=== PATIENT | male | born 1955 | race Caucasian/White ===

== ENCOUNTER 2018-08-25 18:59 | Emergency (ER) | payer BC, OTHER ==
[2018-08-25 19:13] VITALS: BP 157/92
--- NOTE | 2018-08-25 19:45 | EDM.PDOC ---
ED HPI GENERAL MEDICAL PROBLEM - General Chief Complaint: Trauma Stated Complaint: FELL IN BATHROOM HIT HEAD NECK INJURIED Time Seen by Provider: 08/25/18 19:08 Source of Information: Reports: Patient History Limitations: Reports: No Limitations - History of Present Illness INITIAL COMMENTS - FREE TEXT/NARRATIVE: The patient presents with a headache and neck pain after a fall this evening. He said he fell last week. He has some sinus issues and the other day he laid down and bed and got congested in the back of his throat and got up and then he feels passed out. This evening he was laying in bed and he got up to go to the bathroom and he tripped and fell and hit the cabinet door under the sink. He had no LOC. He is on eliquis for DVTs. He has a headache and neck pain. He is from the [facility] and talked with one of the commercial escrow officer down there and he gave him a c-collar. He denies numbness or weakness. He has an abrasion to the top of his head. He has no chest pain or shortness of breath. He has no arm, hip or leg pain. Onset: Sudden Duration: Minutes: Location: Reports: Head, Neck Quality: Reports: Sharp Severity: Moderate Improves with: Reports: Immobilization Worsens with: Reports: Movement Context: Reports: Trauma (He tripped and fell on his way to the bathroom) Associated Symptoms: Reports: Headaches. Denies: Chest Pain, Fever/Chills, Nausea/Vomiting, Shortness of Breath Neck Pain Score (Numeric/FACES): 5 head Pain Score (Numeric/FACES): 6 - Related Data Allergies Allergy/AdvReac Type Severity Reaction Status Date / Time bee pollen Allergy Cannot Verified 06/05/16 07:49 Remember Home Meds: Home Meds Omeprazole 20 mg PO DAILY 06/07/15 [History] atorvaSTATin [Lipitor] 10 mg PO DAILY 03/21/16 [History] Furosemide 40 mg PO DAILY 06/04/16 [History] Apixaban [Eliquis] 5 mg PO DAILY 08/25/18 [History] Cholecalciferol (Vitamin D3) [Vitamin D] 5,000 units PO DAILY 08/25/18 [History] Past Medical History HEENT History: Reports: Impaired Vision, Sinusitis Cardiovascular History: Reports: Blood Clots/VTE/DVT, Hypertension, SOB on Exertion Other Cardiovascular History: dvts, edema, swelling Respiratory History: Reports: Sleep Apnea, SOB Gastrointestinal History: Reports: GERD, Hiatal Hernia Genitourinary History: Reports: None Musculoskeletal History: Reports: Back Pain, Chronic, Neck Pain, Chronic, Osteoarthritis Neurological History: Reports: Headaches, Chronic Psychiatric History: Reports: None Endocrine/Metabolic History: Reports: Obesity/BMI 30+ - Past Surgical History HEENT Surgical History: Reports: Adenoidectomy, Naso-Sinus Surgery, Oral Surgery , Tonsillectomy, Other (See Below) GI Surgical History: Reports: Colonoscopy, Hernia, Abdominal, Hernia Repair/ Other Musculoskeletal Surgical History: Reports: Arthroscopic Knee, Other (See Below) Social & Family History - Tobacco Use Smoking Status *Q: Former Smoker Used Tobacco, but Quit: Yes Month/Year Tobacco Last Used: 1989 - Caffeine Use Caffeine Use: Reports: Coffee - Recreational Drug Use Recreational Drug Use: No Review of Systems - Review of Systems Review Of Systems: See Below Constitutional: Reports: No Symptoms Eyes: Reports: No Symptoms Ears: Reports: No Symptoms Nose: Reports: No Symptoms Mouth/Throat: Reports: No Symptoms Respiratory: Reports: No Symptoms Cardiovascular: Reports: No Symptoms GI/Abdominal: Reports: No Symptoms Genitourinary: Reports: No Symptoms Musculoskeletal: Reports: Neck Pain Skin: Reports: Other (Abrasion to the top of his head) Neurological: Reports: Headache. Denies: Numbness, Weakness ED EXAM, GENERAL - Physical Exam Exam: See Below Exam Limited By: No Limitations General Appearance: Alert, No Apparent Distress Ears: Normal External Exam Nose: Normal Inspection Head: Other (abrasion to the top of his head) Neck: Tender Midline (mild), Other (C-colar is on) Respiratory/Chest: No Respiratory Distress, Lungs Clear, Normal Breath Sounds Cardiovascular: Regular Rate, Rhythm, No Edema, No Murmur GI/Abdominal: Soft, Non-Tender, No Organomegaly, No Mass Back Exam: Normal Inspection Extremities: Normal Inspection Neurological: Alert, Oriented, No Motor/Sensory Deficits Course - Vital Signs Last Recorded V/S: Last Vital Signs Temp 98.2 F 08/25/18 19:09 Pulse 94 08/25/18 19:09 Resp 16 08/25/18 19:09 BP 157/92 H 08/25/18 19:09 Pulse Ox 97 08/25/18 19:09 - Orders/Labs/Meds Orders: Active Orders 24 hr Category Date Time Status Cardiac Monitoring [RC] . DIRECTED Care 08/25/18 19:13 Active COMPREHENSIVE METABOLIC PN,CMP [CHEM] Stat Lab 08/25/18 19:41 Received TROPONIN I [CHEM] Stat Lab 08/25/18 19:41 Received Labs: Laboratory Tests 08/25/18 08/25/18 Range/Units 19:41 19:41 WBC 7.14 (4.23-9.07) K/mm3 RBC 4.18 L (4.63-6.08) M/mm3 Hgb 15.5 (13.7-17.5) gm/L Hct 38.1 L (40.1-51.0) % MCV 91.1 (79.0-92.2) fl MCH 37.1 H (25.7-32.2) pg MCHC 40.7 H (32.2-35.5) g/dl RDW Std Deviation 43.4 (35.1-43.9) fL Plt Count 141 L (163-337) K/mm3 MPV 9.5 (9.4-12.3) fl Neut % (Auto) 57.2 (34.0-67.9) % Lymph % (Auto) 26.8 (21.8-53.1) % [place] % (Auto) 11.5 (5.3-12.2) % Eos % (Auto) 4.1 (0.8-7.0) Baso % (Auto) 0.3 (0.1-1.2) % Neut # (Auto) 4.09 (1.78-5.38) K/mm3 Lymph # (Auto) 1.91 (1.32-3.57) K/mm3 [place] # (Auto) 0.82 (0.30-0.82) K/mm3 Eos # (Auto) 0.29 (0.04-0.54) K/mm3 Baso # (Auto) 0.02 (0.01-0.08) K/mm3 PT 10.0 (9.5-12.1) SECONDS INR < 0.93 APTT 20 L (24-31) SECONDS - Re-Assessments/Exams Free Text/Narrative Re-Assessment/Exam: 08/25/18 19:[address] of his head and cervical spine and labs. 08/25/18 20:[address] of his cervical spine shows mild degenerative change. Nothing acute is identified on CT study of the cervical spine. The CT of his head shows sinus findings that are most likely chronic. Mild generalized atrophy. No acute intracranial abnormality is identified. His labs look good. I will discharge him home. Departure - Departure Time of Disposition: 20:30 Disposition: Home, Self-Care 01 Condition: Good Clinical Impression: Fall Qualifiers: Encounter type: initial encounter Qualified Code(s): W19.XXXA - Unspecified fall, initial encounter Abrasion of scalp Qualifiers: Encounter type: initial encounter Qualified Code(s): S00.01XA - Abrasion of scalp, initial encounter Cervical strain Qualifiers: Encounter type: initial encounter Qualified Code(s): S16.1XXA - Strain of muscle, fascia and tendon at neck level, initial encounter Head injury Qualifiers: Encounter type: initial encounter Qualified Code(s): S09.90XA - Unspecified injury of head, initial encounter - Discharge Information *PRESCRIPTION DRUG MONITORING PROGRAM REVIEWED*: Not Applicable *COPY OF PRESCRIPTION DRUG MONITORING REPORT IN PATIENT BENNY: Not Applicable Referrals: Edilia Chatterjee MD [Primary Care Provider] - Forms: ED Department Discharge Additional Instructions: Take tylenol or motrin for pain. Clean the abrasion with warm soapy water 2 times per day and apply antibiotic ointment after for 3 days. Please return if you are worse. - My Orders Last 24 Hours: My Active Orders 08/25/18 19:13 Cardiac Monitoring [RC] . DIRECTED 08/25/18 19:41 COMPREHENSIVE METABOLIC PN,CMP [CHEM] Stat TROPONIN I [CHEM] Stat - Assessment/Plan Last 24 Hours: My Active Orders 08/25/18 19:13 Cardiac Monitoring [RC] . DIRECTED 08/25/18 19:41 COMPREHENSIVE METABOLIC PN,CMP [CHEM] Stat TROPONIN I [CHEM] Stat
--- NOTE | 2018-08-25 19:54 | CT ---
CT cervical spine Technique: Multiple axial sections through the cervical spine were obtained from above C1 inferiorly to the bottom of T2. Reconstructed sagittal and coronal images were reviewed. Findings: Incomplete posterior arch of C1 is noted which is a normal variant. Moderate to severe disc space narrowing is noted at C3-4. Moderate left-sided neural foraminal stenosis is noted at C3-4. Posterior disc space narrowing is noted at C4-5. Posterior disc space narrowing is noted at C5-6. No bony central canal stenosis is seen. Mild scattered degenerative apophyseal change is seen throughout the cervical spine. No fracture is identified. No abnormal subluxation is seen. Impression: 1. Mild degenerative change as noted above. 2. Nothing acute is identified on CT study of the cervical spine. Diagnostic code #2
--- NOTE | 2018-08-25 19:56 | CT ---
Head CT Technique: Multiple axial sections through the brain were obtained. Intravenous contrast was not utilized. Comparison: No prior intracranial imaging. Findings: Ventricles long basal cisterns and sulci over the convexities are mildly prominent. No abnormal parenchymal densities are seen. No evidence of intracranial hemorrhage. No midline shift or mass effect is seen. Bone window settings were reviewed which shows no acute calvarial abnormality. Mucosal thickening is noted within portions of the ethmoid and frontal sinuses. Minimal mucosal thickening is seen within sphenoid sinus. Impression: 1. Sinus findings as noted above. Findings most likely are chronic. 2. Mild generalized atrophy. 3. No acute intracranial abnormality is identified. Diagnostic code #2
== END 2018-08-25 20:35 | disposition home or self-care (01) ==
LOC: JD.ED 18:59
DX: S16.1XXA Strain of muscle, fascia and tendon at neck level, initial encounter (principal); S00.01XA Abrasion of scalp, initial encounter; S09.90XA Unspecified injury of head, initial encounter; I10 Essential (primary) hypertension; W01.0XXA Fall on same level from slipping, tripping and stumbling without subsequent striking against object, initial encounter; Y92.002 Bathroom of unspecified non-institutional (private) residence as the place of occurrence of the external cause; Z91.030 Bee allergy status; Z79.899 Other long term (current) drug therapy; Z87.891 Personal history of nicotine dependence
CPT/HCPCS: 36415; 70450; 70450-26; 72125; 72125-26; 80053; 84484; 85025; 85610; 85730; 99283; 99284-25

== ENCOUNTER 2019-12-22 15:00 | Emergency (ER) | payer OTHER, MEDICARE ==
[2019-12-22 15:20] VITALS: BP 160/92; PULSE 83
--- NOTE | 2019-12-22 16:10 | EDM.PDOC ---
ED HPI GENERAL MEDICAL PROBLEM - General Chief Complaint: Lower Extremity Injury/Pain Stated Complaint: R FOOT AND LEG PAIN Time Seen by Provider: 12/22/19 15:25 Source of Information: Reports: Patient History Limitations: Reports: No Limitations - History of Present Illness INITIAL COMMENTS - FREE TEXT/NARRATIVE: Patient is a 64-year-old male who presents to the emergency department with complaints of redness, swelling, and pain to the base of his right great toe. Symptoms started about 2 days ago. Pain occasionally radiates across the top of his foot and up his leg. He also has lower extremity swelling to the level of the ankle. Patient has a history of DVTs. States [facility] and they recommended he come to the ER to be evaluated for a DVT. He is currently on Eliquis 5 mg twice daily. Denies a history of gout. 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 He denies any chest pain, lightheadedness, or shortness of breath. Right Foot Pain Score (Numeric/FACES): 7 - Related Data Allergies Allergy/AdvReac Type Severity Reaction Status Date / Time bee pollen Allergy Cannot Verified 12/22/19 15:20 Remember Home Meds: Home Meds Omeprazole 20 mg PO BID 06/07/15 [History] atorvaSTATin [Lipitor] 10 mg PO DAILY 03/21/16 [History] Furosemide 40 mg PO DAILY 06/04/16 [History] Apixaban [Eliquis] 5 mg PO DAILY 08/25/18 [History] Cholecalciferol (Vitamin D3) [Vitamin D] 4,000 units PO DAILY 08/25/18 [History] Albuterol [Proventil HFA] 2 puff INH Q6HR 12/22/19 [History] Fluticasone Propionate [24 Hour Allergy] 2 spray NASBOTH DAILY 12/22/19 [History] predniSONE [Prednisone] 20 mg PO ASDIRECTED #15 tablet 12/22/19 [Rx] Past Medical History HEENT History: Reports: Impaired Vision, Sinusitis Cardiovascular History: Reports: Blood Clots/VTE/DVT, Hypertension, SOB on Exertion Other Cardiovascular History: dvts, edema, swelling Respiratory History: Reports: Sleep Apnea, SOB Gastrointestinal History: Reports: GERD, Hiatal Hernia Genitourinary History: Reports: None Musculoskeletal History: Reports: Back Pain, Chronic, Neck Pain, Chronic, Osteoarthritis Neurological History: Reports: Headaches, Chronic Psychiatric History: Reports: None Endocrine/Metabolic History: Reports: Obesity/BMI 30+ - Past Surgical History HEENT Surgical History: Reports: Adenoidectomy, Naso-Sinus Surgery, Oral Surger y, Tonsillectomy, Other (See Below) GI Surgical History: Reports: Colonoscopy, Hernia, Abdominal, Hernia Repair/Other Musculoskeletal Surgical History: Reports: Arthroscopic Knee, Other (See Below) Social & Family History - Tobacco Use Smoking Status *Q: Former Smoker Used Tobacco, but Quit: Yes Month/Year Tobacco Last Used: 1989 - Caffeine Use Caffeine Use: Reports: Coffee - Recreational Drug Use Recreational Drug Use: No Review of Systems - Review of Systems Review Of Systems: See Below Constitutional: Reports: No Symptoms Eyes: Reports: No Symptoms Ears: Reports: No Symptoms Nose: Reports: No Symptoms Mouth/Throat: Reports: No Symptoms Respiratory: Reports: No Symptoms. Denies: Shortness of Breath, Cough Cardiovascular: Reports: No Symptoms. Denies: Chest Pain, Lightheadedness GI/Abdominal: Reports: No Symptoms Genitourinary: Reports: No Symptoms Musculoskeletal: Reports: Other (Redness, pain, swelling to the base of the right great toe) Skin: Reports: No Symptoms Neurological: Reports: No Symptoms ED EXAM, GENERAL - Physical Exam Exam: See Below General Appearance: Alert, WD/WN, No Apparent Distress Respiratory/Chest: No Respiratory Distress, Lungs Clear, Normal Breath Sounds, No Accessory Muscle Use, Chest Non-Tender Cardiovascular: Normal Peripheral Pulses, Regular Rate, Rhythm, No Gallop, No JVD, No Murmur, No Rub GI/Abdominal: Normal Bowel Sounds, Soft, Non-Tender, No Organomegaly, No Disten tion, No Abnormal Bruit, No Mass Extremities: Other (Redness, warmth, and swelling over the base of the right great toe. 1+ edema to the right foot and ankle.) Psychiatric: Normal Affect, Normal Mood Skin Exam: Warm, Dry, Intact, Normal Color, No Rash Course - Vital Signs Last Recorded V/S: Last Vital Signs Temp 99.0 F 12/22/19 15:11 Pulse 83 12/22/19 15:11 Resp 18 12/22/19 15:11 BP 160/92 H 12/22/19 15:11 Pulse Ox 98 12/22/19 15:11 - Orders/Labs/Meds Labs: Laboratory Tests 12/22/19 12/22/19 Range/Units 16:02 16:02 WBC 9.76 H (4.23-9.07) K/mm3 RBC 5.30 (4.63-6.08) M/mm3 Hgb 15.7 (13.7-17.5) gm/dl Hct 48.3 (40.1-51.0) % MCV 91.1 (79.0-92.2) fl MCH 29.6 (25.7-32.2) pg MCHC 32.5 (32.2-35.5) g/dl RDW Std Deviation 44.1 H (35.1-43.9) fL Plt Count 170 (163-337) K/mm3 MPV 9.1 L (9.4-12.3) fl Neut % (Auto) 69.4 H (34.0-67.9) % Lymph % (Auto) 17.6 L (21.8-53.1) % [place] % (Auto) 11.7 (5.3-12.2) % Eos % (Auto) 1.0 (0.8-7.0) Baso % (Auto) 0.2 (0.1-1.2) % Neut # (Auto) 6.77 H (1.78-5.38) K/mm3 Lymph # (Auto) 1.72 (1.32-3.57) K/mm3 [place] # (Auto) 1.14 H (0.30-0.82) K/mm3 Eos # (Auto) 0.10 (0.04-0.54) K/mm3 Baso # (Auto) 0.02 (0.01-0.08) K/mm3 Sodium 142 (136-145) mEq/L Potassium 3.6 (3.5-5.1) mEq/L Chloride 103 (98-107) mEq/L Carbon Dioxide 33 H (21-32) mEq/L Anion Gap 9.6 (5-15) BUN 12 (7-18) mg/dL Creatinine 1.4 H (0.7-1.3) mg/dL Est Cr Clr Drug Dosing 50.21 mL/min Estimated GFR (MDRD) 51 (>60) mL/min BUN/Creatinine Ratio 8.6 L (14-18) Glucose 112 (80-115) mg/dL Uric Acid 8.0 H (3.5-7.2) mg/dL Calcium 8.9 (8.5-10.1) mg/dL Total Bilirubin 0.5 (0.2-1.0) mg/dL AST 15 (15-37) U/L ALT 23 (16-63) U/L Alkaline Phosphatase 71 (46-116) U/L C-Reactive Protein 0.5 (<1.0) mg/dL Total Protein 7.1 (6.4-8.2) g/dl Albumin 3.5 (3.4-5.0) g/dl Globulin 3.6 gm/dL Albumin/Globulin Ratio 1.0 (1-2) - Re-Assessments/Exams Free Text/Narrative Re-Assessment/Exam: On exam, patient has redness, warmth, and slight edema over the base of the right great toe. My suspicion is that is suffering from gout, however he is concerned that he could have a blood clot due to his history. He is on Eliquis, so my suspicion for this is quite low, however we will complete a venous Doppler of the right lower extremity to rule out DVT. 12/22/19 17:17 Ultrasound of the right lower extremity was negative for DVT. Blood work is significant for uric acid elevated at 8.0. Patient is likely suffering from gout. We will start him on a course of prednisone with the first dose to be given here. Discharge instructions as documented. Departure - Departure Time of Disposition: 17:18 Disposition: Home, Self-Care 01 Condition: Good Clinical Impression: Gout Qualifiers: Gout site: toe Gout etiology: unspecified cause Chronicity: acute Laterality: right Qualified Code(s): M10.9 - Gout, unspecified - Discharge Information *PRESCRIPTION DRUG MONITORING PROGRAM REVIEWED*: No *COPY OF PRESCRIPTION DRUG MONITORING REPORT IN PATIENT BENNY: No Prescriptions: predniSONE [Prednisone] 20 mg PO ASDIRECTED #15 tablet Referrals: Edilia Chatterjee MD [Primary Care Provider] - Forms: ED Department Discharge Additional Instructions: You were seen in the emergency department today for pain, redness, and warmth to the base of your right great toe with some swelling of the right foot into the ankle. Your work-up included blood work and an ultrasound of your right lower extremity. Ultrasound was negative for DVT. Your blood work did show an elevated uric acid level consistent with a diagnosis of gout. You have been started on prednisone which is an anti-inflammatory. Take this medication as prescribed. You may use [id number] Tylenol as needed for pain. Ice over the toe intermittently for the next few days. If you should experience any new or worsening symptoms of concern, please do not hesitate to return to the emergency department. Sepsis Event Note (ED) - Evaluation Sepsis Screening Result: No Definite Risk - Focused Exam Vital Signs: Vital Signs Temp Pulse Resp BP Pulse Ox 12/22/19 15:11 99.0 F 83 18 160/92 H 98
--- NOTE | 2019-12-22 17:03 | US ---
Right lower extremity deep venous ultrasound: Duplex and color Doppler evaluation was obtained of the right common femoral, proximal greater saphenous, superficial femoral, popliteal, posterior tibial and peroneal veins. Left common femoral vein was also evaluated. Findings: Normal phasic flow, augmentation and compression is seen. Posterior tibial veins show very limited flow but appear to be patent. Impression: 1. Limited flow within the posterior tibial veins which appear patent. 2. Nothing appreciated to indicate deep venous thrombosis within the right lower extremity or within the left common femoral vein. Diagnostic code #2 This report was dictated in MDT
== END 2019-12-22 17:40 | disposition home or self-care (01) ==
LOC: JD.ED 15:00
DX: M10.9 Gout, unspecified (principal); Z91.030 Bee allergy status; Z79.01 Long term (current) use of anticoagulants; Z79.899 Other long term (current) drug therapy; K21.9 Gastro-esophageal reflux disease without esophagitis; I10 Essential (primary) hypertension
CPT/HCPCS: 36415; 80053; 84550; 85025; 86140; 93971-26-RT; 93971-RT; 99283; 99284-25

== ENCOUNTER 2021-02-25 13:11 | Emergency (ER) | payer MEDICARE, OTHER ==
[2021-02-25 13:52] VITALS: BP 147/75; PULSE 83
--- NOTE | 2021-02-25 15:14 | CR ---
Chest: Portable view of the chest was obtained. Comparison: No prior chest x-ray is available, prior chest CT of 04/02/16 was utilized. Heart size and mediastinum are within normal limits. Lungs are clear with no acute parenchymal change. Bony structures show nothing acute. Impression: 1. Nothing acute is seen on portable chest x-ray. Diagnostic code #1
--- NOTE | 2021-02-25 15:41 | EDM.PDOC ---
ED HPI GENERAL MEDICAL PROBLEM - General Chief Complaint: Fever Stated Complaint: FEVER COUGH Time Seen by Provider: 02/25/21 13:55 Source of Information: Reports: Patient, RN Notes Reviewed - History of Present Illness INITIAL COMMENTS - FREE TEXT/NARRATIVE: 65 yr old male with cough, low grade fever, chills off and on for about the last 3 days. Has had some dyspnea. No vomiting or diarrhea. No chest pain. Has not been vacinated. - Related Data Allergies Allergy/AdvReac Type Severity Reaction Status Date / Time bee pollen Allergy Severe Cannot Verified 02/25/21 13:51 Remember Home Meds: Home Meds Omeprazole 20 mg PO BID 06/07/15 [History] atorvaSTATin [Lipitor] 10 mg PO DAILY 03/21/16 [History] Furosemide 40 mg PO DAILY 06/04/16 [History] Apixaban [Eliquis] 5 mg PO BID 08/25/18 [History] Cholecalciferol (Vitamin D3) [Vitamin D] 4,000 units PO DAILY 08/25/18 [History] Albuterol [Proventil HFA] 2 puff INH Q6HR 12/22/19 [History] Fluticasone Propionate [24 Hour Allergy] 2 spray NASBOTH DAILY 12/22/19 [History] predniSONE [Prednisone] 20 mg PO DAILY 02/25/21 [History] Past Medical History HEENT History: Reports: Impaired Vision, Sinusitis Cardiovascular History: Reports: Blood Clots/VTE/DVT, Hypertension, SOB on Exertion Other Cardiovascular History: dvts, edema, swelling Respiratory History: Reports: Sleep Apnea, SOB Gastrointestinal History: Reports: GERD, Hiatal Hernia Genitourinary History: Reports: None Musculoskeletal History: Reports: Back Pain, Chronic, Neck Pain, Chronic, Osteoarthritis Neurological History: Reports: Headaches, Chronic Psychiatric History: Reports: None Endocrine/Metabolic History: Reports: Obesity/BMI 30+ Hematologic History: Reports: Anticoagulation Therapy - Past Surgical History HEENT Surgical History: Reports: Adenoidectomy, Naso-Sinus Surgery, Oral Surgery, Tonsillectomy, Other (See Below) GI Surgical History: Reports: Colonoscopy, Hernia, Abdominal, Hernia Repair/Other Musculoskeletal Surgical History: Reports: Arthroscopic Knee, Other (See Below) Other Musculoskeletal Surgeries/Procedures:: ulnar transposition Social & Family History - Tobacco Use Tobacco Use Status *Q: Never Tobacco User - Caffeine Use Caffeine Use: Reports: Coffee - Recreational Drug Use Recreational Drug Use: No ED ROS GENERAL - Review of Systems Review Of Systems: See Below Constitutional: Reports: Fever, Chills HEENT: Denies: Sinus Problem, Throat Pain Respiratory: Reports: Shortness of Breath, Cough Cardiovascular: Denies: Chest Pain Endocrine: Reports: Fatigue GI/Abdominal: Denies: Abdominal Pain, Nausea, Vomiting Musculoskeletal: Denies: Neck Pain Skin: Reports: No Symptoms Neurological: Denies: Headache ED EXAM, GENERAL - Physical Exam Exam: See Below General Appearance: Alert, No Apparent Distress Throat/Mouth: Normal Inspection Neck: Supple Respiratory/Chest: No Respiratory Distress, Lungs Clear, Normal Breath Sounds. No: Rales, Rhonchi, Wheezing Cardiovascular: Regular Rate, Rhythm GI/Abdominal: Non-Tender Extremities: Normal Inspection. No: Pedal Edema, Leg Pain, Increased Warmth, Redness Skin Exam: Warm, Dry, Normal Color Course - Vital Signs Last Recorded V/S: Last Vital Signs Temp 98.9 F 02/25/21 13:49 Pulse 83 02/25/21 13:49 Resp 24 H 02/25/21 13:49 BP 147/75 H 02/25/21 13:49 Pulse Ox 94 L 02/25/21 13:49 - Orders/Labs/Meds Labs: Laboratory Tests 02/25/21 02/25/21 02/25/21 Range/Units 14:14 14:45 15:39 WBC 6.26 (4.23-9.07) K/mm3 RBC 4.99 (4.63-6.08) M/mm3 Hgb 15.4 (13.7-17.5) gm/dl Hct 46.8 (40.1-51.0) % MCV 93.8 H (79.0-92.2) fl MCH 30.9 (25.7-32.2) pg MCHC 32.9 (32.2-35.5) g/dl RDW Std Deviation 45.9 H (35.1-43.9) fL Plt Count 125 L (163-337) K/mm3 MPV 9.4 (9.4-12.3) fl Neut % (Auto) 68.4 H (34.0-67.9) % Lymph % (Auto) 16.0 L (21.8-53.1) % [place] % (Auto) 15.2 H (5.3-12.2) % Eos % (Auto) 0 L (0.8-7.0) Baso % (Auto) 0.2 (0.1-1.2) % Neut # (Auto) 4.29 (1.78-5.38) K/mm3 Lymph # (Auto) 1.00 L (1.32-3.57) K/mm3 [place] # (Auto) 0.95 H (0.30-0.82) K/mm3 Eos # (Auto) 0.00 L (0.04-0.54) K/mm3 Baso # (Auto) 0.01 (0.01-0.08) K/mm3 C-Reactive Protein < 0.2 (<1.0) mg/dL Urine Color Yellow (Yellow) Urine Appearance Clear (Clear) Urine pH 6.0 (5.0-8.0) Ur Specific [place] 1.025 (1.005-1.030) Urine Protein Trace H (Negative) Urine Glucose (UA) Negative (Negative) Urine Ketones 2+ H (Negative) Urine Occult Blood Negative (Negative) Urine Nitrite Negative (Negative) Urine Bilirubin 1+ H (Negative) Urine Urobilinogen 1.0 (0.2-1.0) Ur Leukocyte Esterase Negative (Negative) Urine RBC 0-5 (0-5) /hpf Urine WBC 0-5 (0-5) /hpf Ur Squamous Epith Cells 0-5 (0-5) /hpf Amorphous Sediment Few H (NOT SEEN) /hpf Urine Bacteria Many H (FEW) /hpf Urine Mucus Few (FEW) /hpf - Re-Assessments/Exams Free Text/Narrative Re-Assessment/Exam: 02/25/21 16:20 With all of the covid going around I did want to screen him for covid. Pt refused. Concerned about "cancer risk from the swab" I am not going to argue with him. That is his choice. CXR clear, WBC normal, CRP 0.2 so it would be very unlikely that he has covid at this time. Ua does not show infection. Pt notified of UA result. Departure - Departure Time of Disposition: 15:39 Disposition: Home, Self-Care 01 Condition: Fair Clinical Impression: Viral syndrome - Discharge Information Instructions: Fever, Adult, [id number] Referrals: PCP,None [Primary Care Provider] - Forms: ED Department Discharge Additional Instructions: Your CXR looks good, no visible pneumonia. Your WBC is also normal which usually goes up with a serious bacterial infection. I will call you results of your urinalysis when it becomes available. If you need an antibiotic I will send it to your Pharmacy. I will discuss that with you when I call results. Rest, drink plenty of fluids. Follow up cllinic as needed, return to ED as needed if symptoms worsening in any way. Sepsis Event Note (ED) - Evaluation Sepsis Screening Result: No Definite Risk - Focused Exam Vital Signs: Vital Signs Temp Pulse Resp BP Pulse Ox 02/25/21 13:49 98.9 F 83 24 H 147/75 H 94 L
== END 2021-02-25 15:45 | disposition home or self-care (01) ==
LOC: JD.ED 13:11
DX: B34.9 Viral infection, unspecified (principal); I10 Essential (primary) hypertension; K21.9 Gastro-esophageal reflux disease without esophagitis; E66.9 Obesity, unspecified; Z68.33 Body mass index [BMI] 33.0-33.9, adult; Z79.899 Other long term (current) drug therapy; Z91.030 Bee allergy status; Z79.01 Long term (current) use of anticoagulants; Z86.718 Personal history of other venous thrombosis and embolism
CPT/HCPCS: 36415; 71045; 71045-26; 81001; 85025; 86140; 99283-25

== ENCOUNTER 2021-03-06 08:56 | Inpatient (IN) | payer MEDICARE, OTHER ==
[2021-03-06] MEDS: Dexamethasone 10 MG/ML SDV IVPUSH SCH (09:29)
--- NOTE | 2021-03-06 09:48 | EDM.PDOC ---
<Mabel Azevedo - Last Filed: 03/06/21 22:50> ED HPI GENERAL MEDICAL PROBLEM - General Chief Complaint: Respiratory Problem Stated Complaint: LOW O2 Time Seen by Provider: 03/06/21 09:11 - Related Data Allergies Allergy/AdvReac Type Severity Reaction Status Date / Time bee pollen Allergy Unknown Cannot Verified 03/07/21 13:19 Remember Home Meds: Home Meds Omeprazole 20 mg PO BID 06/07/15 [History] atorvaSTATin [Lipitor] 20 mg PO DAILY 03/21/16 [History] Furosemide 40 mg PO DAILY 06/04/16 [History] Apixaban [Eliquis] 5 mg PO BID 08/25/18 [History] Cholecalciferol (Vitamin D3) [Vitamin D] 50 mcg PO DAILY 08/25/18 [History] Albuterol [Proventil HFA] 2 puff INH Q6HR 12/22/19 [History] Fluticasone Propionate [24 Hour Allergy] 2 spray NASBOTH DAILY 12/22/19 [Hist ory] Lutein/Minerals/Vit A,C & E [Ocuvite] 1 tab PO DAILY 03/07/21 [History] Course - Re-Assessments/Exams Free Text/Narrative Re-Assessment/Exam: 03/06/21 17:32 Care assumed from Terese Lay NP. Patient resting comfortably at this time. Vital signs remained stable. 03/06/21 21:00 Nursing staff report oxygen saturation came down into the 80s while on the nonrebreather. He is currently up on the commode. I have ordered high flow oxygen to be initiated. 03/06/21 22:50 Patient is maintaining oxygen saturation in the low 90s on 60 L of O2 at 90% FiO2 by high flow nasal cannula. Case was discussed with ER physician, Dr. Masters. He will assume care and disposition of patient at end of shift. Departure - Departure Disposition: Admitted As Inpatient 64 Clinical Impression: Pneumonia due to COVID-19 virus, Hypoxia - Discharge Information <Juan Manuel Bryson - Last Filed: 03/07/21 09:54> Course - Re-Assessments/Exams Free Text/Narrative Re-Assessment/Exam: 03/07/21 10:04 We had a hospital bed open up care I have reviewed the situation with Dr. Lira who will assume care Departure - Departure Time of Disposition: 10:04 <Terese Lay - Last Filed: 03/10/21 07:38> ED HPI GENERAL MEDICAL PROBLEM - General Source of Information: Reports: Patient History Limitations: Reports: Other (Patient is a very poor historian.) - History of Present Illness INITIAL COMMENTS - FREE TEXT/NARRATIVE: 65-year-old male presents to the emergency department accompanied by his with complaints of severe shortness of breath. Patient is a poor historian and cannot give much history. Looking at past history, patient was seen in this emergency department on 02/25/2021. At that time he complained of a cough, low- grade fever, chills off and on for 3 days prior to that and some shortness of breath he had not had vomiting or diarrhea. He denied chest pain. He had not received his Covid vaccination. Patient did have labs completed at that time and they were essentially unremarkable. The physician requested to do a Covid swab however the patient did refuse due to "cancer risk from the swab". Chest x-ray was clear on that visit as well. He was then discharged home. Past medical history from that visit reveals a history of blood clots/VTE/DVT, hypertension and shortness of breath on exertion. He denies tobacco history. Upon presentation during triage today patient is dusky in appearance. His O2 saturations at the time of triage are in the 70s on room air. He is dyspneic and and able to speak more than 1-2 words per sentence. He is also tachypneic. The patient's is here and does notify nursing staff that the patient has a significant history of alcoholism and noncompliance with his medications. Past Medical History HEENT History: Reports: Impaired Vision, Sinusitis Cardiovascular History: Reports: Blood Clots/VTE/DVT, Hypertension, SOB on Exertion Other Cardiovascular History: dvts, edema, swelling Respiratory History: Reports: Sleep Apnea, SOB Gastrointestinal History: Reports: GERD, Hiatal Hernia Genitourinary History: Reports: None Musculoskeletal History: Reports: Back Pain, Chronic, Neck Pain, Chronic, Osteoarthritis Neurological History: Reports: Headaches, Chronic Psychiatric History: Reports: None Endocrine/Metabolic History: Reports: Obesity/BMI 30+ Hematologic History: Reports: Anticoagulation Therapy - Past Surgical History HEENT Surgical History: Reports: Adenoidectomy, Naso-Sinus Surgery, Oral Surgery, Tonsillectomy, Other (See Below) GI Surgical History: Reports: Colonoscopy, Hernia, Abdominal, Hernia Repair/Other Musculoskeletal Surgical History: Reports: Arthroscopic Knee, Other (See Below) Other Musculoskeletal Surgeries/Procedures:: ulnar transposition Social & Family History - Caffeine Use Caffeine Use: Reports: Coffee ED ROS GENERAL - Review of Systems Review Of Systems: Unable To Obtain Reason Not Obtained: Patient is a very poor historian. Only able to speak in 1-2 word Constitutional: Reports: Fatigue Respiratory: Denies: Pleuritic Chest Pain Cardiovascular: Denies: Chest Pain Neurological: Reports: No Symptoms Psychiatric: Reports: No Symptoms Hematologic/Lymphatic: Reports: No Symptoms ED EXAM, GENERAL - Physical Exam Exam: See Below Exam Limited By: Other (Patient is a poor historian. He is only speaking in 1-2 word sentences as well.) General Appearance: Lethargic, Severe Distress Ears: Normal External Exam, Hearing Grossly Normal Nose: Normal Inspection Throat/Mouth: Normal Inspection, Normal Voice, No Airway Compromise, Perioral Cyanosis Head: Atraumatic, Normocephalic Neck: Normal Inspection, Supple Respiratory/Chest: Respiratory Distress (Severe), Decreased Breath Sounds, Crackles (Bilaterally posteriorly), Accessory Muscle Use Cardiovascular: Normal Peripheral Pulses, Regular Rate, Rhythm, No Edema, No Murmur Peripheral Pulses: 2+: Radial (L), Radial (R) GI/Abdominal: Normal Bowel Sounds, Soft, Non-Tender, No Distention (Male) Exam: Deferred Rectal (Males) Exam: Deferred Back Exam: Normal Inspection Extremities: Normal Range of Motion, Non-Tender, Mottled Neurological: Confused (Due to hypoxia) Psychiatric: Anxious Skin Exam: Warm, Dry, Intact, No Rash, Other (Dusky) Lymphatic: No Adenopathy #1 Interpretation EKG Date: 03/06/21 Time: 09:29 Rhythm: NSR Rate (Beats/Min): 101 [place]: Normal P-Wave: Present QRS: Normal ST-T: Normal QT: Normal Comparison: NA - No Prior EKG EKG Interpretation Comments: Per Dr. Chacon interpretation: Sinus tachycardia at a rate of 101; ventricular premature complex; probable left atrial enlargement; low voltage, precordial leads; artifact in leads I, 2, 3, aVR, aVL, aVF Course - Vital Signs Text/Narrative:: As stated above, patient presents with respiratory distress. History of Covid- like symptoms however had been refusing testing on last ED visit. At the time of my exam, patient's O2 saturations are in the 70s on room air. Nursing staff did apply a nasal cannula which brought his O2 saturations up into the 80s. I have applied a nonrebreather mask on this patient at 15 L. Eventually patient's O2 saturations did come up into the 90s. Again, patient is a very poor historian. Lung sounds are diminished bilaterally. His skin is hot to touch. I have ordered lab studies to include a CBC, CMP, magnesium, D-dimer, PT/INR, PTT, ferritin, LDH, C-reactive protein, lactic acid and blood cultures x2. Will also obtain an EKG and a chest x-ray. We will also obtain arterial blood gases for this patient. We will get a Covid swab as well. Last Recorded V/S: Last Vital Signs Temp 97.3 F 03/09/21 23:37 Pulse 91 03/09/21 23:37 Resp 60 H 03/09/21 23:37 BP 149/82 H 03/09/21 23:37 Pulse Ox 77 L 03/10/21 05:44 - Orders/Labs/Meds Orders: Medication Orders Acetaminophen (Acetaminophen 325 Mg Tab) 650 mg PO Q4H PRN PRN Reason: Pain (Mild 1-3)/fever Hydrocodone Bitart/Acetaminophen (Acetaminophen/Hydrocodone 325-5 Mg Tab) 1 tab PO Q4H PRN PRN Reason: Pain (moderate 4-6) Albuterol (Albuterol 6.7 Gm Inhaler) 0 gm INH Q6H [facility] Last Admin: 03/10/21 05:24 Dose: Not Given Documented by: Admin: 03/09/21 21:24 Dose: Not Given Documented by: Admin: 03/09/21 18:01 Dose: Not Given Documented by: Admin: 03/09/21 13:35 Dose: Not Given Documented by: Admin: 03/09/21 05:37 Dose: Not Given Documented by: Admin: 03/08/21 21:37 Dose: 2 puff Documented by: Admin: 03/08/21 16:30 Dose: 2 puff Documented by: Admin: 03/08/21 09:47 Dose: 2 puff Documented by: Admin: 03/08/21 04:06 Dose: 2 puff Documented by: Admin: 03/07/21 21:22 Dose: 2 puff Documented by: Admin: 03/07/21 16:07 Dose: 2 puff Documented by: MANJINDER Albuterol/Ipratropium (Albuterol/Ipratropium 3.0-0.5 Mg/3 Ml Neb Soln) 3 ml NEB Q4HRRT PRN PRN Reason: Shortness of Breath Last Admin: 03/10/21 05:40 Dose: 3 ml Documented by: Admin: 03/09/21 21:16 Dose: 3 ml Documented by: Admin: 03/09/21 17:31 Dose: 3 ml Documented by: MANJINDER Apixaban (Apixaban 5 Mg Tab) 5 mg PO BID [facility] Last Admin: 03/09/21 20:51 Dose: Not Given Documented by: Admin: 03/09/21 10:12 Dose: 5 mg Documented by: Admin: 03/08/21 21:44 Dose: 5 mg Documented by: Admin: 03/08/21 08:28 Dose: 5 mg Documented by: Admin: 03/07/21 21:29 Dose: Not Given Documented by: Admin: 03/07/21 09:17 Dose: 5 mg Documented by: Admin: 03/06/21 21:46 Dose: 5 mg Documented by: DARIEN Atorvastatin Calcium (Atorvastatin 20 Mg Tab) 20 mg PO DAILY [facility] Last Admin: 03/09/21 10:05 Dose: 20 mg Documented by: Admin: 03/08/21 08:28 Dose: 20 mg Documented by: URBANO Baricitinib (Baricitinib 2 Mg Tab) 2 mg PO Q24H [facility]AGAN Stop: 03/20/21 21:31 Last Admin: 03/09/21 20:51 Dose: Not Given Documented by: Admin: 03/08/21 21:44 Dose: 2 mg Documented by: Admin: 03/07/21 21:37 Dose: 2 mg Documented by: KIP Dexamethasone (Dexamethasone 10 Mg/Ml Sdv) 20 mg IVPUSH DAILY KEAGAN Stop: 03/14/21 23:59 Last Admin: 03/09/21 10:10 Dose: 20 mg Documented by: KARLOS Dexamethasone (Dexamethasone 4 Mg Tab) 6 mg PO DAILY [facility] Fluticasone Propionate (Fluticasone Propionate Nasal [place] 16 Gm Bottle) 0 gm NASBOTH DAILY [facility] Last Admin: 03/09/21 10:26 Dose: 2 sprays Documented by: KARLOS Furosemide (Furosemide 40 Mg Tab) 40 mg PO DAILY [facility] Last Admin: 03/09/21 10:13 Dose: 40 mg Documented by: Admin: 03/08/21 08:28 Dose: 40 mg Documented by: URBANO Azithromycin 500 mg/ Sodium (Chloride) 250 mls @ 250 mls/hr IV Q24H [facility] Last Admin: 03/09/21 15:54 Dose: 250 mls/hr Documented by: Infusion: 03/08/21 15:30 Dose: 250 mls/hr Documented by: Admin: 03/08/21 14:30 Dose: 250 mls/hr Documented by: Infusion: 03/07/21 19:26 Dose: 250 mls/hr Documented by: Admin: 03/07/21 18:26 Dose: 250 mls/hr Documented by: ЕКАТЕРИНА Infusion: 03/06/21 17:56 Dose: 250 mls/hr Documented by: ЕКАТЕРИНА Admin: 03/06/21 16:56 Dose: 250 mls/hr Documented by: SURJIT Remdesivir 100 mg/ Sodium (Chloride) 100 mls @ 100 mls/hr IV Q24H KEAGAN Stop: 03/10/21 18:14 Last Admin: 03/09/21 18:00 Dose: 100 mls/hr Documented by: Infusion: 03/08/21 18:58 Dose: 100 mls/hr Documented by: Admin: 03/08/21 17:58 Dose: 100 mls/hr Documented by: Infusion: 03/07/21 20:53 Dose: 100 mls/hr Documented by: Admin: 03/07/21 19:53 Dose: 100 mls/hr Documented by: KIP Ceftriaxone Sodium 2 gm/ (Sodium Chloride) 100 mls @ 200 mls/hr IV Q24H KEAGAN Stop: 03/10/21 17:29 Last Admin: 03/09/21 17:10 Dose: 200 mls/hr Documented by: Infusion: 03/08/21 17:16 Dose: 200 mls/hr Documented by: Admin: 03/08/21 16:46 Dose: 200 mls/hr Documented by: Infusion: 03/07/21 21:20 Dose: 200 mls/hr Documented by: Admin: 03/07/21 20:50 Dose: 200 mls/hr Documented by: KIP Lorazepam (Lorazepam 2 Mg/Ml Sdv) 1 - 2 mg IVPUSH Q1H PRN; Protocol PRN Reason: Withdrawal Symptoms Last Admin: 03/10/21 06:01 Dose: 2 mg Documented by: Admin: 03/10/21 03:38 Dose: 2 mg Documented by: Admin: 03/10/21 00:08 Dose: 2 mg Documented by: Admin: 03/09/21 19:58 Dose: 2 mg Documented by: Admin: 03/09/21 17:50 Dose: 2 mg Documented by: Admin: 03/09/21 15:50 Dose: 1 mg Documented by: KARLOS Ondansetron HCl (Ondansetron 4 Mg/2 Ml Sdv) 4 mg IV Q6H PRN PRN Reason: Nausea/Vomiting Pantoprazole Sodium (Pantoprazole 40 Mg Tab.Cr) 40 mg PO BIDAC KEAGAN Last Admin: 03/10/21 05:38 Dose: Not Given Documented by: Admin: 03/09/21 17:11 Dose: Not Given Documented by: Admin: 03/09/21 06:31 Dose: Not Given Documented by: Admin: 03/08/21 15:24 Dose: 40 mg Documented by: Admin: 03/08/21 06:21 Dose: Not Given Documented by: Admin: 03/07/21 16:53 Dose: 40 mg Documented by: ЕКАТЕРИНА Sodium Chloride (Sodium Chloride 0.9% 10 Ml Syringe) 10 ml FLUSH ONETIME PRN PRN Reason: Keep Vein Open Last Admin: 03/09/21 18:57 Dose: 30 ml Documented by: Admin: 03/06/21 11:09 Dose: 10 ml Documented by: [email or web address] Admin: 03/06/21 10:58 Dose: 10 ml Documented by: SURJIT Trazodone HCl (Trazodone 50 Mg Tab) 50 mg PO BEDTIME PRN PRN Reason: Insomnia Last Admin: 03/08/21 23:28 Dose: 50 mg Documented by: JODIE Labs: Laboratory Tests 03/06/21 03/06/21 03/06/21 Range/Units 09:10 09:10 09:10 WBC (4.23-9.07) K/mm3 RBC (4.63-6.08) M/mm3 Hgb (13.7-17.5) gm/dl Hct (40.1-51.0) % MCV (79.0-92.2) fl MCH (25.7-32.2) pg MCHC (32.2-35.5) g/dl RDW Std Deviation (35.1-43.9) fL Plt Count (163-337) K/mm3 MPV (9.4-12.3) fl Neut % (Auto) (34.0-67.9) % Lymph % (Auto) (21.8-53.1) % [place] % (Auto) (5.3-12.2) % Eos % (Auto) (0.8-7.0) Baso % (Auto) (0.1-1.2) % Neut # (Auto) (1.78-5.38) K/mm3 Lymph # (Auto) (1.32-3.57) K/mm3 [place] # (Auto) (0.30-0.82) K/mm3 Eos # (Auto) (0.04-0.54) K/mm3 Baso # (Auto) (0.01-0.08) K/mm3 Manual Slide Review PT (9.7-12.0) SECONDS INR APTT 26.1 (21.7-31.4) SECONDS D-Dimer, Quantitative 5.42 H (0.19-0.50) mg/L ABG pH (7.35-7.45) ABG pCO2 (35.0-45.0) mmHg ABG pO2 (80.0-100.0) mmHg ABG HCO3 (22.0-26.0) meq/L ABG O2 Saturation (96.0-97.0) % ABG Base Excess (-2-2.0) Edmundo Test Sodium (136-145) mEq/L Potassium (3.5-5.1) mEq/L Chloride (98-107) mEq/L Carbon Dioxide (21-32) mEq/L Anion Gap (5-15) BUN (7-18) mg/dL Creatinine (0.7-1.3) mg/dL Est Cr Clr Drug Dosing Estimated GFR (MDRD) (>60) mL/min BUN/Creatinine Ratio (14-18) Glucose (70-99) mg/dL Lactic Acid (0.4-2.0) mmol/L Calcium (8.5-10.1) mg/dL Magnesium (1.8-2.4) mg/dL Ferritin 1376 H (26-388) ng/ml Total Bilirubin (0.2-1.0) mg/dL Direct Bilirubin (0.0-0.2) mg/dl Indirect Bilirubin AST (15-37) U/L ALT (16-63) U/L Alkaline Phosphatase (46-116) U/L Troponin I (0.00-0.056) ng/mL C-Reactive Protein (<1.0) mg/dL NT-Pro-B Natriuret Pep (0-125) pg/mL Total Protein (6.4-8.2) g/dl Albumin (3.4-5.0) g/dl Globulin gm/dL Albumin/Globulin Ratio (1-2) Procalcitonin ng/mL Urine Color (Yellow) Urine Appearance (Clear) Urine pH (5.0-8.0) Ur Specific [place] (1.005-1.030) Urine Protein (Negative) Urine Glucose (UA) (Negative) Urine Ketones (Negative) Urine Occult Blood (Negative) Urine Nitrite (Negative) Urine Bilirubin (Negative) Urine Urobilinogen (0.2-1.0) Ur Leukocyte Esterase (Negative) U Hyaline Cast (Auto) (0-5) /lpf Urine RBC (0-5) /hpf Urine WBC (0-5) /hpf Ur Epithelial Cells (0-5) /hpf Urine Bacteria (FEW) /hpf Urine Mucus (FEW) /hpf SARS-CoV-2 RNA (MARISOL) (NEGATIVE) 03/06/21 03/06/21 03/06/21 Range/Units 09:10 09:10 09:10 WBC (4.23-9.07) K/mm3 RBC (4.63-6.08) M/mm3 Hgb (13.7-17.5) gm/dl Hct (40.1-51.0) % MCV (79.0-92.2) fl MCH (25.7-32.2) pg MCHC (32.2-35.5) g/dl RDW Std Deviation (35.1-43.9) fL Plt Count (163-337) K/mm3 MPV (9.4-12.3) fl Neut % (Auto) (34.0-67.9) % Lymph % (Auto) (21.8-53.1) % [place] % (Auto) (5.3-12.2) % Eos % (Auto) (0.8-7.0) Baso % (Auto) (0.1-1.2) % Neut # (Auto) (1.78-5.38) K/mm3 Lymph # (Auto) (1.32-3.57) K/mm3 [place] # (Auto) (0.30-0.82) K/mm3 Eos # (Auto) (0.04-0.54) K/mm3 Baso # (Auto) (0.01-0.08) K/mm3 Manual Slide Review PT (9.7-12.0) SECONDS INR APTT (21.7-31.4) SECONDS D-Dimer, Quantitative (0.19-0.50) mg/L ABG pH (7.35-7.45) ABG pCO2 (35.0-45.0) mmHg ABG pO2 (80.0-100.0) mmHg ABG HCO3 (22.0-26.0) meq/L ABG O2 Saturation (96.0-97.0) % ABG Base Excess (-2-2.0) Edmundo Test Sodium 143 (136-145) mEq/L Potassium 4.0 (3.5-5.1) mEq/L Chloride 104 (98-107) mEq/L Carbon Dioxide 25 (21-32) mEq/L Anion Gap 18.0 H (5-15) BUN 33 H (7-18) mg/dL Creatinine 2.0 H (0.7-1.3) mg/dL Est Cr Clr Drug Dosing TNP Estimated GFR (MDRD) 33 (>60) mL/min BUN/Creatinine Ratio 16.5 (14-18) Glucose 160 H (70-99) mg/dL Lactic Acid 3.0 H* (0.4-2.0) mmol/L Calcium 9.9 (8.5-10.1) mg/dL Magnesium (1.8-2.4) mg/dL Ferritin (26-388) ng/ml Total Bilirubin 1.7 H (0.2-1.0) mg/dL Direct Bilirubin 0.70 H (0.0-0.2) mg/dl Indirect Bilirubin 1.00 AST 112 H (15-37) U/L ALT 76 H (16-63) U/L Alkaline Phosphatase 60 (46-116) U/L Troponin I (0.00-0.056) ng/mL C-Reactive Protein 23.3 H* (<1.0) mg/dL NT-Pro-B Natriuret Pep (0-125) pg/mL Total Protein 8.2 (6.4-8.2) g/dl Albumin 3.1 L (3.4-5.0) g/dl Globulin 5.1 gm/dL Albumin/Globulin Ratio 0.6 L (1-2) Procalcitonin 0.43 H ng/mL Urine Color (Yellow) Urine Appearance (Clear) Urine pH (5.0-8.0) Ur Specific [place] (1.005-1.030) Urine Protein (Negative) Urine Glucose (UA) (Negative) Urine Ketones (Negative) Urine Occult Blood (Negative) Urine Nitrite (Negative) Urine Bilirubin (Negative) Urine Urobilinogen (0.2-1.0) Ur Leukocyte Esterase (Negative) U Hyaline Cast (Auto) (0-5) /lpf Urine RBC (0-5) /hpf Urine WBC (0-5) /hpf Ur Epithelial Cells (0-5) /hpf Urine Bacteria (FEW) /hpf Urine Mucus (FEW) /hpf SARS-CoV-2 RNA (MARISOL) (NEGATIVE) 03/06/21 03/06/21 03/06/21 Range/Units 09:10 09:10 09:10 WBC 12.82 H (4.23-9.07) K/mm3 RBC 6.04 (4.63-6.08) M/mm3 Hgb 18.4 H D (13.7-17.5) gm/dl Hct 54.2 H (40.1-51.0) % MCV 89.7 D (79.0-92.2) fl MCH 30.5 (25.7-32.2) pg MCHC 33.9 (32.2-35.5) g/dl RDW Std Deviation 45.0 H (35.1-43.9) fL Plt Count 190 (163-337) K/mm3 MPV 10.8 (9.4-12.3) fl Neut % (Auto) 85.8 H (34.0-67.9) % Lymph % (Auto) 8.6 L (21.8-53.1) % [place] % (Auto) 4.8 L (5.3-12.2) % Eos % (Auto) 0 L (0.8-7.0) Baso % (Auto) 0.3 (0.1-1.2) % Neut # (Auto) 11.00 H (1.78-5.38) K/mm3 Lymph # (Auto) 1.10 L (1.32-3.57) K/mm3 [place] # (Auto) 0.62 (0.30-0.82) K/mm3 Eos # (Auto) 0.00 L (0.04-0.54) K/mm3 Baso # (Auto) 0.04 (0.01-0.08) K/mm3 Manual Slide Review Normal smear PT 11.6 (9.7-12.0) SECONDS INR 1.05 APTT (21.7-31.4) SECONDS D-Dimer, Quantitative (0.19-0.50) mg/L ABG pH (7.35-7.45) ABG pCO2 (35.0-45.0) mmHg ABG pO2 (80.0-100.0) mmHg ABG HCO3 (22.0-26.0) meq/L ABG O2 Saturation (96.0-97.0) % ABG Base Excess (-2-2.0) Edmundo Test Sodium (136-145) mEq/L Potassium (3.5-5.1) mEq/L Chloride (98-107) mEq/L Carbon Dioxide (21-32) mEq/L Anion Gap (5-15) BUN (7-18) mg/dL Creatinine (0.7-1.3) mg/dL Est Cr Clr Drug Dosing Estimated GFR (MDRD) (>60) mL/min BUN/Creatinine Ratio (14-18) Glucose (70-99) mg/dL Lactic Acid (0.4-2.0) mmol/L Calcium (8.5-10.1) mg/dL Magnesium 3.1 H (1.8-2.4) mg/dL Ferritin (26-388) ng/ml Total Bilirubin (0.2-1.0) mg/dL Direct Bilirubin (0.0-0.2) mg/dl Indirect Bilirubin AST (15-37) U/L ALT (16-63) U/L Alkaline Phosphatase (46-116) U/L Troponin I (0.00-0.056) ng/mL C-Reactive Protein (<1.0) mg/dL NT-Pro-B Natriuret Pep (0-125) pg/mL Total Protein (6.4-8.2) g/dl Albumin (3.4-5.0) g/dl Globulin gm/dL Albumin/Globulin Ratio (1-2) Procalcitonin ng/mL Urine Color (Yellow) Urine Appearance (Clear) Urine pH (5.0-8.0) Ur Specific [place] (1.005-1.030) Urine Protein (Negative) Urine Glucose (UA) (Negative) Urine Ketones (Negative) Urine Occult Blood (Negative) Urine Nitrite (Negative) Urine Bilirubin (Negative) Urine Urobilinogen (0.2-1.0) Ur Leukocyte Esterase (Negative) U Hyaline Cast (Auto) (0-5) /lpf Urine RBC (0-5) /hpf Urine WBC (0-5) /hpf Ur Epithelial Cells (0-5) /hpf Urine Bacteria (FEW) /hpf Urine Mucus (FEW) /hpf SARS-CoV-2 RNA (MARISOL) (NEGATIVE) 03/06/21 03/06/21 03/06/21 Range/Units 09:10 09:10 09:11 WBC (4.23-9.07) K/mm3 RBC (4.63-6.08) M/mm3 Hgb (13.7-17.5) gm/dl Hct (40.1-51.0) % MCV (79.0-92.2) fl MCH (25.7-32.2) pg MCHC (32.2-35.5) g/dl RDW Std Deviation (35.1-43.9) fL Plt Count (163-337) K/mm3 MPV (9.4-12.3) fl Neut % (Auto) (34.0-67.9) % Lymph % (Auto) (21.8-53.1) % [place] % (Auto) (5.3-12.2) % Eos % (Auto) (0.8-7.0) Baso % (Auto) (0.1-1.2) % Neut # (Auto) (1.78-5.38) K/mm3 Lymph # (Auto) (1.32-3.57) K/mm3 [place] # (Auto) (0.30-0.82) K/mm3 Eos # (Auto) (0.04-0.54) K/mm3 Baso # (Auto) (0.01-0.08) K/mm3 Manual Slide Review PT (9.7-12.0) SECONDS INR APTT (21.7-31.4) SECONDS D-Dimer, Quantitative (0.19-0.50) mg/L ABG pH 7.29 L (7.35-7.45) ABG pCO2 38.2 (35.0-45.0) mmHg ABG pO2 123.0 H (80.0-100.0) mmHg ABG HCO3 17.7 L (22.0-26.0) meq/L ABG O2 Saturation 90.2 L (96.0-97.0) % ABG Base Excess -8.1 L (-2-2.0) Edmundo Test Positive Sodium (136-145) mEq/L Potassium (3.5-5.1) mEq/L Chloride (98-107) mEq/L Carbon Dioxide (21-32) mEq/L Anion Gap (5-15) BUN (7-18) mg/dL Creatinine (0.7-1.3) mg/dL Est Cr Clr Drug Dosing Estimated GFR (MDRD) (>60) mL/min BUN/Creatinine Ratio (14-18) Glucose (70-99) mg/dL Lactic Acid (0.4-2.0) mmol/L Calcium (8.5-10.1) mg/dL Magnesium (1.8-2.4) mg/dL Ferritin (26-388) ng/ml Total Bilirubin (0.2-1.0) mg/dL Direct Bilirubin (0.0-0.2) mg/dl Indirect Bilirubin AST (15-37) U/L ALT (16-63) U/L Alkaline Phosphatase (46-116) U/L Troponin I 0.102 H* (0.00-0.056) ng/mL C-Reactive Protein (<1.0) mg/dL NT-Pro-B Natriuret Pep 974 H (0-125) pg/mL Total Protein (6.4-8.2) g/dl Albumin (3.4-5.0) g/dl Globulin gm/dL Albumin/Globulin Ratio (1-2) Procalcitonin ng/mL Urine Color (Yellow) Urine Appearance (Clear) Urine pH (5.0-8.0) Ur Specific Chinle (1.005-1.030) Urine Protein (Negative) Urine Glucose (UA) (Negative) Urine Ketones (Negative) Urine Occult Blood (Negative) Urine Nitrite (Negative) Urine Bilirubin (Negative) Urine Urobilinogen (0.2-1.0) Ur Leukocyte Esterase (Negative) U Hyaline Cast (Auto) (0-5) /lpf Urine RBC (0-5) /hpf Urine WBC (0-5) /hpf Ur Epithelial Cells (0-5) /hpf Urine Bacteria (FEW) /hpf Urine Mucus (FEW) /hpf SARS-CoV-2 RNA (MARISOL) (NEGATIVE) 03/06/21 03/06/21 03/06/21 Range/Units 09:21 12:02 12:09 WBC (4.23-9.07) K/mm3 RBC (4.63-6.08) M/mm3 Hgb (13.7-17.5) gm/dl Hct (40.1-51.0) % MCV (79.0-92.2) fl MCH (25.7-32.2) pg MCHC (32.2-35.5) g/dl RDW Std Deviation (35.1-43.9) fL Plt Count (163-337) K/mm3 MPV (9.4-12.3) fl Neut % (Auto) (34.0-67.9) % Lymph % (Auto) (21.8-53.1) % Johnson % (Auto) (5.3-12.2) % Eos % (Auto) (0.8-7.0) Baso % (Auto) (0.1-1.2) % Neut # (Auto) (1.78-5.38) K/mm3 Lymph # (Auto) (1.32-3.57) K/mm3 Johnson # (Auto) (0.30-0.82) K/mm3 Eos # (Auto) (0.04-0.54) K/mm3 Baso # (Auto) (0.01-0.08) K/mm3 Manual Slide Review PT (9.7-12.0) SECONDS INR APTT (21.7-31.4) SECONDS D-Dimer, Quantitative (0.19-0.50) mg/L ABG pH (7.35-7.45) ABG pCO2 (35.0-45.0) mmHg ABG pO2 (80.0-100.0) mmHg ABG HCO3 (22.0-26.0) meq/L ABG O2 Saturation (96.0-97.0) % ABG Base Excess (-2-2.0) Edmundo Test Sodium (136-145) mEq/L Potassium (3.5-5.1) mEq/L Chloride (98-107) mEq/L Carbon Dioxide (21-32) mEq/L Anion Gap (5-15) BUN (7-18) mg/dL Creatinine (0.7-1.3) mg/dL Est Cr Clr Drug Dosing Estimated GFR (MDRD) (>60) mL/min BUN/Creatinine Ratio (14-18) Glucose (70-99) mg/dL Lactic Acid 2.5 H* (0.4-2.0) mmol/L Calcium (8.5-10.1) mg/dL Magnesium (1.8-2.4) mg/dL Ferritin (26-388) ng/ml Total Bilirubin (0.2-1.0) mg/dL Direct Bilirubin (0.0-0.2) mg/dl Indirect Bilirubin AST (15-37) U/L ALT (16-63) U/L Alkaline Phosphatase (46-116) U/L Troponin I 0.105 H* (0.00-0.056) ng/mL C-Reactive Protein (<1.0) mg/dL NT-Pro-B Natriuret Pep (0-125) pg/mL Total Protein (6.4-8.2) g/dl Albumin (3.4-5.0) g/dl Globulin gm/dL Albumin/Globulin Ratio (1-2) Procalcitonin ng/mL Urine Color (Yellow) Urine Appearance (Clear) Urine pH (5.0-8.0) Ur Specific [place] (1.005-1.030) Urine Protein (Negative) Urine Glucose (UA) (Negative) Urine Ketones (Negative) Urine Occult Blood (Negative) Urine Nitrite (Negative) Urine Bilirubin (Negative) Urine Urobilinogen (0.2-1.0) Ur Leukocyte Esterase (Negative) U Hyaline Cast (Auto) (0-5) /lpf Urine RBC (0-5) /hpf Urine WBC (0-5) /hpf Ur Epithelial Cells (0-5) /hpf Urine Bacteria (FEW) /hpf Urine Mucus (FEW) /hpf SARS-CoV-2 RNA (MARISOL) Positive H (NEGATIVE) 03/06/21 03/06/21 03/07/21 Range/Units 12:40 15:15 05:55 WBC (4.23-9.07) K/mm3 RBC (4.63-6.08) M/mm3 Hgb (13.7-17.5) gm/dl Hct (40.1-51.0) % MCV (79.0-92.2) fl MCH (25.7-32.2) pg MCHC (32.2-35.5) g/dl RDW Std Deviation (35.1-43.9) fL Plt Count (163-337) K/mm3 MPV (9.4-12.3) fl Neut % (Auto) (34.0-67.9) % Lymph % (Auto) (21.8-53.1) % Johnson % (Auto) (5.3-12.2) % Eos % (Auto) (0.8-7.0) Baso % (Auto) (0.1-1.2) % Neut # (Auto) (1.78-5.38) K/mm3 Lymph # (Auto) (1.32-3.57) K/mm3 Johnson # (Auto) (0.30-0.82) K/mm3 Eos # (Auto) (0.04-0.54) K/mm3 Baso # (Auto) (0.01-0.08) K/mm3 Manual Slide Review PT (9.7-12.0) SECONDS INR APTT (21.7-31.4) SECONDS D-Dimer, Quantitative (0.19-0.50) mg/L ABG pH (7.35-7.45) ABG pCO2 (35.0-45.0) mmHg ABG pO2 (80.0-100.0) mmHg ABG HCO3 (22.0-26.0) meq/L ABG O2 Saturation (96.0-97.0) % ABG Base Excess (-2-2.0) Edmundo Test Sodium 144 (136-145) mEq/L Potassium 3.5 (3.5-5.1) mEq/L Chloride 109 H (98-107) mEq/L Carbon Dioxide 26 (21-32) mEq/L Anion Gap 12.5 (5-15) BUN 38 H (7-18) mg/dL Creatinine 1.6 H (0.7-1.3) mg/dL Est Cr Clr Drug Dosing TNP Estimated GFR (MDRD) 43 (>60) mL/min BUN/Creatinine Ratio 23.8 H (14-18) Glucose 148 H (70-99) mg/dL Lactic Acid 1.5 (0.4-2.0) mmol/L Calcium 8.9 (8.5-10.1) mg/dL Magnesium 3.1 H (1.8-2.4) mg/dL Ferritin (26-388) ng/ml Total Bilirubin 0.8 (0.2-1.0) mg/dL Direct Bilirubin (0.0-0.2) mg/dl Indirect Bilirubin AST 85 H (15-37) U/L ALT 74 H (16-63) U/L Alkaline Phosphatase 57 (46-116) U/L Troponin I < 0.017 (0.00-0.056) ng/mL C-Reactive Protein (<1.0) mg/dL NT-Pro-B Natriuret Pep (0-125) pg/mL Total Protein 6.9 (6.4-8.2) g/dl Albumin 2.4 L (3.4-5.0) g/dl Globulin 4.5 gm/dL Albumin/Globulin Ratio 0.5 L (1-2) Procalcitonin ng/mL Urine Color Dark yellow (Yellow) Urine Appearance Clear (Clear) Urine pH 6.0 (5.0-8.0) Ur Specific [place] 1.020 (1.005-1.030) Urine Protein 3+ H (Negative) Urine Glucose (UA) Trace H (Negative) Urine Ketones Trace H (Negative) Urine Occult Blood 3+ H (Negative) Urine Nitrite Negative (Negative) Urine Bilirubin 2+ H (Negative) Urine Urobilinogen 4.0 H (0.2-1.0) Ur Leukocyte Esterase Negative (Negative) U Hyaline Cast (Auto) 10-20 H (0-5) /lpf Urine RBC 50-75 H (0-5) /hpf Urine WBC 5-10 H (0-5) /hpf Ur Epithelial Cells 5-10 H (0-5) /hpf Urine Bacteria Moderate H (FEW) /hpf Urine Mucus Moderate H (FEW) /hpf SARS-CoV-2 RNA (MARISOL) (NEGATIVE) Meds: Medications Generic Name Dose Route Start Last Admin Trade Name Freq PRN Reason Stop Dose Admin Acetaminophen 650 mg 03/07/21 15:40 Acetaminophen 325 Mg Tab PO Q4H PRN Pain (Mild 1-3)/fever Hydrocodone Bitart/Acetaminophen 1 tab 03/07/21 15:40 Acetaminophen/Hydrocodone 325-5 Mg Tab PO Q4H PRN Pain (moderate 4-6) Albuterol 0 gm 03/07/21 16:00 03/10/21 05:24 Albuterol 6.7 Gm Inhaler INH Not Given Q6H KEAGAN Albuterol/Ipratropium 3 ml 03/07/21 16:45 03/10/21 05:40 Albuterol/Ipratropium 3.0-0.5 Mg/3 Ml Neb Soln NEB 3 ml Q4HRRT PRN Administration Shortness of Breath Apixaban 5 mg 03/06/21 21:00 03/09/21 20:51 Apixaban 5 Mg Tab PO Not Given BID KEAGAN Atorvastatin Calcium 20 mg 03/08/21 09:00 03/09/21 10:05 Atorvastatin 20 Mg Tab PO 20 mg DAILY KEAGAN Administration Baricitinib 2 mg 03/07/21 21:30 03/09/21 20:51 Baricitinib 2 Mg Tab PO 03/20/21 21:31 Not Given Q24H KEAGAN Dexamethasone 20 mg 03/09/21 09:00 03/09/21 10:10 Dexamethasone 10 Mg/Ml Sdv IVPUSH 03/14/21 23:59 20 mg DAILY KEAGAN Administration Dexamethasone 6 mg 03/15/21 09:00 Dexamethasone 4 Mg Tab PO DAILY KEAGAN Fluticasone Propionate 0 gm 03/09/21 09:00 03/09/21 10:26 Fluticasone Propionate Nasal [place] 16 Gm Bottle NASBOTH 2 sprays DAILY KEAGAN Administration Furosemide 40 mg 03/08/21 09:00 03/09/21 10:13 Furosemide 40 Mg Tab PO 40 mg DAILY KEAGAN Administration Azithromycin 500 mg/ Sodium 250 mls @ 250 mls/hr 03/06/21 15:30 03/09/21 15:54 Chloride IV 250 mls/hr Q24H KEAGAN Administration Remdesivir 100 mg/ Sodium 100 mls @ 100 mls/hr 03/07/21 17:15 03/09/21 18:00 Chloride IV 03/10/21 18:14 100 mls/hr Q24H KEAGAN Administration Ceftriaxone Sodium 2 gm/ 100 mls @ 200 mls/hr 03/07/21 17:00 03/09/21 17:10 Sodium Chloride IV 03/10/21 17:29 200 mls/hr Q24H KEAGAN Administration Lorazepam 1 - 2 mg 03/09/21 14:50 03/10/21 06:01 Lorazepam 2 Mg/Ml Sdv IVPUSH 2 mg Q1H PRN Administration Withdrawal Symptoms Protocol Ondansetron HCl 4 mg 03/07/21 15:40 Ondansetron 4 Mg/2 Ml Sdv IV Q6H PRN Nausea/Vomiting Pantoprazole Sodium 40 mg 03/07/21 16:00 03/10/21 05:38 Pantoprazole 40 Mg Tab.Cr PO Not Given BIDAC KEAGAN Sodium Chloride 10 ml 03/06/21 10:40 03/09/21 18:57 Sodium Chloride 0.9% 10 Ml Syringe FLUSH 30 ml ONETIME PRN Administration Keep Vein Open Trazodone HCl 50 mg 03/08/21 23:15 03/08/21 23:28 Trazodone 50 Mg Tab PO 50 mg BEDTIME PRN Administration Insomnia Discontinued Medications Generic Name Dose Route Start Last Admin Trade Name Freq PRN Reason Stop Dose Admin Aspirin 324 mg 03/06/21 12:45 03/06/21 13:01 Aspirin 81 Mg Tab.Chew PO 03/06/21 12:46 324 mg ONETIME ONE Administration Calcium Carbonate/Glycine 1,000 mg 03/07/21 09:37 03/07/21 09:53 Calcium Carbonate 500 Mg Tab.Chew PO 03/07/21 09:38 1,000 mg ONETIME ONE Administration Dexamethasone 6 mg 03/06/21 09:15 03/08/21 08:29 Dexamethasone 10 Mg/Ml Sdv IVPUSH 03/15/21 09:01 6 mg DAILY KEAGAN Administration Enoxaparin Sodium 40 mg 03/08/21 09:00 Enoxaparin 40 Mg/0.4 Ml Syringe SUBCUT DAILY KEAGAN Enoxaparin Sodium 90 mg 03/08/21 13:45 03/08/21 14:20 Enoxaparin 100 Mg/1 Ml Syringe SUBCUT 03/08/21 13:46 90 mg ONETIME ONE Administration Sodium Chloride 1,000 mls @ 250 mls/hr 03/06/21 09:51 03/06/21 09:55 Normal Saline IV 03/06/21 13:50 250 mls/hr ONETIME ONE Administration Ceftriaxone Sodium 1 gm/ 100 mls @ 200 mls/hr 03/06/21 10:35 03/06/21 10:44 Sodium Chloride IV 03/06/21 11:04 200 mls/hr ONETIME ONE Administration Sodium Chloride 100 mls @ 60 mls/hr 03/06/21 10:45 03/06/21 11:10 Normal Saline IV 60 mls/hr ASDIRECTED KEAGAN Administration Sodium Chloride 1,000 mls @ 150 mls/hr 03/06/21 13:15 03/06/21 14:48 Normal Saline IV 150 mls/hr ASDIRECTED KEAGAN Administration Remdesivir 200 mg/ Sodium 250 mls @ 250 mls/hr 03/06/21 15:19 03/06/21 16:56 Chloride IV 03/06/21 16:18 250 mls/hr ONETIME ONE Administration Iopamidol 100 ml 03/06/21 10:40 03/06/21 11:09 Iopamidol 755 Mg/Ml 100 Ml Bottle IVPUSH 03/06/21 10:41 100 ml ONETIME ONE Administration Lorazepam 1 mg 03/09/21 01:14 03/09/21 01:37 Lorazepam 2 Mg/Ml Sdv IVPUSH 1 mg Q6H PRN Administration Anxiety Protocol Lorazepam Confirm 03/09/21 01:25 03/09/21 02:20 Lorazepam 2 Mg/Ml Sdv Administered 03/09/21 01:26 Not Given Dose 2 mg .ROUTE .STK-MED ONE Lorazepam 1 - 3 mg 03/09/21 02:55 Lorazepam 2 Mg/Ml Sdv IVPUSH Q1H PRN Anxiety Protocol Lorazepam 1 - 3 mg 03/09/21 02:56 03/09/21 13:55 Lorazepam 2 Mg/Ml Sdv IVPUSH 1 mg Q1H PRN Administration Anxiety Protocol - Re-Assessments/Exams Free Text/Narrative Re-Assessment/Exam: 03/06/21 10:04 Radiologist impression frontal view of the chest: 1. Diffuse increased density in both sides of the chest is an interval change from prior exam. Findings could represent pulmonary vascular congestion but please make sure the patient has no symptoms of Covid pneumonia as an etiology 03/06/21 10:05 Nursing staff notifies me that the patient's lactic acid level is 3.0. I have ordered for the patient to receive normal saline 250 mL an hour. We will repeat a lactic acid level 3 hours from initial draw. 03/06/21 10:32 Patient is telling nursing staff that he wants to leave the hospital. I did discuss with the patient the fact that if he left the likelihood of him dying was quite high. Patient is now agreeable to staying. 03/06/21 11:29 Hematology reveals a WBC of 12.82, hemoglobin 18.4, hematocrit 54.2, platelet count 190 PT 11.6, INR 1.05, D-dimer 5.42 ABGs reveal a pH of 7.29, PCO2 38.2, PO2 123, bicarb 17.7, O2 sat 90.2 on a nonrebreather mask Chemistry reveals a sodium 143, potassium 4.0, carbon dioxide 25, anion gap 18.0, BUN 33, creatinine 2.0, glucose 160, lactic acid 3.0, magnesium 3.1, ferritin 1376, total bilirubin 1.7, direct bilirubin 0.70, indirect bilirubin 1.00, AST 112, ALT 76, alk phos 60, troponin 0 0.102, C-reactive protein 23.3, proBNP 974 Patient is Covid positive I have ordered for the patient to receive a gram Rocephin due to the elevated white count and lactic acid levels however, this could also be 2 to dehydration. Patient's liver enzymes likely elevated due to Covid. We will also order a CTA of the lungs to rule out PE as patient was hypoxic and slightly tachycardic at the time of triage. Cardiac enzymes are elevated due to recent cardiac event versus Covid. Will discuss the case with cardiology once we have the results of the CTA of the lungs. 03/06/21 11:[address] of the chest: 1. No findings of pulmonary embolism. 2. Slightly prominent lymph nodes most likely residual from the patient's parenchymal process. 3. Diffuse parenchymal densities within both sides of the chest which are stable from prior chest CT. 4. Small to moderate sized hiatal hernia. 03/06/21 12:06 I do feel this patient needs to be hospitalized. We have no beds available at this hospital. With the patient's elevated troponin levels he likely needs cardiology as well. I have spoke to [facility] in [place] and they are on complete diversion. I then phoned [facility] in [place] and they state they are on diversion as well. However, they will be calling me back if a bed becomes available. I will call the [place] transfer center. 03/06/21 12:46 I have ordered for the patient received 4 baby aspirin due to the elevated troponin levels. 03/06/21 13:00 Patient's repeat lactic acid level is 2.5. I did discuss the case with Dr. Bryson, will give the patient a 500 mL of normal saline to run at 150 an hour. Will repeat his lactic acid level at 1500. Repeat troponin level 0.105. 03/06/21 15:21 It is unknown how long the patient will remain in the emergency department. I have ordered for him to receive remdesivir 200 mg IV now he will also receive Zithromax 500 mg IV now. 03/06/21 15:56 Repeat lactic acid level is 1.5. Will discontinue IV fluids. 03/06/21 17:14 I am going off shift I have given report to Mabel Azevedo NP.
[2021-03-06] MEDS ORDERED: Sodium Chloride 0.9% 1,000 ML IV ONE (09:51)
--- NOTE | 2021-03-06 09:58 | CR ---
Chest: Frontal view of the chest was obtained. Comparison: Prior chest x-ray of 02/25/21. Diffuse increased density is seen throughout both sides of the chest. This is an interval change from prior exam. Heart size and mediastinum are unchanged. Bony structures also are unchanged. Impression: 1. Diffuse increased density in both sides of the chest as an interval change from prior exam. Findings could represent pulmonary vascular congestion but please make sure patient has no symptoms of COVID pneumonia as the etiology. Diagnostic code #3
[2021-03-06] MEDS ORDERED: cefTRIAXone 1 GM in Sodium Chloride 0.9% 100 ML IV ONE (10:35)
[2021-03-06] MEDS ORDERED: Iopamidol 755 Mg/ML 100 ML Bottle IVPUSH ONE (10:40)
[2021-03-06] MEDS ORDERED: Sodium Chloride 0.9% 100 ML IV SCH (10:45)
[2021-03-06] MEDS: Sodium Chloride 0.9% 10 ML Syringe FLUSH PRN ×2 (10:58→11:09)
--- NOTE | 2021-03-06 11:44 | CT ---
CT chest Technique: Multiple axial sections through the chest were obtained. Intravenous contrast was utilized. Study has been performed as a pulmonary angiogram protocol. Comparison: Prior chest CT of 04/02/16 and prior chest x-ray performed on 03/06/21 (9:00 AM). Findings: Thoracic aorta shows slight atherosclerotic change. No aneurysm is seen. Pulmonary arteries are well opacified. No filling defects are seen to indicate pulmonary embolism. Mild areas of lymph nodes are seen within the mediastinum and within the right hilar region. No pericardial thickening is seen. Heart is slightly enlarged. Small to moderate size hiatal hernia is seen. Other visualized abdominal structures show nothing acute. Diffuse parenchymal densities are noted throughout both sides of the chest. Findings are fairly stable from prior chest x-ray. Bone window settings were reviewed which show minimal degenerative change scattered within the spine. No acute osseous abnormality is appreciated. Impression: 1. No findings of pulmonary embolism. 2. Slightly prominent lymph nodes most likely residual from patient's parenchymal process. 3. Diffuse parenchymal densities within both sides of the chest which are stable from prior chest CT. 4. Small to moderate sized hiatal hernia. Diagnostic code #3
[2021-03-06] MEDS ORDERED: Aspirin 81 MG Tab.Chew PO ONE (12:45)
[2021-03-06] MEDS ORDERED: Sodium Chloride 0.9% 1,000 ML IV SCH (13:15)
[2021-03-06] MEDS ORDERED: REMDESIVIR 200 MG in Sodium Chloride 0.9% 250 ML IV ONE (15:19)
[2021-03-06] MEDS: Azithromycin 500 MG in Sodium Chloride 0.9% 250 ML IV SCH (16:56)
[2021-03-06] MEDS: Apixaban 5 MG Tab PO SCH (21:46)
[2021-03-07] MEDS: Dexamethasone 10 MG/ML SDV IVPUSH SCH (09:17)
[2021-03-07] MEDS: Apixaban 5 MG Tab PO SCH ×3 (09:17→21:29)
[2021-03-07] MEDS ORDERED: Calcium Carbonate 500 MG Tab.Chew PO ONE (09:37)
[2021-03-07] MEDS ORDERED: Acetaminophen 325 MG Tab PO PRN (15:40)
[2021-03-07] MEDS ORDERED: Acetaminophen/HYDROcodone 325-5 MG Tab PO PRN (15:40)
[2021-03-07] MEDS ORDERED: Ondansetron 4 MG/2 ML SDV IV PRN (15:40)
[2021-03-07] MEDS: Albuterol 6.7 GM Inhaler INH SCH ×2 (16:07→21:22)
--- NOTE | 2021-03-07 16:49 | PCM.HP.2 ---
H&P History of Present Illness - General Date of Service: 03/07/21 Admit Problem/Dx: Admission Diagnosis/Problem Admission Diagnosis/Problem Pneumonia - History of Present Illness Initial Comments - Free Text/Narative: 65-year-old male unvaccinated for COVID-19 presented to the emergency department for the second time on 03/06/2021. He was seen initially on 02/25/2021. On that admission he complained of a cough, low-grade fever, chills that were off and on for 3 days. Unfortunately patient is a very poor historian so history was obtained through the emergency department notes mainly. During the 02/25/2021 visit the physician asked to do a COVID-19 swab and the patient refused due to "cancer risk from the swab." During that visit the chest x-ray was normal and he was sent home. Patient returned yesterday and found to be severely hypoxemic with oxygen saturations in the 70s on room air. Also patient was severely dyspneic and unable to speak more than 1 or 2 words in a sentence. Patient does have a history of right-sided DVT x2 or 3 and he is on Eliquis. Most recent clot appears to be 2 years ago. He also has a history of hypertension, hyperlipidemia, and GERD. He is taking furosemide, which is likely due to edema in the right leg, but not sure why. Patient stopped smoking in 1989 and stopped drinking over a month ago. Patient was kept overnight in the emergency department because of no beds available on inpatient [facility]. He was placed on high flow nasal cannula and is currently on 60 L and 85% with oxygen saturations in the mid 80s. Patient was also started on remdesivir, dexamethasone, ceftriaxone, and azithromycin. - Related Data Allergies/Adverse Reactions: Allergies Allergy/AdvReac Type Severity Reaction Status Date / Time bee pollen Allergy Unknown Cannot Verified 03/07/21 13:19 Remember Home Medications: Home Meds Omeprazole 20 mg PO BID 06/07/15 [History] atorvaSTATin [Lipitor] 20 mg PO DAILY 03/21/16 [History] Furosemide 40 mg PO DAILY 06/04/16 [History] Apixaban [Eliquis] 5 mg PO BID 08/25/18 [History] Cholecalciferol (Vitamin D3) [Vitamin D] 50 mcg PO DAILY 08/25/18 [History] Albuterol [Proventil HFA] 2 puff INH Q6HR 12/22/19 [History] Fluticasone Propionate [24 Hour Allergy] 2 spray NASBOTH DAILY 12/22/19 [History] Lutein/Minerals/Vit A,C & E [Ocuvite] 1 tab PO DAILY 03/07/21 [History] Past Medical History HEENT History: Reports: Impaired Vision, Sinusitis Cardiovascular History: Reports: Blood Clots/VTE/DVT, Hypertension, SOB on Exertion, Other (See Below) Other Cardiovascular History: edema, swelling Respiratory History: Reports: COPD, Sleep Apnea, SOB, Other (See Below) Other Respiratory History: wears CPAP at night Gastrointestinal History: Reports: GERD, Hiatal Hernia Genitourinary History: Reports: None Musculoskeletal History: Reports: Back Pain, Chronic, Neck Pain, Chronic, Osteoarthritis Neurological History: Reports: Headaches, Chronic Psychiatric History: Reports: Addiction, Other (See Below) Other Psychiatric History: pt. states that he does have anger issues, but he tries to manage it. Endocrine/Metabolic History: Reports: Obesity/BMI 30+ Hematologic History: Reports: Anticoagulation Therapy - Infectious Disease History Infectious Disease History: Reports: Novel Coronavirus - Past Surgical History HEENT Surgical History: Reports: Adenoidectomy, Naso-Sinus Surgery, Oral Surgery, Tonsillectomy, Other (See Below) Cardiovascular Surgical History: Reports: None GI Surgical History: Reports: Colonoscopy, Hernia, Abdominal, Hernia Repair/Other Neurological Surgical History: Reports: None Musculoskeletal Surgical History: Reports: Arthroscopic Knee, Other (See Below) Other Musculoskeletal Surgeries/Procedures:: ulnar transposition; left knee surgery Social & Family History - Family History Family Medical History: No Pertinent Family History - Tobacco Use Tobacco Use Status *Q: Former Tobacco User Used Tobacco, but Quit: Yes Month/Year Tobacco Last Used: 1989 Second Hand Smoke Exposure: No - Caffeine Use Caffeine Use: Reports: Coffee - Alcohol Use Days Per Week of Alcohol Use: 7 Number of Drinks Per Day: 3 Total Drinks Per Week: 21 - Recreational Drug Use Recreational Drug Use: No H&P Review of Systems - Review of Systems: Review Of Systems: Comprehensive ROS is negative, except as noted in HPI. Exam - Exam Exam: See Below - Vital Signs Vital Signs: Last Vital Signs Temp 98.2 F 03/07/21 14:26 Pulse 87 03/07/21 14:26 Resp 24 H 03/07/21 14:26 BP 123/76 03/07/21 14:26 Pulse Ox 95 03/07/21 16:08 Weight: 200 lb - Exam Quality Assessment: Supplemental Oxygen General: Alert, Oriented, Other (Poor historian) HEENT: Conjunctiva Clear, Mucosa Moist & [place] Neck: Supple Lungs: Crackles (Bibasilar crackles). No: Normal Respiratory Effort (Increased rate) Cardiovascular: Regular Rate, Regular Rhythm GI/Abdominal Exam: Normal Bowel Sounds, Soft, Non-Tender, No Organomegaly, No Distention, No Abnormal Bruit, No Mass Back Exam: Normal Inspection Extremities: Normal Inspection, Normal Range of Motion, Non-Tender, No Pedal Edema, Normal Capillary Refill Skin: Warm, Dry, Intact Neuro Extensive - Mental Status: Alert, Oriented x3, Normal Mood/Affect, Normal Cognition, Memory Intact Neuro Extensive - Motor, Sensory, Reflexes: CN II-XII Intact Psychiatric: Alert, Normal Affect, Normal Mood - Patient Data Lab Results Last 24 hrs: Laboratory Results - last 24 hr 03/06/21 03/07/21 Range/Units 09:10 05:55 Sodium 144 (136-145) mEq/L Potassium 3.5 (3.5-5.1) mEq/L Chloride 109 H (98-107) mEq/L Carbon Dioxide 26 (21-32) mEq/L Anion Gap 12.5 (5-15) BUN 38 H (7-18) mg/dL Creatinine 1.6 H (0.7-1.3) mg/dL Est Cr Clr Drug Dosing TNP Estimated GFR (MDRD) 43 (>60) mL/min BUN/Creatinine Ratio 23.8 H (14-18) Glucose 148 H (70-99) mg/dL Calcium 8.9 (8.5-10.1) mg/dL Magnesium 3.1 H (1.8-2.4) mg/dL Total Bilirubin 0.8 (0.2-1.0) mg/dL AST 85 H (15-37) U/L ALT 74 H (16-63) U/L Alkaline Phosphatase 57 (46-116) U/L Troponin I < 0.017 (0.00-0.056) ng/mL Total Protein 6.9 (6.4-8.2) g/dl Albumin 2.4 L (3.4-5.0) g/dl Globulin 4.5 gm/dL Albumin/Globulin Ratio 0.5 L (1-2) Procalcitonin 0.43 H ng/mL Result Diagrams: 03/06/21 09:10 03/07/21 05:55 Sepsis Event Note - Evaluation Sepsis Screening Result: No Definite Risk - Focused Exam Vital Signs: Vital Signs Temp Temp Pulse Pulse Resp BP BP 03/07/21 16:08 03/07/21 14:30 03/07/21 14:26 98.2 F 87 24 H 123/76 03/07/21 11:45 100.0 F 96 24 H 124/82 03/07/21 09:54 98.0 F 72 20 161/93 H 03/07/21 05:51 78 Pulse Ox Pulse Ox 03/07/21 16:08 95 03/07/21 14:30 91 L 03/07/21 14:26 03/07/21 11:45 94 L 03/07/21 09:54 92 L 03/07/21 05:51 92 L - Problem List (1) Hypoxia SNOMED Code(s): 253866380 ICD Code: R09.02 - HYPOXEMIA Status: Acute Current Visit: Yes (2) Pneumonia due to COVID-19 virus SNOMED Code(s): 585272218504645484 ICD Code: U07.1 - COVID-19; J12.82 - PNEUMONIA DUE TO CORONAVIRUS DISEASE 2019 Status: Acute Current Visit: Yes (3) Deep vein thrombosis, lower right extremity SNOMED Code(s): 162116889 ICD Code: I82.401 - ACUTE EMBOLISM AND THOMBOS UNSP DEEP VEINS OF R LOW EXTREM Status: Acute Current Visit: No Qualifiers: Affected thrombotic vein of extremity: popliteal Chronicity: acute Qualified Code(s): I82.431 - Acute embolism and thrombosis of right popliteal vein Problem List Initiated/Reviewed/Updated: Yes Orders Last 24hrs: Active Orders 24 hr Category Date Time Status Admission Status [Patient Status] [ADT] Routine ADT 03/07/21 10:11 Active Oxygen Therapy [RC] PRN Care 03/07/21 15:40 Ordered RT Aerosol Therapy [RC] ASDIRECTED Care 03/07/21 16:45 Ordered RT Incentive Spirometry [RC] ASDIRECTED Care 03/07/21 15:40 Ordered RT Post Treatment Assessment [RC] Click to Edit Care 03/07/21 15:44 Ordered RT Pre-Treatment Assessment [RC] Click to Edit Care 03/07/21 15:44 Ordered Up With Assistance [RC] ASDIRECTED Care 03/07/21 15:40 Ordered VTE/DVT Education [RC] PER UNIT ROUTINE Care 03/07/21 15:40 Ordered Vital Signs [RC] Q4H Care 03/07/21 15:40 Ordered Respiratory Care Assess and Treatment [CONS] Routine Cons 03/07/21 15:40 Ordered Regular Diet [DIET] Diet 03/07/21 Dinner Active CBC WITH AUTO DIFF [HEME] AM Lab 03/08/21 05:11 Ordered COMPREHENSIVE METABOLIC PN,CMP [CHEM] DAILY Lab 03/08/21 05:11 Ordered COMPREHENSIVE METABOLIC PN,CMP [CHEM] DAILY Lab 03/09/21 05:11 Ordered COMPREHENSIVE METABOLIC PN,CMP [CHEM] DAILY Lab 03/10/21 05:11 Ordered CRP [C-REACTIVE PROTEIN] [CHEM] Q48H Lab 03/08/21 05:11 Ordered CRP [C-REACTIVE PROTEIN] [CHEM] Q48H Lab 03/10/21 05:11 Ordered D-DIMER QUANTITATIVE [COAG] Q48H Lab 03/08/21 05:11 Ordered D-DIMER QUANTITATIVE [COAG] Q48H Lab 03/10/21 05:11 Ordered MAGNESIUM [CHEM] DAILY Lab 03/08/21 05:11 Ordered MAGNESIUM [CHEM] DAILY Lab 03/09/21 05:11 Ordered MAGNESIUM [CHEM] DAILY Lab 03/10/21 05:11 Ordered PHOSPHORUS [CHEM] AM Lab 03/08/21 05:11 Ordered Acetaminophen [TylenoL] Med 03/07/21 15:40 Active 650 mg PO Q4H PRN Acetaminophen/HYDROcodone [[place] 325-5 MG] Med 03/07/21 15:40 Active 1 tab PO Q4H PRN Albuterol [Proventil HFA] Med 03/07/21 16:00 Active 0 gm INH Q6H Albuterol/Ipratropium [DuoNeb 3.0-0.5 MG/3 ML] Med 03/07/21 16:45 Ordered 3 ml NEB Q4HRRT PRN Apixaban [Eliquis] Med 03/06/21 21:00 Active 5 mg PO BID Ondansetron [Zofran] Med 03/07/21 15:40 Active 4 mg IV Q6H PRN Pantoprazole [ProTONIX] Med 03/07/21 16:00 Active 40 mg PO BIDAC Remdesivir 100 mg Med 03/07/21 17:15 Active Sodium Chloride 0.9% [Normal Saline] 100 ml IV Q24H atorvaSTATin [Lipitor] Med 03/08/21 09:00 Active 20 mg PO DAILY cefTRIAXone [Rocephin] 2 gm Med 03/07/21 17:00 Ordered Sodium Chloride 0.9% [Normal Saline] 100 ml IV Q24H RT Oxygen High Flow [RESPCARE] Routine Oth 03/06/21 20:59 Active Resuscitation Status Routine Resus Stat 03/07/21 15:40 Ordered Medication Orders Acetaminophen (Acetaminophen 325 Mg Tab) 650 mg PO Q4H PRN PRN Reason: Pain (Mild 1-3)/fever Hydrocodone Bitart/Acetaminophen (Acetaminophen/Hydrocodone 325-5 Mg Tab) 1 tab PO Q4H PRN PRN Reason: Pain (moderate 4-6) Albuterol (Albuterol 6.7 Gm Inhaler) 0 gm INH Q6H [facility] Last Admin: 03/07/21 16:07 Dose: 2 puff Documented by: PRAULES Albuterol/Ipratropium (Albuterol/Ipratropium 3.0-0.5 Mg/3 Ml Neb Soln) 3 ml NEB Q4HRRT PRN PRN Reason: Shortness of Breath Apixaban (Apixaban 5 Mg Tab) 5 mg PO BID [facility] Last Admin: 03/07/21 09:17 Dose: 5 mg Documented by: Admin: 03/06/21 21:46 Dose: 5 mg Documented by: DARIEN Atorvastatin Calcium (Atorvastatin 20 Mg Tab) 20 mg PO DAILY [facility] Dexamethasone (Dexamethasone 10 Mg/Ml Sdv) 6 mg IVPUSH DAILY [facility] Stop: 03/15/21 09:01 Last Admin: 03/07/21 09:17 Dose: 6 mg Documented by: Admin: 03/06/21 09:29 Dose: 6 mg Documented by: SURJIT Azithromycin 500 mg/ Sodium (Chloride) 250 mls @ 250 mls/hr IV Q24H [facility] Last Admin: 03/06/21 16:56 Dose: 250 mls/hr Documented by: SURJIT Remdesivir 100 mg/ Sodium (Chloride) 100 mls @ 100 mls/hr IV Q24H [facility] Stop: 03/10/21 18:14 Ceftriaxone Sodium 2 gm/ (Sodium Chloride) 100 mls @ 200 mls/hr IV Q24H [facility] Stop: 03/10/21 17:29 Ondansetron HCl (Ondansetron 4 Mg/2 Ml Sdv) 4 mg IV Q6H PRN PRN Reason: Nausea/Vomiting Pantoprazole Sodium (Pantoprazole 40 Mg Tab.Cr) 40 mg PO BIDAC [facility] Sodium Chloride (Sodium Chloride 0.9% 10 Ml Syringe) 10 ml FLUSH ONETIME PRN PRN Reason: Keep Vein Open Last Admin: 03/06/21 11:09 Dose: 10 ml Documented by: Admin: 03/06/21 10:58 Dose: 10 ml Documented by: SURJIT Assessment/Plan Comment:: 65-year-old male with COVID-19 pneumonia and history of DVT COVID-19 pneumonia Respiratory failure * Patient seen yesterday and put on high flow nasal cannula * CT angiogram which showed slightly prominent lymph nodes most likely residual from patient's parenchymal process. Diffuse parenchymal densities within both sides of the chest stable from prior chest x-ray. No findings of pulmonary embolus. * Initial elevation in troponin resolved and likely secondary to increased cardiac output * Initial CRP significantly elevated at 23 * Initially high lactic acid of 2.5 resolved to 1.5 with fluids and oxygenation * Currently on remdesivir, dexamethasone, Rocephin, and azithromycin. History of DVT in the right leg, anticoagulated with Eliquis * Currently taking Eliquis 5 mg twice daily * DVT occurred in the right leg at least 2 times possibly 3. * Last occurrence was 2 years ago. * This places him at a high risk for recurrent VTE considering Covid increases thrombosis * On Lasix 40 mg every morning, presumably for dependent edema Hypertension/hyperlipidemia Plan * Admit to medical floor * FiO2 to keep SPO2 above 87%. Currently on high flow nasal cannula * I-S, prone positioning, RT, and Covid specific routine care * Albuterol, duo nebs as needed * Continue remdesivir, dexamethasone, Rocephin, and azithromycin * Consider baricitinib or Actemra, will discuss with patient and give him the emergency use authorization handout. * Follow CBC, CMP, mag, and C-reactive protein. * Reconcile home meds and continue as appropriate * VTE prophylaxis with Eliquis * CODE STATUS: DNR/DNI * Prognosis is fair to poor. On high flow nasal cannula with risk factors of obesity and hypertension. - Mortality Measure Prognosis:: Poor
[2021-03-07] MEDS: Azithromycin 500 MG in Sodium Chloride 0.9% 250 ML IV SCH ×2 (16:53→18:26)
[2021-03-07] MEDS: Pantoprazole 40 MG Tab.CR PO SCH (16:53)
[2021-03-07] MEDS: REMDESIVIR 100 MG in Sodium Chloride 0.9% 100 ML IV SCH (19:53)
[2021-03-07] MEDS: cefTRIAXone 2 GM in Sodium Chloride 0.9% 100 ML IV SCH (20:50)
[2021-03-07] MEDS ORDERED: Apixaban 5 MG Tab PO SCH (21:00)
--- NOTE | 2021-03-07 21:20 | PCM.SN.2 ---
- Free Text/Narrative Note: I spoke with patient to provide information about baricitinib. I offered the "fax sheet for patients and parents/caregivers, for baricitinib" to read and review. I stated that therapy has been approved by an emergency use authorization process and has not fully been FDA reviewed or approved. I shared potential risks from the therapy including increased risk for serious infections, anaphylaxis, and reaction to medication. I discussed there are other potential treatment options that are currently not FDA approved to treat COVID-19. Offered opportunity to ask questions and all questions were answered. Patient voiced understanding and agreed to proceed with treatment. Time Documentation
[2021-03-08] MEDS: Albuterol 6.7 GM Inhaler INH SCH ×4 (04:06→21:37)
[2021-03-08] MEDS: Pantoprazole 40 MG Tab.CR PO SCH ×2 (06:21→15:24)
[2021-03-08] MEDS: Furosemide 40 MG Tab PO SCH (08:28)
[2021-03-08] MEDS: atorvaSTATin 20 MG Tab PO SCH (08:28)
[2021-03-08] MEDS: Apixaban 5 MG Tab PO SCH ×2 (08:28→21:44)
[2021-03-08] MEDS: Dexamethasone 10 MG/ML SDV IVPUSH SCH (08:29)
[2021-03-08] MEDS ORDERED: Enoxaparin 40 MG/0.4 ML Syringe SUBCUT SCH (09:00)
--- NOTE | 2021-03-08 11:50 | US ---
Right lower extremity deep venous ultrasound: Duplex and color Doppler evaluation were obtained of the right common femoral, proximal greater saphenous, superficial femoral, popliteal, posterior tibial and peroneal veins. Left common femoral vein was also evaluated. Comparison: Prior right lower extremity deep venous ultrasound of 12/22/19. Findings: Acute deep venous thrombosis is identified within the distal superficial femoral vein and popliteal vein. Other veins show no additional deep venous thrombosis. Impression: 1. Deep venous thrombosis within the distal right superficial femoral or popliteal vein. 2. Other portions of the study appear within normal limits. Diagnostic code #5
--- NOTE | 2021-03-08 13:15 | PCM.PN ---
- General Info Date of Service: 03/08/21 Admission Dx/Problem (Free Text): Admission Diagnosis/Problem Admission Diagnosis/Problem Pneumonia Subjective Update: 65-year-old male unvaccinated for COVID-19 presented to the emergency department for the second time on 03/06/2021. He was seen initially on 02/25/2021 with symptoms including cough, low-grade fever, chills x 3 days. Today patient does not have any new complaints. Denies headache, dizziness, chest pain, abdominal pain, nausea, vomiting, or diarrhea. She is all 6 L with FiO2 90% His D-dimer 19.69 today but it was 5.42 yesterday. Ultrasound Doppler was ordered, showing DVT within the distal right superficial femoral or popliteal vein. Patient has been on Eliquis 5 mg twice daily. I do not think this a case of treatment failure with Eliquis because I was reported that 1 dose was missed yesterday. I would like to continue Eliquis and add Lovenox 90 mg oral once. - Review of Systems General: Reports: No Symptoms HEENT: Reports: No Symptoms Pulmonary: Reports: Shortness of Breath Cardiovascular: Reports: No Symptoms Gastrointestinal: Reports: No Symptoms Genitourinary: Reports: No Symptoms Musculoskeletal: Reports: No Symptoms Skin: Reports: No Symptoms Neurological: Reports: No Symptoms Psychiatric: Reports: No Symptoms - Patient Data Vitals - Most Recent: Last Vital Signs Temp 36.5 C 03/08/21 12:00 Pulse 75 03/08/21 08:24 Resp 25 H 03/08/21 12:00 BP 113/70 03/08/21 12:00 Pulse Ox 90 L 03/08/21 11:53 Weight - Most Recent: 90.764 kg I&O - Last 24 Hours: Intake & Output 03/07/21 03/08/21 03/08/21 22:59 06:59 14:59 Intake Total 1000 Output Total 200 100 Balance 800 -100 Lab Results Last 24 Hours: Laboratory Results - last 24 hr 03/08/21 03/08/21 03/08/21 Range/Units 05:44 05:44 05:44 WBC 10.50 H (4.23-9.07) K/mm3 RBC 4.77 (4.63-6.08) M/mm3 Hgb 14.7 D (13.7-17.5) gm/dl Hct 43.7 (40.1-51.0) % MCV 91.6 (79.0-92.2) fl MCH 30.8 (25.7-32.2) pg MCHC 33.6 (32.2-35.5) g/dl RDW Std Deviation 45.2 H (35.1-43.9) fL Plt Count 184 (163-337) K/mm3 MPV 10.3 (9.4-12.3) fl Neut % (Auto) 87.9 H (34.0-67.9) % Lymph % (Auto) 8.6 L (21.8-53.1) % Toole % (Auto) 3.0 L (5.3-12.2) % Eos % (Auto) 0 L (0.8-7.0) Baso % (Auto) 0.0 L (0.1-1.2) % Neut # (Auto) 9.24 H (1.78-5.38) K/mm3 Lymph # (Auto) 0.90 L (1.32-3.57) K/mm3 [place] # (Auto) 0.31 (0.30-0.82) K/mm3 Eos # (Auto) 0.00 L (0.04-0.54) K/mm3 Baso # (Auto) 0.00 L (0.01-0.08) K/mm3 Manual Slide Review Normal smear D-Dimer, Quantitative 19.69 H (0.19-0.50) mg/L Sodium 147 H (136-145) mEq/L Potassium 3.5 (3.5-5.1) mEq/L Chloride 110 H (98-107) mEq/L Carbon Dioxide 27 (21-32) mEq/L Anion Gap 13.5 (5-15) BUN 34 H (7-18) mg/dL Creatinine 1.3 (0.7-1.3) mg/dL Est Cr Clr Drug Dosing 53.35 mL/min Estimated GFR (MDRD) 55 (>60) mL/min BUN/Creatinine Ratio 26.2 H (14-18) Glucose 155 H (70-99) mg/dL Calcium 8.5 (8.5-10.1) mg/dL Phosphorus 3.9 (2.6-4.7) mg/dL Magnesium 2.6 H (1.8-2.4) mg/dL Total Bilirubin 0.7 (0.2-1.0) mg/dL AST 58 H (15-37) U/L ALT 61 (16-63) U/L Alkaline Phosphatase 59 (46-116) U/L C-Reactive Protein 11.5 H* (<1.0) mg/dL Total Protein 5.4 L (6.4-8.2) g/dl Albumin 2.2 L (3.4-5.0) g/dl Globulin 3.2 gm/dL Albumin/Globulin Ratio 0.7 L (1-2) Giovanni Results Last 24 Hours: Microbiology 03/06/21 09:43 Blood Culture - Preliminary Blood - Venous 03/06/21 09:35 Blood Culture - Preliminary Blood Med Orders - Current: Current Medications Acetaminophen (Acetaminophen 325 Mg Tab) 650 mg PO Q4H PRN PRN Reason: Pain (Mild 1-3)/fever Hydrocodone Bitart/Acetaminophen (Acetaminophen/Hydrocodone 325-5 Mg Tab) 1 tab PO Q4H PRN PRN Reason: Pain (moderate 4-6) Albuterol (Albuterol 6.7 Gm Inhaler) 0 gm INH Q6H [facility] Last Admin: 03/08/21 09:47 Dose: 2 puff Documented by: Albuterol/Ipratropium (Albuterol/Ipratropium 3.0-0.5 Mg/3 Ml Neb Soln) 3 ml NEB Q4HRRT PRN PRN Reason: Shortness of Breath Apixaban (Apixaban 5 Mg Tab) 5 mg PO BID [facility] Last Admin: 03/08/21 08:28 Dose: 5 mg Documented by: Atorvastatin Calcium (Atorvastatin 20 Mg Tab) 20 mg PO DAILY [facility] Last Admin: 03/08/21 08:28 Dose: 20 mg Documented by: Baricitinib (Baricitinib 2 Mg Tab) 2 mg PO Q24H [facility] Stop: 03/20/21 21:31 Last Admin: 03/07/21 21:37 Dose: 2 mg Documented by: Dexamethasone (Dexamethasone 10 Mg/Ml Sdv) 20 mg IVPUSH DAILY [facility] Stop: 03/14/21 23:59 Dexamethasone (Dexamethasone 4 Mg Tab) 6 mg PO DAILY [facility] Furosemide (Furosemide 40 Mg Tab) 40 mg PO DAILY [facility] Last Admin: 03/08/21 08:28 Dose: 40 mg Documented by: Azithromycin 500 mg/ Sodium (Chloride) 250 mls @ 250 mls/hr IV Q24H [facility] Last Admin: 03/07/21 18:26 Dose: 250 mls/hr Documented by: Remdesivir 100 mg/ Sodium (Chloride) 100 mls @ 100 mls/hr IV Q24H [facility] Stop: 03/10/21 18:14 Last Admin: 03/07/21 19:53 Dose: 100 mls/hr Documented by: Ceftriaxone Sodium 2 gm/ (Sodium Chloride) 100 mls @ 200 mls/hr IV Q24H [facility] Stop: 03/10/21 17:29 Last Admin: 03/07/21 20:50 Dose: 200 mls/hr Documented by: Ondansetron HCl (Ondansetron 4 Mg/2 Ml Sdv) 4 mg IV Q6H PRN PRN Reason: Nausea/Vomiting Pantoprazole Sodium (Pantoprazole 40 Mg Tab.Cr) 40 mg PO BIDAC [facility] Last Admin: 03/08/21 06:21 Dose: Not Given Documented by: Sodium Chloride (Sodium Chloride 0.9% 10 Ml Syringe) 10 ml FLUSH ONETIME PRN PRN Reason: Keep Vein Open Last Admin: 03/06/21 11:09 Dose: 10 ml Documented by: Discontinued Medications Aspirin (Aspirin 81 Mg Tab.Chew) 324 mg PO ONETIME ONE Stop: 03/06/21 12:46 Last Admin: 03/06/21 13:01 Dose: 324 mg Documented by: Calcium Carbonate/Glycine (Calcium Carbonate 500 Mg Tab.Chew) 1,000 mg PO ONETIME ONE Stop: 03/07/21 09:38 Last Admin: 03/07/21 09:53 Dose: 1,000 mg Documented by: Dexamethasone (Dexamethasone 10 Mg/Ml Sdv) 6 mg IVPUSH DAILY [facility] Stop: 03/15/21 09:01 Last Admin: 03/08/21 08:29 Dose: 6 mg Documented by: Enoxaparin Sodium (Enoxaparin 40 Mg/0.4 Ml Syringe) 40 mg SUBCUT DAILY [facility] Sodium Chloride (Normal Saline) 1,000 mls @ 250 mls/hr IV ONETIME ONE Stop: 03/06/21 13:50 Last Admin: 03/06/21 09:55 Dose: 250 mls/hr Documented by: Ceftriaxone Sodium 1 gm/ (Sodium Chloride) 100 mls @ 200 mls/hr IV ONETIME ONE Stop: 03/06/21 11:04 Last Admin: 03/06/21 10:44 Dose: 200 mls/hr Documented by: Sodium Chloride (Normal Saline) 100 mls @ 60 mls/hr IV ASDIRECTED [facility] Last Admin: 03/06/21 11:10 Dose: 60 mls/hr Documented by: Sodium Chloride (Normal Saline) 1,000 mls @ 150 mls/hr IV ASDIRECTED [facility] Last Admin: 03/06/21 14:48 Dose: 150 mls/hr Documented by: Remdesivir 200 mg/ Sodium (Chloride) 250 mls @ 250 mls/hr IV ONETIME ONE Stop: 03/06/21 16:18 Last Admin: 03/06/21 16:56 Dose: 250 mls/hr Documented by: Iopamidol (Iopamidol 755 Mg/Ml 100 Ml Bottle) 100 ml IVPUSH ONETIME ONE Stop: 03/06/21 10:41 Last Admin: 03/06/21 11:09 Dose: 100 ml Documented by: - Exam Physical Findings Comments:: General: Alert, Oriented, Other (Poor historian) HEENT: Conjunctiva Clear, Mucosa Moist & [place] Neck: Supple Lungs: Crackles (Bibasilar crackles). No: Normal Respiratory Effort (Increased rate) Cardiovascular: Regular Rate, Regular Rhythm GI/Abdominal Exam: Normal Bowel Sounds, Soft, Non-Tender, No Organomegaly, No Distention, No Abnormal Bruit, No Mass Back Exam: Normal Inspection Extremities: Normal Inspection, Normal Range of Motion, Non-Tender, No Pedal Edema, Normal Capillary Refill Skin: Warm, Dry, Intact Neuro Extensive - Mental Status: Alert, Oriented x3, Normal Mood/Affect, Neuro Extensive - Motor, Sensory, Reflexes: CN II-XII Intact. No focal neurologic deficits Psychiatric: Alert, Normal Affect, Normal Mood - Patient Data Lab Results Last 24 hrs: Laboratory Results - last 24 hr 03/08/21 03/08/21 03/08/21 Range/Units 05:44 05:44 05:44 WBC 10.50 H (4.23-9.07) K/mm3 RBC 4.77 (4.63-6.08) M/mm3 Hgb 14.7 D (13.7-17.5) gm/dl Hct 43.7 (40.1-51.0) % MCV 91.6 (79.0-92.2) fl MCH 30.8 (25.7-32.2) pg MCHC 33.6 (32.2-35.5) g/dl RDW Std Deviation 45.2 H (35.1-43.9) fL Plt Count 184 (163-337) K/mm3 MPV 10.3 (9.4-12.3) fl Neut % (Auto) 87.9 H (34.0-67.9) % Lymph % (Auto) 8.6 L (21.8-53.1) % Toole % (Auto) 3.0 L (5.3-12.2) % Eos % (Auto) 0 L (0.8-7.0) Baso % (Auto) 0.0 L (0.1-1.2) % Neut # (Auto) 9.24 H (1.78-5.38) K/mm3 Lymph # (Auto) 0.90 L (1.32-3.57) K/mm3 [place] # (Auto) 0.31 (0.30-0.82) K/mm3 Eos # (Auto) 0.00 L (0.04-0.54) K/mm3 Baso # (Auto) 0.00 L (0.01-0.08) K/mm3 Manual Slide Review Normal smear D-Dimer, Quantitative 19.69 H (0.19-0.50) mg/L Sodium 147 H (136-145) mEq/L Potassium 3.5 (3.5-5.1) mEq/L Chloride 110 H (98-107) mEq/L Carbon Dioxide 27 (21-32) mEq/L Anion Gap 13.5 (5-15) BUN 34 H (7-18) mg/dL Creatinine 1.3 (0.7-1.3) mg/dL Est Cr Clr Drug Dosing 53.35 mL/min Estimated GFR (MDRD) 55 (>60) mL/min BUN/Creatinine Ratio 26.2 H (14-18) Glucose 155 H (70-99) mg/dL Calcium 8.5 (8.5-10.1) mg/dL Phosphorus 3.9 (2.6-4.7) mg/dL Magnesium 2.6 H (1.8-2.4) mg/dL Total Bilirubin 0.7 (0.2-1.0) mg/dL AST 58 H (15-37) U/L ALT 61 (16-63) U/L Alkaline Phosphatase 59 (46-116) U/L C-Reactive Protein 11.5 H* (<1.0) mg/dL Total Protein 5.4 L (6.4-8.2) g/dl Albumin 2.2 L (3.4-5.0) g/dl Globulin 3.2 gm/dL Albumin/Globulin Ratio 0.7 L (1-2) Result Diagrams: 03/08/21 05:44 03/08/21 05:44 Giovanni Results Last 24 hrs: Microbiology 03/06/21 09:43 Blood Culture - Preliminary Blood - Venous 03/06/21 09:35 Blood Culture - Preliminary Blood Sepsis Event Note - Evaluation Sepsis Screening Result: No Definite Risk - Focused Exam Vital Signs: Vital Signs Temp Pulse Pulse Resp BP Pulse Ox Pulse Ox 03/08/21 12:00 36.5 C 25 H 113/70 03/08/21 11:53 90 L 03/08/21 09:47 91 L 03/08/21 08:24 75 87 L 03/08/21 07:36 37.0 C 18 131/84 03/08/21 04:08 92 L 03/08/21 03:54 36.6 C 93 0 L 148/84 H 03/08/21 01:37 92 L 03/08/21 01:06 37.2 C 71 26 H 123/82 - Problem List Review Problem List Initiated/Reviewed/Updated: Yes - My Orders Last 24 Hours: My Active Orders 03/09/21 09:00 dexAMETHasone [Decadron] 20 mg IVPUSH DAILY 03/15/21 09:00 dexAMETHasone 6 mg PO DAILY - Plan Plan:: 65-year-old male with COVID-19 pneumonia and history of DVT COVID-19 pneumonia Acute hypoxic respiratory failure * Pulse ox and oxygen therapy, high flow/BiPAP as needed to maintain oxygen saturation greater than 90% * CT angiogram which showed slightly prominent lymph nodes most likely residual from patient's parenchymal process. Diffuse parenchymal densities within both sides of the chest stable from prior chest x-ray. No findings of pulmonary embolus. * Initial elevation in troponin resolved and likely secondary to increased cardiac output and covid 19 infection * Initial CRP significantly elevated at 23. CRP daily * Initially high lactic acid of 2.5 resolved to 1.5 with fluids and oxygenation * Continue remdesivir, dexamethasone, Rocephin, and azithromycin. 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 * Last occurrence was 2 years ago. * This places him at a high risk for recurrent VTE considering Covid increases thrombosis * On Lasix 40 mg every morning, presumably for dependent edema * His D-dimer 19.69 today but it was 5.42 yesterday. US Doppler showed DVT within the distal right superficial femoral or popliteal vein. I do not think this is a case of treatment failure with Eliquis because I was reported that 1 dose was missed yesterday. I would like to continue Eliquis and add Lovenox 90 mg oral once. Hypertension/hyperlipidemia Plan * Admit to medical floor * HF/BIPAP PRN to keep SPO2 above 90%. Currently on high flow nasal cannula * I-S, prone positioning, RT, and Covid specific routine care * Albuterol, duo nebs as needed * Continue remdesivir, dexamethasone, Rocephin, and azithromycin * Will start baricitinib today. * Follow CBC, CMP, mag, and C-reactive protein. * Reconcile home meds and continue as appropriate * VTE prophylaxis with Eliquis * CODE STATUS: DNR/DNI * Prognosis is fair to poor. On high flow nasal cannula with risk factors of obesity and hypertension. Because of his significant worsening in oxygen saturations Dr. Mcintosh and I recommended baricitinib to her. Dr. Mcintosh and I spoke with Medardo to provide information about baricitinib. I offered the "fax sheet for patients and parents/caregivers, for baricitinib" to read and review. I stated that therapy has been approved by an emergency use authorization process and has not fully been FDA reviewed or approved. I shared potential risks from the therapy including increased risk for serious infect ions, anaphylaxis, and reaction to medication. I discussed there are other potential treatment options that are currently not FDA approved to treat COVID- 19. Offered opportunity to ask questions and all questions were answered. Medardo voiced understanding and agreed to proceed with treatment.
[2021-03-08] MEDS ORDERED: Enoxaparin 100 MG/1 ML Syringe SUBCUT ONE (13:45)
[2021-03-08] MEDS: Azithromycin 500 MG in Sodium Chloride 0.9% 250 ML IV SCH (14:30)
[2021-03-08] MEDS: cefTRIAXone 2 GM in Sodium Chloride 0.9% 100 ML IV SCH (16:46)
[2021-03-08] MEDS: REMDESIVIR 100 MG in Sodium Chloride 0.9% 100 ML IV SCH (17:58)
[2021-03-08] MEDS ORDERED: traZODone 50 MG Tab PO PRN (23:15)
[2021-03-09] MEDS ORDERED: LORazepam 2 MG/ML SDV IVPUSH PRN ×3 (01:14→02:55)
[2021-03-09] MEDS ORDERED: LORazepam 2 MG/ML SDV ONE (01:25)
[2021-03-09] MEDS: LORazepam 2 MG/ML SDV IVPUSH PRN ×10 (03:07→19:58)
[2021-03-09] MEDS: Albuterol 6.7 GM Inhaler INH SCH ×4 (05:37→21:24)
[2021-03-09] MEDS: Pantoprazole 40 MG Tab.CR PO SCH ×2 (06:31→17:11)
[2021-03-09] MEDS: atorvaSTATin 20 MG Tab PO SCH (10:05)
[2021-03-09] MEDS: Dexamethasone 10 MG/ML SDV IVPUSH SCH (10:10)
[2021-03-09] MEDS: Apixaban 5 MG Tab PO SCH ×2 (10:12→20:51)
[2021-03-09] MEDS: Furosemide 40 MG Tab PO SCH (10:13)
[2021-03-09] MEDS: Fluticasone Propionate Nasal Spray 16 GM Bottle NASBOTH SCH (10:26)
--- NOTE | 2021-03-09 14:42 | PCM.PN ---
- General Info Date of Service: 03/09/21 Admission Dx/Problem (Free Text): Admission Diagnosis/Problem Admission Diagnosis/Problem Pneumonia Subjective Update: 65-year-old male unvaccinated for COVID-19 presented to the emergency department for the second time on 03/06/2021. He was seen initially on 02/25/2021 with symptoms including cough, low-grade fever, chills x 3 days. Today patient does not have any new complaints. Denies headache, dizziness, chest pain, abdominal pain, nausea, vomiting, or diarrhea. But he became agitated last night and today. He sees something on the wall and floor and tries to remove lines and mask. She is all 60 L with FiO2 90% Spoke to who states that he drinks alcohol every day for 3 to 4 years. But he last use of alcohol was 15 days ago. His fully understood BZ can suppress his respiration but she agreed to use BZ to control his agitation. - Review of Systems Systems Review Comment:: General: Reports: agitation at times HEENT: Reports: No Symptoms Pulmonary: Reports: Shortness of Breath Cardiovascular: Reports: No Symptoms Gastrointestinal: Reports: No Symptoms Genitourinary: Reports: No Symptoms Musculoskeletal: Reports: No Symptoms Skin: Reports: No Symptoms Neurological: Reports: No Symptoms Psychiatric: Reports: No Symptoms - Patient Data Vitals - Most Recent: Last Vital Signs Temp 37.4 C 03/09/21 03:45 Pulse 110 H 03/09/21 03:45 Resp 30 H 03/09/21 03:10 BP 93/41 L 03/09/21 03:45 Pulse Ox 82 L 03/09/21 14:10 Weight - Most Recent: 92.079 kg I&O - Last 24 Hours: Intake & Output 03/08/21 03/09/21 03/09/21 22:59 06:59 14:59 Intake Total 520 200 Output Total 700 250 Balance -180 -50 Lab Results Last 24 Hours: Laboratory Results - last 24 hr 03/09/21 03/09/21 Range/Units 07:29 14:20 Puncture Site Rt radial ABG pH 7.43 (7.35-7.45) ABG pCO2 35.0 (35.0-45.0) mmHg ABG pO2 52.0 L (80.0-100.0) mmHg ABG HCO3 22.8 (22.0-26.0) meq/L ABG O2 Saturation 83.3 L (96.0-97.0) % ABG Base Excess -0.4 (-2-2.0) A-a Gradient 582 mmHg O2 Delivery Device Hiflow nasal cannula Oxygen Flow Rate 60.0 FiO2 95.00 (21.00-100.00) % Sodium 149 H (136-145) mEq/L Potassium 3.6 (3.5-5.1) mEq/L Chloride 111 H (98-107) mEq/L Carbon Dioxide 28 (21-32) mEq/L Anion Gap 13.6 (5-15) BUN 28 H (7-18) mg/dL Creatinine 1.5 H (0.7-1.3) mg/dL Est Cr Clr Drug Dosing 46.23 mL/min Estimated GFR (MDRD) 47 (>60) mL/min BUN/Creatinine Ratio 18.7 H (14-18) Glucose 106 H (70-99) mg/dL Calcium 8.7 (8.5-10.1) mg/dL Magnesium 2.2 (1.8-2.4) mg/dL Total Bilirubin 0.8 (0.2-1.0) mg/dL AST 64 H (15-37) U/L ALT 52 (16-63) U/L Alkaline Phosphatase 72 (46-116) U/L Total Protein 6.4 (6.4-8.2) g/dl Albumin 2.3 L (3.4-5.0) g/dl Globulin 4.1 gm/dL Albumin/Globulin Ratio 0.6 L (1-2) Med Orders - Current: Current Medications Acetaminophen (Acetaminophen 325 Mg Tab) 650 mg PO Q4H PRN PRN Reason: Pain (Mild 1-3)/fever Hydrocodone Bitart/Acetaminophen (Acetaminophen/Hydrocodone 325-5 Mg Tab) 1 tab PO Q4H PRN PRN Reason: Pain (moderate 4-6) Albuterol (Albuterol 6.7 Gm Inhaler) 0 gm INH Q6H [facility] Last Admin: 03/09/21 13:35 Dose: Not Given Documented by: Albuterol/Ipratropium (Albuterol/Ipratropium 3.0-0.5 Mg/3 Ml Neb Soln) 3 ml NEB Q4HRRT PRN PRN Reason: Shortness of Breath Apixaban (Apixaban 5 Mg Tab) 5 mg PO BID [facility] Last Admin: 03/09/21 10:12 Dose: 5 mg Documented by: Atorvastatin Calcium (Atorvastatin 20 Mg Tab) 20 mg PO DAILY [facility] Last Admin: 03/09/21 10:05 Dose: 20 mg Documented by: Baricitinib (Baricitinib 2 Mg Tab) 2 mg PO Q24H [facility] Stop: 03/20/21 21:31 Last Admin: 03/08/21 21:44 Dose: 2 mg Documented by: Dexamethasone (Dexamethasone 10 Mg/Ml Sdv) 20 mg IVPUSH DAILY [facility] Stop: 03/14/21 23:59 Last Admin: 03/09/21 10:10 Dose: 20 mg Documented by: Dexamethasone (Dexamethasone 4 Mg Tab) 6 mg PO DAILY [facility] Fluticasone Propionate (Fluticasone Propionate Nasal [place] 16 Gm Bottle) 0 gm NASBOTH DAILY [facility] Last Admin: 03/09/21 10:26 Dose: 2 sprays Documented by: Furosemide (Furosemide 40 Mg Tab) 40 mg PO DAILY [facility] Last Admin: 03/09/21 10:13 Dose: 40 mg Documented by: Azithromycin 500 mg/ Sodium (Chloride) 250 mls @ 250 mls/hr IV Q24H [facility] Last Admin: 03/08/21 14:30 Dose: 250 mls/hr Documented by: Remdesivir 100 mg/ Sodium (Chloride) 100 mls @ 100 mls/hr IV Q24H [facility] Stop: 03/10/21 18:14 Last Admin: 03/08/21 17:58 Dose: 100 mls/hr Documented by: Ceftriaxone Sodium 2 gm/ (Sodium Chloride) 100 mls @ 200 mls/hr IV Q24H [facility] Stop: 03/10/21 17:29 Last Admin: 03/08/21 16:46 Dose: 200 mls/hr Documented by: Lorazepam (Lorazepam 2 Mg/Ml Sdv) 1 - 3 mg IVPUSH Q1H PRN; Protocol PRN Reason: Anxiety Last Admin: 03/09/21 13:55 Dose: 1 mg Documented by: Ondansetron HCl (Ondansetron 4 Mg/2 Ml Sdv) 4 mg IV Q6H PRN PRN Reason: Nausea/Vomiting Pantoprazole Sodium (Pantoprazole 40 Mg Tab.Cr) 40 mg PO BIDAC [facility] Last Admin: 03/09/21 06:31 Dose: Not Given Documented by: Sodium Chloride (Sodium Chloride 0.9% 10 Ml Syringe) 10 ml FLUSH ONETIME PRN PRN Reason: Keep Vein Open Last Admin: 03/06/21 11:09 Dose: 10 ml Documented by: Trazodone HCl (Trazodone 50 Mg Tab) 50 mg PO BEDTIME PRN PRN Reason: Insomnia Last Admin: 03/08/21 23:28 Dose: 50 mg Documented by: Discontinued Medications Aspirin (Aspirin 81 Mg Tab.Chew) 324 mg PO ONETIME ONE Stop: 03/06/21 12:46 Last Admin: 03/06/21 13:01 Dose: 324 mg Documented by: Calcium Carbonate/Glycine (Calcium Carbonate 500 Mg Tab.Chew) 1,000 mg PO ONETIME ONE Stop: 03/07/21 09:38 Last Admin: 03/07/21 09:53 Dose: 1,000 mg Documented by: Dexamethasone (Dexamethasone 10 Mg/Ml Sdv) 6 mg IVPUSH DAILY [facility] Stop: 03/15/21 09:01 Last Admin: 03/08/21 08:29 Dose: 6 mg Documented by: Enoxaparin Sodium (Enoxaparin 40 Mg/0.4 Ml Syringe) 40 mg SUBCUT DAILY [facility] Enoxaparin Sodium (Enoxaparin 100 Mg/1 Ml Syringe) 90 mg SUBCUT ONETIME ONE Stop: 03/08/21 13:46 Last Admin: 03/08/21 14:20 Dose: 90 mg Documented by: Sodium Chloride (Normal Saline) 1,000 mls @ 250 mls/hr IV ONETIME ONE Stop: 03/06/21 13:50 Last Admin: 03/06/21 09:55 Dose: 250 mls/hr Documented by: Ceftriaxone Sodium 1 gm/ (Sodium Chloride) 100 mls @ 200 mls/hr IV ONETIME ONE Stop: 03/06/21 11:04 Last Admin: 03/06/21 10:44 Dose: 200 mls/hr Documented by: Sodium Chloride (Normal Saline) 100 mls @ 60 mls/hr IV ASDIRECTED [facility] Last Admin: 03/06/21 11:10 Dose: 60 mls/hr Documented by: Sodium Chloride (Normal Saline) 1,000 mls @ 150 mls/hr IV ASDIRECTED [facility] Last Admin: 03/06/21 14:48 Dose: 150 mls/hr Documented by: Remdesivir 200 mg/ Sodium (Chloride) 250 mls @ 250 mls/hr IV ONETIME ONE Stop: 03/06/21 16:18 Last Admin: 03/06/21 16:56 Dose: 250 mls/hr Documented by: Iopamidol (Iopamidol 755 Mg/Ml 100 Ml Bottle) 100 ml IVPUSH ONETIME ONE Stop: 03/06/21 10:41 Last Admin: 03/06/21 11:09 Dose: 100 ml Documented by: Lorazepam (Lorazepam 2 Mg/Ml Sdv) 1 mg IVPUSH Q6H PRN; Protocol PRN Reason: Anxiety Last Admin: 03/09/21 01:37 Dose: 1 mg Documented by: Lorazepam (Lorazepam 2 Mg/Ml Sdv) Confirm Administered Dose 2 mg .ROUTE .STK-MED ONE Stop: 03/09/21 01:26 Last Admin: 03/09/21 02:20 Dose: Not Given Documented by: Lorazepam (Lorazepam 2 Mg/Ml Sdv) 1 - 3 mg IVPUSH Q1H PRN; Protocol PRN Reason: Anxiety - Exam Physical Findings Comments:: General: confusion, agitation at times HEENT: Conjunctiva Clear, Mucosa Moist & [place] Neck: Supple Lungs: Crackles (Bibasilar crackles). No: Normal Respiratory Effort (Increased rate) Cardiovascular: Regular Rate, Regular Rhythm GI/Abdominal Exam: Normal Bowel Sounds, Soft, Non-Tender, No Organomegaly, No Distention, No Abnormal Bruit, No Mass Back Exam: Normal Inspection Extremities: Normal Inspection, Normal Range of Motion, Non-Tender, No Pedal Edema, Normal Capillary Refill Skin: Warm, Dry, Intact Neuro Extensive - Mental Status: confusion, Normal Mood/Affect, Neuro Extensive - Motor, Sensory, Reflexes: CN II-XII Intact. No focal neurologic deficits Psychiatric: Alert, Normal Affect, Normal Mood - Patient Data Lab Results Last 24 hrs: Laboratory Results - last 24 hr 03/09/21 03/09/21 Range/Units 07:29 14:20 Puncture Site Rt radial ABG pH 7.43 (7.35-7.45) ABG pCO2 35.0 (35.0-45.0) mmHg ABG pO2 52.0 L (80.0-100.0) mmHg ABG HCO3 22.8 (22.0-26.0) meq/L ABG O2 Saturation 83.3 L (96.0-97.0) % ABG Base Excess -0.4 (-2-2.0) A-a Gradient 582 mmHg O2 Delivery Device Hiflow nasal cannula Oxygen Flow Rate 60.0 FiO2 95.00 (21.00-100.00) % Sodium 149 H (136-145) mEq/L Potassium 3.6 (3.5-5.1) mEq/L Chloride 111 H (98-107) mEq/L Carbon Dioxide 28 (21-32) mEq/L Anion Gap 13.6 (5-15) BUN 28 H (7-18) mg/dL Creatinine 1.5 H (0.7-1.3) mg/dL Est Cr Clr Drug Dosing 46.23 mL/min Estimated GFR (MDRD) 47 (>60) mL/min BUN/Creatinine Ratio 18.7 H (14-18) Glucose 106 H (70-99) mg/dL Calcium 8.7 (8.5-10.1) mg/dL Magnesium 2.2 (1.8-2.4) mg/dL Total Bilirubin 0.8 (0.2-1.0) mg/dL AST 64 H (15-37) U/L ALT 52 (16-63) U/L Alkaline Phosphatase 72 (46-116) U/L Total Protein 6.4 (6.4-8.2) g/dl Albumin 2.3 L (3.4-5.0) g/dl Globulin 4.1 gm/dL Albumin/Globulin Ratio 0.6 L (1-2) Result Diagrams: 03/08/21 05:44 03/09/21 07:29 Sepsis Event Note - Evaluation Sepsis Screening Result: Sepsis Risk - Focused Exam Vital Signs: Vital Signs Temp Temp Pulse Resp BP Pulse Ox Pulse Ox 03/09/21 14:10 82 L 03/09/21 13:29 92 L 03/09/21 12:00 90 L 03/09/21 08:00 88 L 03/09/21 03:45 37.4 C 110 H 93/41 L 03/09/21 03:10 37.7 C 37.7 C 30 H 115/79 - Problem List Review Problem List Initiated/Reviewed/Updated: Yes - My Orders Last 24 Hours: My Active Orders 03/08/21 23:15 traZODone 50 mg PO BEDTIME PRN 03/09/21 02:56 LORazepam [Ativan] 1 - 3 mg IVPUSH Q1H PRN 03/09/21 09:00 Fluticasone Propionate [Flonase] 0 gm NASBOTH DAILY dexAMETHasone [Decadron] 20 mg IVPUSH DAILY 03/09/21 14:14 Chest 1V Frontal [CR] Urgent 03/10/21 05:00 CBC WITH AUTO DIFF [HEME] DAILY COMPREHENSIVE METABOLIC PN,CMP [CHEM] DAILY CRP [C-REACTIVE PROTEIN] [CHEM] DAILY 03/11/21 05:00 CBC WITH AUTO DIFF [HEME] DAILY COMPREHENSIVE METABOLIC PN,CMP [CHEM] DAILY CRP [C-REACTIVE PROTEIN] [CHEM] DAILY 03/12/21 05:00 CBC WITH AUTO DIFF [HEME] DAILY COMPREHENSIVE METABOLIC PN,CMP [CHEM] DAILY CRP [C-REACTIVE PROTEIN] [CHEM] DAILY 03/13/21 05:00 CBC WITH AUTO DIFF [HEME] DAILY COMPREHENSIVE METABOLIC PN,CMP [CHEM] DAILY CRP [C-REACTIVE PROTEIN] [CHEM] DAILY 03/14/21 05:00 CBC WITH AUTO DIFF [HEME] DAILY COMPREHENSIVE METABOLIC PN,CMP [CHEM] DAILY CRP [C-REACTIVE PROTEIN] [CHEM] DAILY 03/15/21 09:00 dexAMETHasone 6 mg PO DAILY - Plan Plan:: 65-year-old male with COVID-19 pneumonia and history of DVT COVID-19 pneumonia Acute hypoxic respiratory failure * Pulse ox and oxygen therapy, high flow/BiPAP as needed to maintain oxygen saturation greater than 90% * CT angiogram which showed slightly prominent lymph nodes most likely residual from patient's parenchymal process. Diffuse parenchymal densities within both sides of the chest stable from prior chest x-ray. No findings of pulmonary embolus. * Initial elevation in troponin resolved and likely secondary to increased cardiac output and covid 19 infection * Initial CRP significantly elevated at 23. CRP daily * Initially high lactic acid of 2.5 resolved to 1.5 with fluids and oxygenation * Continue remdesivir, Rocephin, and azithromycin. I increased dexamethasone to 20mg daily on 03/08 * He has elevation of creatinine. I would not like to order CTA chest. He had CTA chest on 03/06 - Negative for PE. 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 * Last occurrence was 2 years ago. * This places him at a high risk for recurrent VTE considering Covid increases thrombosis * On Lasix 40 mg every morning, presumably for dependent edema * His D-dimer 19.69 on 03/08 but it was 5.42 on 03/07. US Doppler showed DVT within the distal right superficial femoral or popliteal vein. I do not think this is a case of treatment failure with Eliquis because I was reported that 1 dose was missed yesterday. I would like to continue Eliquis and add Lovenox 90 mg oral once. Hypertension/hyperlipidemia Chronic alcohol abuse/alcohol withdrawal * drinks alcohol every day for 3 to 4 years. But as , he last use of alcohol was 15 days ago. * CIWA protocol was initiated. Plan * Admit to medical floor * HF/BIPAP PRN to keep SPO2 above 90%. Currently on high flow nasal cannula * I-S, prone positioning, RT, and Covid specific routine care * Albuterol, duo nebs as needed * Continue remdesivir, dexamethasone, Rocephin, and azithromycin * Will start baricitinib today. * Follow CBC, CMP, mag, and C-reactive protein. * Reconcile home meds and continue as appropriate * VTE prophylaxis with Eliquis * CODE STATUS: DNR/DNI * Prognosis: Very guarded. Updated to Because of his significant worsening in oxygen saturations Dr. Mcintosh and I recommended baricitinib to her. Dr. Mcintosh and I spoke with Tre to provide information about baricitinib. Dr Norbert Mcintosh and I offered the "fax sheet for patients and parents/caregivers, for baricitinib" to read and review. Dr. Mcintosh and I stated that therapy has been approved by an emergency use authorization process and has not fully been FDA reviewed or approved. Dr. Mcintosh and I shared potential risks from the therapy including increased risk for serious infections, anaphylaxis, and reaction to medication. Dr. Mcintosh and I discussed there are other potential treatment options that are currently not FDA approved to treat COVID-19. Offered opportunity to ask questions and all questions were answered. Tre voiced understanding and agreed to proceed with treatment. Disposition: Length of stay greater then 96 hours due to slow response to treatment.
--- NOTE | 2021-03-09 14:56 | CR ---
Chest: Frontal view of the chest was obtained. Comparison: Prior chest CT of 03/06/21 and chest x-ray also performed on 03/06/21. Patchy areas of increased density are seen within both sides of the chest. Findings are felt to be fairly stable from previous exams. Heart is somewhat enlarged. Upper mediastinum is stable. No acute osseous abnormality is appreciated. Impression: 1. Chest x-ray appears without change from previous study of 03/06/21. 2. Nothing acute is appreciated from prior exam. Diagnostic code #3
[2021-03-09] MEDS: Azithromycin 500 MG in Sodium Chloride 0.9% 250 ML IV SCH (15:54)
[2021-03-09] MEDS: cefTRIAXone 2 GM in Sodium Chloride 0.9% 100 ML IV SCH (17:10)
[2021-03-09] MEDS: Albuterol/Ipratropium 3.0-0.5 MG/3 ML Neb Soln NEB PRN ×2 (17:31→21:16)
[2021-03-09] MEDS: REMDESIVIR 100 MG in Sodium Chloride 0.9% 100 ML IV SCH (18:00)
[2021-03-09] MEDS: Sodium Chloride 0.9% 10 ML Syringe FLUSH PRN (18:57)
[2021-03-10] MEDS: LORazepam 2 MG/ML SDV IVPUSH PRN ×6 (00:08→23:15)
[2021-03-10] MEDS: Albuterol 6.7 GM Inhaler INH SCH ×4 (05:24→21:55)
[2021-03-10] MEDS: Pantoprazole 40 MG Tab.CR PO SCH (05:38)
[2021-03-10] MEDS: Albuterol/Ipratropium 3.0-0.5 MG/3 ML Neb Soln NEB PRN ×2 (05:40→07:44)
[2021-03-10] MEDS: Dexamethasone 10 MG/ML SDV IVPUSH SCH (08:56)
[2021-03-10] MEDS: Apixaban 5 MG Tab PO SCH (09:26)
[2021-03-10] MEDS: atorvaSTATin 20 MG Tab PO SCH (09:26)
[2021-03-10] MEDS: Fluticasone Propionate Nasal Spray 16 GM Bottle NASBOTH SCH (09:26)
[2021-03-10] MEDS: Dextrose 5% in Water 1,000 ML IV SCH (09:51)
[2021-03-10] MEDS: Enoxaparin 100 MG/1 ML Syringe SUBCUT SCH ×2 (13:15→20:38)
--- NOTE | 2021-03-10 14:14 | PCM.PN ---
- General Info Date of Service: 03/10/21 Admission Dx/Problem (Free Text): Admission Diagnosis/Problem Admission Diagnosis/Problem Pneumonia Subjective Update: 65-year-old male unvaccinated for COVID-19 presented to the emergency department for the second time on 03/06/2021. He was seen initially on 02/25/2021 with symptoms including cough, low-grade fever, chills x 3 days. Today patient does not have any new complaints. Denies headache, dizziness, chest pain, abdominal pain, nausea, vomiting, or diarrhea. He is still agitated at times. He is all 60 L with FiO2 90% CIWA score 13 last night Updated to about his condition and treatment. His prognosis is very guarded - Review of Systems Systems Review Comment:: General: Reports: agitation at times HEENT: Reports: No Symptoms Pulmonary: Reports: Shortness of Breath Cardiovascular: Reports: No Symptoms Gastrointestinal: Reports: No Symptoms Genitourinary: Reports: No Symptoms Musculoskeletal: Reports: No Symptoms Skin: Reports: No Symptoms Neurological: Reports: No Symptoms Psychiatric: Reports: No Symptoms - Patient Data Vitals - Most Recent: Last Vital Signs Temp 36.4 C 03/10/21 11:47 Pulse 68 03/10/21 11:47 Resp 38 H 03/10/21 11:47 BP 142/86 H 03/10/21 11:47 Pulse Ox 89 L 03/10/21 07:58 Weight - Most Recent: 90.492 kg I&O - Last 24 Hours: Intake & Output 03/09/21 03/10/21 03/10/21 22:59 06:59 14:59 Output Total 50 Balance -50 Lab Results Last 24 Hours: Laboratory Results - last 24 hr 03/09/21 03/10/21 03/10/21 Range/Units 14:20 05:20 05:20 WBC (4.23-9.07) K/mm3 RBC (4.63-6.08) M/mm3 Hgb (13.7-17.5) gm/dl Hct (40.1-51.0) % MCV (79.0-92.2) fl MCH (25.7-32.2) pg MCHC (32.2-35.5) g/dl RDW Std Deviation (35.1-43.9) fL Plt Count (163-337) K/mm3 MPV (9.4-12.3) fl Neut % (Auto) (34.0-67.9) % Lymph % (Auto) (21.8-53.1) % Emmet % (Auto) (5.3-12.2) % Eos % (Auto) (0.8-7.0) Baso % (Auto) (0.1-1.2) % Neut # (Auto) (1.78-5.38) K/mm3 Lymph # (Auto) (1.32-3.57) K/mm3 Emmet # (Auto) (0.30-0.82) K/mm3 Eos # (Auto) (0.04-0.54) K/mm3 Baso # (Auto) (0.01-0.08) K/mm3 Manual Slide Review D-Dimer, Quantitative > 35.20 H (0.19-0.50) mg/L Puncture Site Rt radial ABG pH 7.43 (7.35-7.45) ABG pCO2 35.0 (35.0-45.0) mmHg ABG pO2 52.0 L (80.0-100.0) mmHg ABG HCO3 22.8 (22.0-26.0) meq/L ABG O2 Saturation 83.3 L (96.0-97.0) % ABG Base Excess -0.4 (-2-2.0) A-a Gradient 582 mmHg O2 Delivery Device Hiflow nasal cannula Oxygen Flow Rate 60.0 FiO2 95.00 (21.00-100.00) % Sodium 148 H (136-145) mEq/L Potassium 4.1 (3.5-5.1) mEq/L Chloride 113 H (98-107) mEq/L Carbon Dioxide 25 (21-32) mEq/L Anion Gap 14.1 (5-15) BUN 31 H (7-18) mg/dL Creatinine 1.3 (0.7-1.3) mg/dL Est Cr Clr Drug Dosing 53.35 mL/min Estimated GFR (MDRD) 55 (>60) mL/min BUN/Creatinine Ratio 23.8 H (14-18) Glucose 208 H (70-99) mg/dL Calcium 8.6 (8.5-10.1) mg/dL Magnesium 2.6 H (1.8-2.4) mg/dL Total Bilirubin 0.5 (0.2-1.0) mg/dL AST 44 H (15-37) U/L ALT 51 (16-63) U/L Alkaline Phosphatase 79 (46-116) U/L C-Reactive Protein 17.1 H* (<1.0) mg/dL Total Protein 6.1 L (6.4-8.2) g/dl Albumin 2.1 L (3.4-5.0) g/dl Globulin 4.0 gm/dL Albumin/Globulin Ratio 0.5 L (1-2) Urine Color (Yellow) Urine Appearance (Clear) Urine pH (5.0-8.0) Ur Specific [place] (1.005-1.030) Urine Protein (Negative) Urine Glucose (UA) (Negative) Urine Ketones (Negative) Urine Occult Blood (Negative) Urine Nitrite (Negative) Urine Bilirubin (Negative) Urine Urobilinogen (0.2-1.0) Ur Leukocyte Esterase (Negative) Urine RBC (0-5) /hpf Urine WBC (0-5) /hpf Ur Epithelial Cells (0-5) /hpf Urine Bacteria (FEW) /hpf Urine Mucus (FEW) /hpf 03/10/21 03/10/21 Range/Units 05:20 10:05 WBC 13.77 H (4.23-9.07) K/mm3 RBC 4.84 (4.63-6.08) M/mm3 Hgb 14.8 (13.7-17.5) gm/dl Hct 45.2 (40.1-51.0) % MCV 93.4 H (79.0-92.2) fl MCH 30.6 (25.7-32.2) pg MCHC 32.7 (32.2-35.5) g/dl RDW Std Deviation 45.1 H (35.1-43.9) fL Plt Count 148 L (163-337) K/mm3 MPV 10.9 (9.4-12.3) fl Neut % (Auto) 91.8 H (34.0-67.9) % Lymph % (Auto) 4.6 L (21.8-53.1) % Emmet % (Auto) 3.0 L (5.3-12.2) % Eos % (Auto) 0 L (0.8-7.0) Baso % (Auto) 0.1 (0.1-1.2) % Neut # (Auto) 12.64 H (1.78-5.38) K/mm3 Lymph # (Auto) 0.63 L (1.32-3.57) K/mm3 Emmet # (Auto) 0.41 (0.30-0.82) K/mm3 Eos # (Auto) 0.00 L (0.04-0.54) K/mm3 Baso # (Auto) 0.02 (0.01-0.08) K/mm3 Manual Slide Review Abnormal smear D-Dimer, Quantitative (0.19-0.50) mg/L Puncture Site ABG pH (7.35-7.45) ABG pCO2 (35.0-45.0) mmHg ABG pO2 (80.0-100.0) mmHg ABG HCO3 (22.0-26.0) meq/L ABG O2 Saturation (96.0-97.0) % ABG Base Excess (-2-2.0) A-a Gradient mmHg O2 Delivery Device Oxygen Flow Rate FiO2 (21.00-100.00) % Sodium (136-145) mEq/L Potassium (3.5-5.1) mEq/L Chloride (98-107) mEq/L Carbon Dioxide (21-32) mEq/L Anion Gap (5-15) BUN (7-18) mg/dL Creatinine (0.7-1.3) mg/dL Est Cr Clr Drug Dosing mL/min Estimated GFR (MDRD) (>60) mL/min BUN/Creatinine Ratio (14-18) Glucose (70-99) mg/dL Calcium (8.5-10.1) mg/dL Magnesium (1.8-2.4) mg/dL Total Bilirubin (0.2-1.0) mg/dL AST (15-37) U/L ALT (16-63) U/L Alkaline Phosphatase (46-116) U/L C-Reactive Protein (<1.0) mg/dL Total Protein (6.4-8.2) g/dl Albumin (3.4-5.0) g/dl Globulin gm/dL Albumin/Globulin Ratio (1-2) Urine Color Yellow (Yellow) Urine Appearance Clear (Clear) Urine pH 6.5 (5.0-8.0) Ur Specific [place] > or = 1.030 (1.005-1.030) Urine Protein 2+ H (Negative) Urine Glucose (UA) Negative (Negative) Urine Ketones 1+ H (Negative) Urine Occult Blood Negative (Negative) Urine Nitrite Negative (Negative) Urine Bilirubin 1+ H (Negative) Urine Urobilinogen 0.2 (0.2-1.0) Ur Leukocyte Esterase Negative (Negative) Urine RBC 0-5 (0-5) /hpf Urine WBC 0-5 (0-5) /hpf Ur Epithelial Cells Not seen (0-5) /hpf Urine Bacteria Moderate H (FEW) /hpf Urine Mucus Many H (FEW) /hpf Med Orders - Current: Current Medications Acetaminophen (Acetaminophen 325 Mg Tab) 650 mg PO Q4H PRN PRN Reason: Pain (Mild 1-3)/fever Hydrocodone Bitart/Acetaminophen (Acetaminophen/Hydrocodone 325-5 Mg Tab) 1 tab PO Q4H PRN PRN Reason: Pain (moderate 4-6) Albuterol (Albuterol 6.7 Gm Inhaler) 0 gm INH Q6H [facility] Last Admin: 03/10/21 11:40 Dose: Not Given Documented by: Albuterol/Ipratropium (Albuterol/Ipratropium 3.0-0.5 Mg/3 Ml Neb Soln) 3 ml NEB Q4HRRT PRN PRN Reason: Shortness of Breath Last Admin: 03/10/21 07:44 Dose: 3 ml Documented by: Atorvastatin Calcium (Atorvastatin 20 Mg Tab) 20 mg PO DAILY [facility] Last Admin: 03/10/21 09:26 Dose: Not Given Documented by: Baricitinib (Baricitinib 2 Mg Tab) 2 mg PO Q24H [facility] Stop: 03/20/21 21:31 Last Admin: 03/09/21 20:51 Dose: Not Given Documented by: Dexamethasone (Dexamethasone 10 Mg/Ml Sdv) 20 mg IVPUSH DAILY [facility] Stop: 03/14/21 23:59 Last Admin: 03/10/21 08:56 Dose: 20 mg Documented by: Dexamethasone (Dexamethasone 4 Mg Tab) 6 mg PO DAILY [facility] Enoxaparin Sodium (Enoxaparin 100 Mg/1 Ml Syringe) 90 mg 1 mg/kg (90 mg) SUBCUT BID [facility] Last Admin: 03/10/21 13:15 Dose: 90 mg Documented by: Fluticasone Propionate (Fluticasone Propionate Nasal [place] 16 Gm Bottle) 0 gm NASBOTH DAILY [facility] Last Admin: 03/10/21 09:26 Dose: Not Given Documented by: Azithromycin 500 mg/ Sodium (Chloride) 250 mls @ 250 mls/hr IV Q24H [facility] Last Admin: 03/09/21 15:54 Dose: 250 mls/hr Documented by: Remdesivir 100 mg/ Sodium (Chloride) 100 mls @ 100 mls/hr IV Q24H [facility] Stop: 03/10/21 18:14 Last Admin: 03/09/21 18:00 Dose: 100 mls/hr Documented by: Ceftriaxone Sodium 2 gm/ (Sodium Chloride) 100 mls @ 200 mls/hr IV Q24H [facility] Stop: 03/10/21 17:29 Last Admin: 03/09/21 17:10 Dose: 200 mls/hr Documented by: Dextrose/Water (Dextrose 5% In Water) 1,000 mls @ 50 mls/hr IV ASDIRECTED [facility] Last Admin: 03/10/21 09:51 Dose: 50 mls/hr Documented by: Lorazepam (Lorazepam 2 Mg/Ml Sdv) 1 - 2 mg IVPUSH Q1H PRN; Protocol PRN Reason: Withdrawal Symptoms Last Admin: 03/10/21 10:25 Dose: 2 mg Documented by: Ondansetron HCl (Ondansetron 4 Mg/2 Ml Sdv) 4 mg IV Q6H PRN PRN Reason: Nausea/Vomiting Pantoprazole S[facility] ([facility] 40 Mg [facility].Cr) [facility] Admin: 03/10/21 05:38 Dose: Not Given Documented by: Sodium Chloride (Sodium Chloride 0.9% 10 Ml Syringe) 10 ml FLUSH ONETIME PRN PRN Reason: Keep Vein Open Last Admin: 03/09/21 18:57 Dose: 30 ml Documented by: Trazodone HCl (Trazodone 50 Mg Tab) 50 mg PO BEDTIME PRN PRN Reason: Insomnia Last Admin: 03/08/21 23:28 Dose: 50 mg Documented by: Discontinued Medications Apixaban (Apixaban 5 Mg Tab) 5 mg PO BID [facility] Last Admin: 03/10/21 09:26 Dose: Not Given Documented by: Aspirin (Aspirin 81 Mg Tab.Chew) 324 mg PO ONETIME ONE Stop: 03/06/21 12:46 Last Admin: 03/06/21 13:01 Dose: 324 mg Documented by: Calcium Carbonate/Glycine (Calcium Carbonate 500 Mg Tab.Chew) 1,000 mg PO ONETIME ONE Stop: 03/07/21 09:38 Last Admin: 03/07/21 09:53 Dose: 1,000 mg Documented by: Dexamethasone (Dexamethasone 10 Mg/Ml Sdv) 6 mg IVPUSH DAILY [facility] Stop: 03/15/21 09:01 Last Admin: 03/08/21 08:29 Dose: 6 mg Documented by: Enoxaparin Sodium (Enoxaparin 40 Mg/0.4 Ml Syringe) 40 mg SUBCUT DAILY [facility] Enoxaparin Sodium (Enoxaparin 100 Mg/1 Ml Syringe) 90 mg SUBCUT ONETIME ONE Stop: 03/08/21 13:46 Last Admin: 03/08/21 14:20 Dose: 90 mg Documented by: Furosemide (Furosemide 40 Mg Tab) 40 mg PO DAILY [facility] Last Admin: 03/09/21 10:13 Dose: 40 mg Documented by: Sodium Chloride (Normal Saline) 1,000 mls @ 250 mls/hr IV ONETIME ONE Stop: 03/06/21 13:50 Last Admin: 03/06/21 09:55 Dose: 250 mls/hr Documented by: Ceftriaxone Sodium 1 gm/ (Sodium Chloride) 100 mls @ 200 mls/hr IV ONETIME ONE Stop: 03/06/21 11:04 Last Admin: 03/06/21 10:44 Dose: 200 mls/hr Documented by: Sodium Chloride (Normal Saline) 100 mls @ 60 mls/hr IV ASDIRECTED [facility] Last Admin: 03/06/21 11:10 Dose: 60 mls/hr Documented by: Sodium Chloride (Normal Saline) 1,000 mls @ 150 mls/hr IV ASDIRECTED [facility] Last Admin: 03/06/21 14:48 Dose: 150 mls/hr Documented by: Remdesivir 200 mg/ Sodium (Chloride) 250 mls @ 250 mls/hr IV ONETIME ONE Stop: 03/06/21 16:18 Last Admin: 03/06/21 16:56 Dose: 250 mls/hr Documented by: Iopamidol (Iopamidol 755 Mg/Ml 100 Ml Bottle) 100 ml IVPUSH ONETIME ONE Stop: 03/06/21 10:41 Last Admin: 03/06/21 11:09 Dose: 100 ml Documented by: Lorazepam (Lorazepam 2 Mg/Ml Sdv) 1 mg IVPUSH Q6H PRN; Protocol PRN Reason: Anxiety Last Admin: 03/09/21 01:37 Dose: 1 mg Documented by: Lorazepam (Lorazepam 2 Mg/Ml Sdv) Confirm Administered Dose 2 mg .ROUTE .STK-MED ONE Stop: 03/09/21 01:26 Last Admin: 03/09/21 02:20 Dose: Not Given Documented by: Lorazepam (Lorazepam 2 Mg/Ml Sdv) 1 - 3 mg IVPUSH Q1H PRN; Protocol PRN Reason: Anxiety Lorazepam (Lorazepam 2 Mg/Ml Sdv) 1 - 3 mg IVPUSH Q1H PRN; Protocol PRN Reason: Anxiety Last Admin: 03/09/21 13:55 Dose: 1 mg Documented by: - Exam Physical Findings Comments:: General: confusion, agitation at times HEENT: Conjunctiva Clear, Mucosa Moist & [place] Neck: Supple Lungs: Crackles (Bibasilar crackles). No: Normal Respiratory Effort (Increased rate) Cardiovascular: Regular Rate, Regular Rhythm GI/Abdominal Exam: Normal Bowel Sounds, Soft, Non-Tender, No Organomegaly, No Distention, No Abnormal Bruit, No Mass Back Exam: Normal Inspection Extremities: Normal Inspection, Normal Range of Motion, Non-Tender, No Pedal Edema, Normal Capillary Refill Skin: Warm, Dry, Intact Neuro Extensive - Mental Status: confusion, Normal Mood/Affect, Neuro Extensive - Motor, Sensory, Reflexes: CN II-XII Intact. No focal neurologic deficits Psychiatric: Alert, Normal Affect, Normal Mood - Patient Data Lab Results Last 24 hrs: Laboratory Results - last 24 hr 03/09/21 03/10/21 03/10/21 Range/Units 14:20 05:20 05:20 WBC (4.23-9.07) K/mm3 RBC (4.63-6.08) M/mm3 Hgb (13.7-17.5) gm/dl Hct (40.1-51.0) % MCV (79.0-92.2) fl MCH (25.7-32.2) pg MCHC (32.2-35.5) g/dl RDW Std Deviation (35.1-43.9) fL Plt Count (163-337) K/mm3 MPV (9.4-12.3) fl Neut % (Auto) (34.0-67.9) % Lymph % (Auto) (21.8-53.1) % Emmet % (Auto) (5.3-12.2) % Eos % (Auto) (0.8-7.0) Baso % (Auto) (0.1-1.2) % Neut # (Auto) (1.78-5.38) K/mm3 Lymph # (Auto) (1.32-3.57) K/mm3 Emmet # (Auto) (0.30-0.82) K/mm3 Eos # (Auto) (0.04-0.54) K/mm3 Baso # (Auto) (0.01-0.08) K/mm3 Manual Slide Review D-Dimer, Quantitative > 35.20 H (0.19-0.50) mg/L Puncture Site Rt radial ABG pH 7.43 (7.35-7.45) ABG pCO2 35.0 (35.0-45.0) mmHg ABG pO2 52.0 L (80.0-100.0) mmHg ABG HCO3 22.8 (22.0-26.0) meq/L ABG O2 Saturation 83.3 L (96.0-97.0) % ABG Base Excess -0.4 (-2-2.0) A-a Gradient 582 mmHg O2 Delivery Device Hiflow nasal cannula Oxygen Flow Rate 60.0 FiO2 95.00 (21.00-100.00) % Sodium 148 H (136-145) mEq/L Potassium 4.1 (3.5-5.1) mEq/L Chloride 113 H (98-107) mEq/L Carbon Dioxide 25 (21-32) mEq/L Anion Gap 14.1 (5-15) BUN 31 H (7-18) mg/dL Creatinine 1.3 (0.7-1.3) mg/dL Est Cr Clr Drug Dosing 53.35 mL/min Estimated GFR (MDRD) 55 (>60) mL/min BUN/Creatinine Ratio 23.8 H (14-18) Glucose 208 H (70-99) mg/dL Calcium 8.6 (8.5-10.1) mg/dL Magnesium 2.6 H (1.8-2.4) mg/dL Total Bilirubin 0.5 (0.2-1.0) mg/dL AST 44 H (15-37) U/L ALT 51 (16-63) U/L Alkaline Phosphatase 79 (46-116) U/L C-Reactive Protein 17.1 H* (<1.0) mg/dL Total Protein 6.1 L (6.4-8.2) g/dl Albumin 2.1 L (3.4-5.0) g/dl Globulin 4.0 gm/dL Albumin/Globulin Ratio 0.5 L (1-2) Urine Color (Yellow) Urine Appearance (Clear) Urine pH (5.0-8.0) Ur Specific [place] (1.005-1.030) Urine Protein (Negative) Urine Glucose (UA) (Negative) Urine Ketones (Negative) Urine Occult Blood (Negative) Urine Nitrite (Negative) Urine Bilirubin (Negative) Urine Urobilinogen (0.2-1.0) Ur Leukocyte Esterase (Negative) Urine RBC (0-5) /hpf Urine WBC (0-5) /hpf Ur Epithelial Cells (0-5) /hpf Urine Bacteria (FEW) /hpf Urine Mucus (FEW) /hpf 03/10/21 03/10/21 Range/Units 05:20 10:05 WBC 13.77 H (4.23-9.07) K/mm3 RBC 4.84 (4.63-6.08) M/mm3 Hgb 14.8 (13.7-17.5) gm/dl Hct 45.2 (40.1-51.0) % MCV 93.4 H (79.0-92.2) fl MCH 30.6 (25.7-32.2) pg MCHC 32.7 (32.2-35.5) g/dl RDW Std Deviation 45.1 H (35.1-43.9) fL Plt Count 148 L (163-337) K/mm3 MPV 10.9 (9.4-12.3) fl Neut % (Auto) 91.8 H (34.0-67.9) % Lymph % (Auto) 4.6 L (21.8-53.1) % Emmet % (Auto) 3.0 L (5.3-12.2) % Eos % (Auto) 0 L (0.8-7.0) Baso % (Auto) 0.1 (0.1-1.2) % Neut # (Auto) 12.64 H (1.78-5.38) K/mm3 Lymph # (Auto) 0.63 L (1.32-3.57) K/mm3 Emm[place] # (Auto) 0.41 (0.30-0.82) K/mm3 Eos # (Auto) 0.00 L (0.04-0.54) K/mm3 Baso # (Auto) 0.02 (0.01-0.08) K/mm3 Manual Slide Review Abnormal smear D-Dimer, Quantitative (0.19-0.50) mg/L Puncture Site ABG pH (7.35-7.45) ABG pCO2 (35.0-45.0) mmHg ABG pO2 (80.0-100.0) mmHg ABG HCO3 (22.0-26.0) meq/L ABG O2 Saturation (96.0-97.0) % ABG Base Excess (-2-2.0) A-a Gradient mmHg O2 Delivery Device Oxygen Flow Rate FiO2 (21.00-100.00) % Sodium (136-145) mEq/L Potassium (3.5-5.1) mEq/L Chloride (98-107) mEq/L Carbon Dioxide (21-32) mEq/L Anion Gap (5-15) BUN (7-18) mg/dL Creatinine (0.7-1.3) mg/dL Est Cr Clr Drug Dosing mL/min Estimated GFR (MDRD) (>60) mL/min BUN/Creatinine Ratio (14-18) Glucose (70-99) mg/dL Calcium (8.5-10.1) mg/dL Magnesium (1.8-2.4) mg/dL Total Bilirubin (0.2-1.0) mg/dL AST (15-37) U/L ALT (16-63) U/L Alkaline Phosphatase (46-116) U/L C-Reactive Protein (<1.0) mg/dL Total Protein (6.4-8.2) g/dl Albumin (3.4-5.0) g/dl Globulin gm/dL Albumin/Globulin Ratio (1-2) Urine Color Yellow (Yellow) Urine Appearance Clear (Clear) Urine pH 6.5 (5.0-8.0) Ur Specific [place] > or = 1.030 (1.005-1.030) Urine Protein 2+ H (Negative) Urine Glucose (UA) Negative (Negative) Urine Ketones 1+ H (Negative) Urine Occult Blood Negative (Negative) Urine Nitrite Negative (Negative) Urine Bilirubin 1+ H (Negative) Urine Urobilinogen 0.2 (0.2-1.0) Ur Leukocyte Esterase Negative (Negative) Urine RBC 0-5 (0-5) /hpf Urine WBC 0-5 (0-5) /hpf Ur Epithelial Cells Not seen (0-5) /hpf Urine Bacteria Moderate H (FEW) /hpf Urine Mucus Many H (FEW) /hpf Result Diagrams: 03/10/21 05:20 03/10/21 05:20 Sepsis Event Note - Evaluation Sepsis Screening Result: No Definite Risk - Focused Exam Vital Signs: Vital Signs Temp Pulse Resp BP Pulse Ox Pulse Ox Pulse Ox 03/10/21 11:47 36.4 C 68 38 H 142/86 H 03/10/21 07:58 89 L 03/10/21 07:44 36.4 C 93 48 H 147/80 H 73 L 03/10/21 05:44 77 L 03/10/21 03:46 90 L 03/10/21 03:42 36.4 C 70 36 H 108/60 Pulse Ox 03/10/21 11:47 03/10/21 07:58 03/10/21 07:44 73 L 03/10/21 05:44 03/10/21 03:46 03/10/21 03:42 - Problem List Review Problem List Initiated/Reviewed/Updated: Yes - My Orders Last 24 Hours: My Active Orders 03/09/21 14:38 CIWAA Assessment [RC] Q4HR 03/09/21 14:50 LORazepam [Ativan] 1 - 2 mg IVPUSH Q1H PRN 03/10/21 08:45 Dextrose 5% in Water 1,000 ml IV ASDIRECTED 03/10/21 12:00 Enoxaparin [Lovenox] 90 mg SUBCUT BID 03/11/21 05:00 CBC WITH AUTO DIFF [HEME] DAILY COMPREHENSIVE METABOLIC PN,CMP [CHEM] DAILY CRP [C-REACTIVE PROTEIN] [CHEM] DAILY 03/12/21 05:00 CBC WITH AUTO DIFF [HEME] DAILY COMPREHENSIVE METABOLIC PN,CMP [CHEM] DAILY CRP [C-REACTIVE PROTEIN] [CHEM] DAILY 03/13/21 05:00 CBC WITH AUTO DIFF [HEME] DAILY COMPREHENSIVE METABOLIC PN,CMP [CHEM] DAILY CRP [C-REACTIVE PROTEIN] [CHEM] DAILY 03/14/21 05:00 CBC WITH AUTO DIFF [HEME] DAILY COMPREHENSIVE METABOLIC PN,CMP [CHEM] DAILY CRP [C-REACTIVE PROTEIN] [CHEM] DAILY 03/15/21 09:00 dexAMETHasone 6 mg PO DAILY - Plan Plan:: 65-year-old male with COVID-19 pneumonia and history of DVT COVID-19 pneumonia Acute hypoxic respiratory failure * Pulse ox and oxygen therapy, high flow/BiPAP as needed to maintain oxygen saturation greater than 90% * CT angiogram which showed slightly prominent lymph nodes most likely residual from patient's parenchymal process. Diffuse parenchymal densities within both sides of the chest stable from prior chest x-ray. No findings of pulmonary e mbolus. * Initial elevation in troponin resolved and likely secondary to increased cardiac output and covid 19 infection * Initial CRP significantly elevated at 23. * CRP daily * Initially high lactic acid of 2.5 resolved to 1.5 with fluids and oxygenation * Continue remdesivir, * completed Rocephin and azithromycin. * Continue dexamethasone to 20mg daily on 03/08, will be followed by 6mg daily * He has elevation of creatinine. I would not like to order CTA chest. He had CTA chest on 03/06 - Negative for PE. Anyway, he is on Eliquis. * Eliquis is on hold today (03/10) due to being sleeping (he is on ativan for alcohol withdrawal) and lovenox 90mg bid was ordered. 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 * Last occurrence was 2 years ago. * This places him at a high risk for recurrent VTE considering Covid increases thrombosis * discontinued Lasix 40 mg every morning, presumably for dependent edema * His D-dimer 19.69 on 03/08 but it was 5.42 on 03/07. US Doppler showed DVT within the distal right superficial femoral or popliteal vein. * I do not think this is a case of treatment failure with Eliquis because I was reported that 1 dose was missed on 03/07. but he is now on lovenox 90mg bid Hypertension/hyperlipidemia Chronic alcohol abuse/alcohol withdrawal * drinks alcohol every day for 3 to 4 years. But as , he last use of alcohol was 15 days ago. * CIWA protocol was initiated. Plan * Admit to medical floor * HF/BIPAP PRN to keep SPO2 above 90%. Currently on high flow nasal cannula * I-S, prone positioning, RT, and Covid specific routine care * Albuterol, duo nebs as needed * Continue remdesivir, dexamethasone * baricitinib * Follow CBC, CMP, mag, and C-reactive protein. * Reconcile home meds and continue as appropriate * VTE prophylaxis Lovenox * CODE STATUS: DNR/DNI * Prognosis: Very guarded. Updated to Because of his significant worsening in oxygen saturations Dr. Mcintosh and I recommended baricitinib to her. Dr. Mcintosh and I spoke with Tre to provide information about baricitinib. Dr. Mcintosh and I offered the "fax sheet for patients and parents/caregivers, for baricitinib" to read and review. Dr. Mcintosh and I stated that therapy has been approved by an emergency use authorization process and has not fully been FDA reviewed or approved. Dr. Mcintosh and I shared potential risks from the therapy including increased risk for serious infections, anaphylaxis, and reaction to medication. Dr. Mcintosh and I discussed there are other potential treatment options that are currently not FDA approved to treat COVID-19. Offered opportunity to ask questions and all questions were answered. Tre voiced understanding and agreed to proceed with treatment. Disposition: Length of stay greater then 96 hours due to slow response to treatment. Prognosis: Very guarded
[2021-03-10] MEDS ORDERED: Azithromycin 500 MG in Sodium Chloride 0.9% 250 ML IV ONE (14:45)
[2021-03-10] MEDS ORDERED: Azithromycin 500 MG in Sodium Chloride 0.9% 250 ML IV SCH (14:45)
[2021-03-10] MEDS: Pantoprazole 40 MG Vial IVPUSH SCH (15:48)
[2021-03-10] MEDS: REMDESIVIR 100 MG in Sodium Chloride 0.9% 100 ML IV SCH (16:47)
[2021-03-11] MEDS: Albuterol 6.7 GM Inhaler INH SCH ×4 (04:30→21:00)
[2021-03-11] MEDS: LORazepam 2 MG/ML SDV IVPUSH PRN ×4 (05:48→14:39)
[2021-03-11] MEDS: Albuterol/Ipratropium 3.0-0.5 MG/3 ML Neb Soln NEB PRN ×2 (08:10→20:57)
[2021-03-11] MEDS: Pantoprazole 40 MG Vial IVPUSH SCH (08:38)
[2021-03-11] MEDS: Dexamethasone 10 MG/ML SDV IVPUSH SCH (08:39)
[2021-03-11] MEDS: Enoxaparin 100 MG/1 ML Syringe SUBCUT SCH ×2 (08:40→20:00)
[2021-03-11] MEDS: Fluticasone Propionate Nasal Spray 16 GM Bottle NASBOTH SCH (10:05)
[2021-03-11] MEDS: atorvaSTATin 20 MG Tab PO SCH (10:05)
[2021-03-11] MEDS: Dextrose 5% in Water 1,000 ML IV SCH (10:19)
--- NOTE | 2021-03-11 12:27 | PCM.PN ---
- General Info Date of Service: 03/11/21 Admission Dx/Problem (Free Text): Admission Diagnosis/Problem Admission Diagnosis/Problem Pneumonia Subjective Update: 65-year-old male unvaccinated for COVID-19 presented to the emergency department for the second time on 03/06/2021. He was seen initially on 02/25/2021 with symptoms including cough, low-grade fever, chills x 3 days. Today patient is sleeping. He is on CIWA protocol. He is confused when he is awake. He is unable to take his oral meds He is on CIWA protocol. CIWA score 17 last night. Pt is a daily drinker but he has not been drinking for almost 20 days. He is not a candidate for MRI since he is on BIPAP and other treatment. I will order CT of head without contrast. He is on BIPAP with 15L I do not want to start NG tube feeding for him because he would have a higher risk for aspiration since he is on BIPAP. Discussed with tobi about TPN, NG tube feeding and PEG feeding, who agreed to try with TPN first - Review of Systems Systems Review Comment:: General: Reports: agitation at times HEENT: Reports: No Symptoms Pulmonary: Reports: Shortness of Breath Cardiovascular: Reports: No Symptoms Gastrointestinal: Reports: No Symptoms Genitourinary: Reports: No Symptoms Musculoskeletal: Reports: No Symptoms Skin: Reports: No Symptoms Neurological: Reports: No Symptoms Psychiatric: Reports: No Symptoms - Patient Data Vitals - Most Recent: Last Vital Signs Temp 36.2 C 03/11/21 11:38 Pulse 82 03/11/21 11:39 Resp 34 H 03/11/21 11:39 BP 146/92 H 03/11/21 11:38 Pulse Ox 92 L 03/11/21 11:39 Weight - Most Recent: 91.671 kg I&O - Last 24 Hours: Intake & Output 03/10/21 03/11/21 03/11/21 22:59 06:59 14:59 Intake Total 700 425 Balance 700 425 Lab Results Last 24 Hours: Laboratory Results - last 24 hr 03/11/21 03/11/21 Range/Units 06:54 06:54 WBC 18.18 H (4.23-9.07) K/mm3 RBC 5.23 (4.63-6.08) M/mm3 Hgb 15.9 (13.7-17.5) gm/dl Hct 48.2 (40.1-51.0) % MCV 92.2 (79.0-92.2) fl MCH 30.4 (25.7-32.2) pg MCHC 33.0 (32.2-35.5) g/dl RDW Std Deviation 45.2 H (35.1-43.9) fL Plt Count 130 L (163-337) K/mm3 MPV 11.4 (9.4-12.3) fl Neut % (Auto) 92.8 H (34.0-67.9) % Lymph % (Auto) 3.5 L (21.8-53.1) % Baxter % (Auto) 3.0 L (5.3-12.2) % Eos % (Auto) 0 L (0.8-7.0) Baso % (Auto) 0.1 (0.1-1.2) % Neut # (Auto) 16.88 H (1.78-5.38) K/mm3 Lymph # (Auto) 0.63 L (1.32-3.57) K/mm3 Baxter # (Auto) 0.55 (0.30-0.82) K/mm3 Eos # (Auto) 0.00 L (0.04-0.54) K/mm3 Baso # (Auto) 0.01 (0.01-0.08) K/mm3 Manual Slide Review Abnormal smear Sodium 147 H (136-145) mEq/L Potassium 3.6 (3.5-5.1) mEq/L Chloride 112 H (98-107) mEq/L Carbon Dioxide 25 (21-32) mEq/L Anion Gap 13.6 (5-15) BUN 36 H (7-18) mg/dL Creatinine 1.3 (0.7-1.3) mg/dL Est Cr Clr Drug Dosing 53.35 mL/min Estimated GFR (MDRD) 55 (>60) mL/min BUN/Creatinine Ratio 27.7 H (14-18) Glucose 251 H (70-99) mg/dL Calcium 8.9 (8.5-10.1) mg/dL Total Bilirubin 0.8 (0.2-1.0) mg/dL AST 32 (15-37) U/L ALT 51 (16-63) U/L Alkaline Phosphatase 96 (46-116) U/L C-Reactive Protein 10.3 H* (<1.0) mg/dL Total Protein 6.3 L (6.4-8.2) g/dl Albumin 2.2 L (3.4-5.0) g/dl Globulin 4.1 gm/dL Albumin/Globulin Ratio 0.5 L (1-2) Med Orders - Current: Current Medications Acetaminophen (Acetaminophen 325 Mg Tab) 650 mg PO Q4H PRN PRN Reason: Pain (Mild 1-3)/fever Hydrocodone Bitart/Acetaminophen (Acetaminophen/Hydrocodone 325-5 Mg Tab) 1 tab PO Q4H PRN PRN Reason: Pain (moderate 4-6) Albuterol (Albuterol 6.7 Gm Inhaler) 0 gm INH Q6H [facility] Last Admin: 03/11/21 10:06 Dose: Not Given Documented by: Albuterol/Ipratropium (Albuterol/Ipratropium 3.0-0.5 Mg/3 Ml Neb Soln) 3 ml NEB Q4HRRT PRN PRN Reason: Shortness of Breath Last Admin: 03/11/21 08:10 Dose: 3 ml Documented by: Baricitinib (Baricitinib 2 Mg Tab) 2 mg PO Q24H [facility] Stop: 03/20/21 21:31 Last Admin: 03/10/21 22:43 Dose: Not Given Documented by: Dexamethasone (Dexamethasone 10 Mg/Ml Sdv) 20 mg IVPUSH DAILY [facility] Stop: 03/14/21 23:59 Last Admin: 03/11/21 08:39 Dose: 20 mg Documented by: Dexamethasone (Dexamethasone 4 Mg Tab) 6 mg PO DAILY [facility] Enoxaparin Sodium (Enoxaparin 100 Mg/1 Ml Syringe) 90 mg 1 mg/kg (90 mg) SUBCUT BID [facility] Last Admin: 03/11/21 08:40 Dose: 90 mg Documented by: Fluticasone Propionate (Fluticasone Propionate Nasal [place] 16 Gm Bottle) 0 gm NASBOTH DAILY [facility] Last Admin: 03/11/21 10:05 Dose: Not Given Documented by: Dextrose/Water (Dextrose 5% In Water) 1,000 mls @ 50 mls/hr IV ASDIRECTED [facility] Last Admin: 03/11/21 10:19 Dose: 50 mls/hr Documented by: Lorazepam (Lorazepam 2 Mg/Ml Sdv) 1 - 2 mg IVPUSH Q1H PRN; Protocol PRN Reason: Withdrawal Symptoms Last Admin: 03/11/21 10:06 Dose: 2 mg Documented by: Ondansetron HCl (Ondansetron 4 Mg/2 Ml Sdv) 4 mg IV Q6H PRN PRN Reason: Nausea/Vomiting Pantoprazole Sodium (Pantoprazole 40 Mg Vial) 40 mg IVPUSH DAILY [facility] Last Admin: 03/11/21 08:38 Dose: 40 mg Documented by: Sodium Chloride (Sodium Chloride 0.9% 10 Ml Syringe) 10 ml FLUSH ONETIME PRN PRN Reason: Keep Vein Open Last Admin: 03/09/21 18:57 Dose: 30 ml Documented by: Trazodone HCl (Trazodone 50 Mg Tab) 50 mg PO BEDTIME PRN PRN Reason: Insomnia Last Admin: 03/08/21 23:28 Dose: 50 mg Documented by: Discontinued Medications Apixaban (Apixaban 5 Mg Tab) 5 mg PO BID [facility] Last Admin: 03/10/21 09:26 Dose: Not Given Documented by: Aspirin (Aspirin 81 Mg Tab.Chew) 324 mg PO ONETIME ONE Stop: 03/06/21 12:46 Last Admin: 03/06/21 13:01 Dose: 324 mg Documented by: Atorvastatin Calcium (Atorvastatin 20 Mg Tab) 20 mg PO DAILY [facility] Last Admin: 03/11/21 10:05 Dose: Not Given Documented by: Calcium Carbonate/Glycine (Calcium Carbonate 500 Mg Tab.Chew) 1,000 mg PO ONE TIME ONE Stop: 03/07/21 09:38 Last Admin: 03/07/21 09:53 Dose: 1,000 mg Documented by: Dexamethasone (Dexamethasone 10 Mg/Ml Sdv) 6 mg IVPUSH DAILY [facility] Stop: 03/15/21 09:01 Last Admin: 03/08/21 08:29 Dose: 6 mg Documented by: Enoxaparin Sodium (Enoxaparin 40 Mg/0.4 Ml Syringe) 40 mg SUBCUT DAILY [facility] Enoxaparin Sodium (Enoxaparin 100 Mg/1 Ml Syringe) 90 mg SUBCUT ONETIME ONE Stop: 03/08/21 13:46 Last Admin: 03/08/21 14:20 Dose: 90 mg Documented by: Furosemide (Furosemide 40 Mg Tab) 40 mg PO DAILY [facility] Last Admin: 03/09/21 10:13 Dose: 40 mg Documented by: Sodium Chloride (Normal Saline) 1,000 mls @ 250 mls/hr IV ONETIME ONE Stop: 03/06/21 13:50 Last Admin: 03/06/21 09:55 Dose: 250 mls/hr Documented by: Ceftriaxone Sodium 1 gm/ (Sodium Chloride) 100 mls @ 200 mls/hr IV ONETIME ONE Stop: 03/06/21 11:04 Last Admin: 03/06/21 10:44 Dose: 200 mls/hr Documented by: Sodium Chloride (Normal Saline) 100 mls @ 60 mls/hr IV ASDIRECTED [facility] Last Admin: 03/06/21 11:10 Dose: 60 mls/hr Documented by: Sodium Chloride (Normal Saline) 1,000 mls @ 150 mls/hr IV ASDIRECTED [facility] Last Admin: 03/06/21 14:48 Dose: 150 mls/hr Documented by: Remdesivir 200 mg/ Sodium (Chloride) 250 mls @ 250 mls/hr IV ONETIME ONE Stop: 03/06/21 16:18 Last Admin: 03/06/21 16:56 Dose: 250 mls/hr Documented by: Azithromycin 500 mg/ Sodium (Chloride) 250 mls @ 250 mls/hr IV Q24H [facility] Last Admin: 03/09/21 15:54 Dose: 250 mls/hr Documented by: Remdesivir 100 mg/ Sodium (Chloride) 100 mls @ 100 mls/hr IV Q24H [facility] Stop: 03/10/21 18:14 Last Admin: 03/10/21 16:47 Dose: 100 mls/hr Documented by: Ceftriaxone Sodium 2 gm/ (Sodium Chloride) 100 mls @ 200 mls/hr IV Q24H [facility] Stop: 03/10/21 17:29 Last Admin: 03/09/21 17:10 Dose: 200 mls/hr Documented by: Azithromycin 500 mg/ Sodium (Chloride) 250 mls @ 250 mls/hr IV Q24H [facility] Azithromycin 500 mg/ Sodium (Chloride) 250 mls @ 250 mls/hr IV ONETIME ONE Stop: 03/10/21 15:44 Last Admin: 03/10/21 14:44 Dose: 250 mls/hr Documented by: Iopamidol (Iopamidol 755 Mg/Ml 100 Ml Bottle) 100 ml IVPUSH ONETIME ONE Stop: 03/06/21 10:41 Last Admin: 03/06/21 11:09 Dose: 100 ml Documented by: Lorazepam (Lorazepam 2 Mg/Ml Sdv) 1 mg IVPUSH Q6H PRN; Protocol PRN Reason: Anxiety Last Admin: 03/09/21 01:37 Dose: 1 mg Documented by: Lorazepam (Lorazepam 2 Mg/Ml Sdv) Confirm Administered Dose 2 mg .ROUTE .STK-MED ONE Stop: 03/09/21 01:26 Last Admin: 03/09/21 02:20 Dose: Not Given Documented by: Lorazepam (Lorazepam 2 Mg/Ml Sdv) 1 - 3 mg IVPUSH Q1H PRN; Protocol PRN Reason: Anxiety Lorazepam (Lorazepam 2 Mg/Ml Sdv) 1 - 3 mg IVPUSH Q1H PRN; Protocol PRN Reason: Anxiety Last Admin: 03/09/21 13:55 Dose: 1 mg Documented by: Pantoprazole Sodium (Pantoprazole 40 Mg Tab.Cr) 40 mg PO BIDAC [facility] Last Admin: 03/10/21 05:38 Dose: Not Given Documented by: - Exam Urinary Catheter Total Time: 0Days 10Hours Physical Findings Comments:: General: confusion and sleeping HEENT: Conjunctiva Clear, Mucosa Moist & Stirling Neck: Supple Lungs: Crackles (Bibasilar crackles). No: Normal Respiratory Effort (Increased rate) Cardiovascular: Regular Rate, Regular Rhythm GI/Abdominal Exam: Normal Bowel Sounds, Soft, Non-Tender, No Organomegaly, No Distention, No Abnormal Bruit, No Mass Back Exam: Normal Inspection Extremities: Normal Inspection, Normal Range of Motion, Non-Tender, No Pedal Edema, Normal Capillary Refill Skin: Warm, Dry, Intact Neuro Extensive - Mental Status: confusion, Normal Mood/Affect, Neuro Extensive - Motor, Sensory, Reflexes: CN II-XII Intact. No focal neurologic deficits Psychiatric: sleeping - Patient Data Lab Results Last 24 hrs: Laboratory Results - last 24 hr 03/11/21 03/11/21 Range/Units 06:54 06:54 WBC 18.18 H (4.23-9.07) K/mm3 RBC 5.23 (4.63-6.08) M/mm3 Hgb 15.9 (13.7-17.5) gm/dl Hct 48.2 (40.1-51.0) % MCV 92.2 (79.0-92.2) fl MCH 30.4 (25.7-32.2) pg MCHC 33.0 (32.2-35.5) g/dl RDW Std Deviation 45.2 H (35.1-43.9) fL Plt Count 130 L (163-337) K/mm3 MPV 11.4 (9.4-12.3) fl Neut % (Auto) 92.8 H (34.0-67.9) % Lymph % (Auto) 3.5 L (21.8-53.1) % Baxter % (Auto) 3.0 L (5.3-12.2) % Eos % (Auto) 0 L (0.8-7.0) Baso % (Auto) 0.1 (0.1-1.2) % Neut # (Auto) 16.88 H (1.78-5.38) K/mm3 Lymph # (Auto) 0.63 L (1.32-3.57) K/mm3 Baxter # (Auto) 0.55 (0.30-0.82) K/mm3 Eos # (Auto) 0.00 L (0.04-0.54) K/mm3 Baso # (Auto) 0.01 (0.01-0.08) K/mm3 Manual Slide Review Abnormal smear Sodium 147 H (136-145) mEq/L Potassium 3.6 (3.5-5.1) mEq/L Chloride 112 H (98-107) mEq/L Carbon Dioxide 25 (21-32) mEq/L Anion Gap 13.6 (5-15) BUN 36 H (7-18) mg/dL Creatinine 1.3 (0.7-1.3) mg/dL Est Cr Clr Drug Dosing 53.35 mL/min Estimated GFR (MDRD) 55 (>60) mL/min BUN/Creatinine Ratio 27.7 H (14-18) Glucose 251 H (70-99) mg/dL Calcium 8.9 (8.5-10.1) mg/dL Total Bilirubin 0.8 (0.2-1.0) mg/dL AST 32 (15-37) U/L ALT 51 (16-63) U/L Alkaline Phosphatase 96 (46-116) U/L C-Reactive Protein 10.3 H* (<1.0) mg/dL Total Protein 6.3 L (6.4-8.2) g/dl Albumin 2.2 L (3.4-5.0) g/dl Globulin 4.1 gm/dL Albumin/Globulin Ratio 0.5 L (1-2) Result Diagrams: 03/11/21 06:54 03/11/21 06:54 Sepsis Event Note - Evaluation Sepsis Screening Result: Possible Sepsis Risk - Focused Exam Vital Signs: Vital Signs Temp Pulse Pulse Resp BP Pulse Ox Pulse Ox 03/11/21 11:39 82 34 H 92 L 03/11/21 11:38 36.2 C 146/92 H 78 L 03/11/21 08:23 36.3 C 88 38 H 127/80 88 L 03/11/21 08:10 92 L 03/11/21 04:33 95 03/11/21 04:08 90 L 03/11/21 03:49 85 L 03/11/21 03:48 36.0 C L 71 36 H 119/77 03/11/21 01:16 93 L - Problem List Review Problem List Initiated/Reviewed/Updated: Yes - My Orders Last 24 Hours: My Active Orders 03/10/21 12:00 Enoxaparin [Lovenox] 90 mg SUBCUT BID 03/10/21 14:30 Pantoprazole [ProTONIX IV] 40 mg IVPUSH DAILY 03/11/21 Breakfast NPO [Nothing Per Oral Diet] [DIET] 03/11/21 12:15 Head wo Cont [CT] Routine 03/11/21 12:17 [place] Bedside Swallow Assessment [RC] ONETIME 03/12/21 05:00 CBC WITH AUTO DIFF [HEME] DAILY COMPREHENSIVE METABOLIC PN,CMP [CHEM] DAILY CRP [C-REACTIVE PROTEIN] [CHEM] DAILY 03/13/21 05:00 CBC WITH AUTO DIFF [HEME] DAILY COMPREHENSIVE METABOLIC PN,CMP [CHEM] DAILY CRP [C-REACTIVE PROTEIN] [CHEM] DAILY 03/14/21 05:00 CBC WITH AUTO DIFF [HEME] DAILY COMPREHENSIVE METABOLIC PN,CMP [CHEM] DAILY CRP [C-REACTIVE PROTEIN] [CHEM] DAILY 03/15/21 09:00 dexAMETHasone 6 mg PO DAILY - Plan Plan:: 65-year-old male with COVID-19 pneumonia and history of DVT COVID-19 pneumonia Acute hypoxic respiratory failure * Pulse ox and oxygen therapy, high flow/BiPAP as needed to maintain oxygen saturation greater than 90% * CT angiogram which showed slightly prominent lymph nodes most likely residual from patient's parenchymal process. Diffuse parenchymal densities within both sides of the chest stable from prior chest x-ray. No findings of pulmonary embolus. * Initial elevation in troponin resolved and likely secondary to increased cardiac output and covid 19 infection * Initial CRP significantly elevated at 23. * CRP daily * Initially high lactic acid of 2.5 resolved to 1.5 with fluids and oxygenation * Completed 5 day course of remdesivir, * completed Rocephin and azithromycin. * Continue dexamethasone to 20mg daily on 03/08 x 5 days, followed by 6mg daily * He has elevation of creatinine. I would not like to order CTA chest. He had CTA chest on 03/06 - Negative for PE. Anyway, he is on therapeutic anticoagulation. * Eliquis is on hold today (03/10) due to being sleeping (he is on ativan for alcohol withdrawal) and lovenox 90mg bid was ordered. 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 * Last occurrence was 2 years ago. * This places him at a high risk for recurrent VTE considering Covid increases thrombosis * discontinued Lasix 40 mg every morning, presumably for dependent edema * US Doppler showed DVT within the distal right superficial femoral or popliteal vein. * I do not think this is a case of treatment failure with Eliquis because I was reported that 1 dose was missed on 03/07. but he is now on lovenox 90mg bid Hypertension/hyperlipidemia Chronic alcohol abuse/alcohol withdrawal * drinks alcohol every day for 3 to 4 years. But as , he last use of alcohol was 15 days ago. * CIWA protocol was initiated. Plan * Admit to medical floor * HF/BIPAP PRN to keep SPO2 above 90%. Currently on high flow nasal cannula * I-S, prone positioning, RT, and Covid specific routine care * Albuterol, duo nebs as needed * Continue remdesivir, dexamethasone * baricitinib * Follow CBC, CMP, mag, and C-reactive protein. * Reconcile home meds and continue as appropriate * Will start TPN * VTE prophylaxis Lovenox * CODE STATUS: DNR/DNI * Prognosis: Very guarded. Updated to Because of his significant worsening in oxygen saturations Dr. Mcintosh and I recommended baricitinib to her. Dr. Mcintosh and I spoke with Tre to provide information about baricitinib. Dr. Mcintosh and I offered the "fax sheet for patients and parents/caregivers, for baricitinib" to read and review. Dr. Mcintosh and Misty stated that therapy has been approved by an emergency use authorization process and has not fully been FDA reviewed or approved. Dr. Mcintosh and I shared potential risks from the therapy including increased risk for serious infections, anaphylaxis, and reaction to medication. Dr. Mcintosh and I discussed there are other potential treatment options that are currently not FDA approved to treat COVID-19. Offered opportunity to ask questions and all questions were answered. Tre voiced understanding and agreed to proceed with treatment. Disposition: Length of stay greater then 96 hours due to slow response to treatment. Prognosis: Very guarded
--- NOTE | 2021-03-11 13:53 | CT ---
CT brain Technique: Multiple axial sections through the brain were obtained. Study had to be repeated due to motion artifact. Reconstructed coronal and sagittal images were obtained. Comparison: Prior head CT study of 08/25/18. Findings: Ventricles along with basal cisterns and sulci over the convexities are mildly prominent. No abnormal parenchymal densities are appreciated. No midline shift or mass-effect is definitely seen. Bone window settings show no definite acute osseous abnormality. Visualized paranasal sinuses and mastoid sinuses show nothing acute. Impression: 1. Motion artifact causing some diminished details. 2. Mild generalized atrophy is present. 3. No definite acute abnormality is appreciated. Diagnostic code #2
[2021-03-11] MEDS ORDERED: LORazepam 2 MG/ML SDV IM ONE (21:11)
[2021-03-12] MEDS: Albuterol 6.7 GM Inhaler INH SCH (03:41)
[2021-03-12] MEDS: Albuterol/Ipratropium 3.0-0.5 MG/3 ML Neb Soln NEB PRN ×3 (07:45→20:18)
[2021-03-12] MEDS ORDERED: Albuterol 6.7 GM Inhaler INH PRN (07:46)
[2021-03-12] MEDS: LORazepam 2 MG/ML SDV IVPUSH PRN ×2 (08:14→15:57)
[2021-03-12] MEDS ORDERED: Sodium Chloride 0.45% 1,000 ML IV SCH ×2 (08:30→11:45)
[2021-03-12] MEDS: Dexamethasone 10 MG/ML SDV IVPUSH SCH (08:48)
[2021-03-12] MEDS: Pantoprazole 40 MG Vial IVPUSH SCH (08:49)
[2021-03-12] MEDS: Fluticasone Propionate Nasal Spray 16 GM Bottle NASBOTH SCH (08:51)
[2021-03-12] MEDS ORDERED: Midazolam 1 MG/ML 2 ML SDV IVPUSH ONE (09:17)
--- NOTE | 2021-03-12 10:40 | CR ---
Chest: Numerous frontal views of the chest were obtained centered to the left side. PICC line is seen. Final position lies within a branch of the subclavian vein. Diffuse increased density is partially seen within both sides of chest. Heart size and mediastinum are stable. Bony structures are unchanged. Impression: 1. Final position of PICC line is within a branch of the left subclavian vein. 2. Other diffuse findings within the chest are stable. Diagnostic code #3
[2021-03-12] MEDS: Enoxaparin 100 MG/1 ML Syringe SUBCUT SCH ×2 (10:45→19:59)
--- NOTE | 2021-03-12 10:48 | PCM.PRNOTE ---
- Free Text/Narrative Note: PICC Line Insertion Date: 03/12/2021 Start: 0913 Stop: [address] Vizcarra for PICC placement for Total Parenteral Nutrition use. Chart reviewed. , Jo-Ann educated as patient is confused and agitated. Jo-Ann agrees to proceed. Consent signed over telephone with and witnessed with RN. Site cleansed with ChloraPrep. Left arm prepped with chloraprep x 3. Lidocaine 1% local anesthetic injected prior to 20 ga IV catheter insertion to left AC. Sterile gown, gloves and drape used. 5fr [place] NXT Catheter with TimeLab Tip Location System Double Lumen PICC inserted in the left arm at 38 cm at the skin per sterile technique with ultrasound guidance. Multiple attempts to get PICC line to sit above atrium but unsuccessful due to PICC turning near axillary. Ultimately PICC pulled back to 38 cm at skin. Total catheter length 45 cm. Secured with statlock. Flushes well with NaCl with good blood return from both lumens. Dressed with transparent dressing with CHG. PICC catheter remains out for measurement purposes. Chest Xray taken. Confirmation of PICC in left subclavian per radiology. REF [id number] LOT [id number] Renee Laguerre, ASSESSMENT ANALYST
--- NOTE | 2021-03-12 13:20 | PCM.PN ---
- General Info Date of Service: 03/12/21 Admission Dx/Problem (Free Text): Admission Diagnosis/Problem Admission Diagnosis/Problem Pneumonia Subjective Update: 65-year-old male unvaccinated for COVID-19 presented to the emergency department for the second time on 03/06/2021. He was seen initially on 02/25/2021 with symptoms including cough, low-grade fever, chills x 3 days. Today patient is sleeping. He is on CIWA protocol. He is confused when he is awake. He is unable to take his oral meds Pt is a daily drinker but he has not been drinking for almost 20 days. He is not a candidate for MRI since he is on BIPAP and other treatment. CT of head -no acute change Ammonia 21 He is on BIPAP with 15L Patient had a PICC line placement today. We will start him on TPN. - Review of Systems Systems Review Comment:: General: Reports: Confusion and sleeping HEENT: Reports: No Symptoms Pulmonary: Reports: Shortness of Breath Cardiovascular: Reports: No Symptoms Gastrointestinal: Reports: No Symptoms Genitourinary: Reports: No Symptoms Musculoskeletal: Reports: No Symptoms Skin: Reports: No Symptoms Neurological: Reports: No Symptoms Psychiatric: Reports: No Symptoms - Patient Data Vitals - Most Recent: Last Vital Signs Temp 36.3 C 03/12/21 12:23 Pulse 104 H 03/12/21 12:23 Resp 24 H 03/12/21 12:23 BP 153/95 H 03/12/21 12:23 Pulse Ox 91 L 03/12/21 12:23 Weight - Most Recent: 90.764 kg I&O - Last 24 Hours: Intake & Output 03/11/21 03/12/21 03/12/21 22:59 06:59 14:59 Intake Total 375 617 Balance 375 617 Lab Results Last 24 Hours: Laboratory Results - last 24 hr 03/12/21 03/12/21 03/12/21 Range/Units 06:10 06:10 06:10 WBC 17.24 H (4.23-9.07) K/mm3 RBC 5.60 (4.63-6.08) M/mm3 Hgb 16.9 (13.7-17.5) gm/dl Hct 51.7 H (40.1-51.0) % MCV 92.3 H (79.0-92.2) fl MCH 30.2 (25.7-32.2) pg MCHC 32.7 (32.2-35.5) g/dl RDW Std Deviation 45.5 H (35.1-43.9) fL Plt Count 138 L (163-337) K/mm3 MPV 12.0 (9.4-12.3) fl Neut % (Auto) 92.4 H (34.0-67.9) % Lymph % (Auto) 3.2 L (21.8-53.1) % Walton % (Auto) 3.5 L (5.3-12.2) % Eos % (Auto) 0.1 L (0.8-7.0) Baso % (Auto) 0.2 (0.1-1.2) % Neut # (Auto) 15.93 H (1.78-5.38) K/mm3 Lymph # (Auto) 0.56 L (1.32-3.57) K/mm3 Walton # (Auto) 0.61 (0.30-0.82) K/mm3 Eos # (Auto) 0.01 L (0.04-0.54) K/mm3 Baso # (Auto) 0.03 (0.01-0.08) K/mm3 Manual Slide Review Abnormal smear Sodium 148 H (136-145) mEq/L Potassium 3.8 (3.5-5.1) mEq/L Chloride 113 H (98-107) mEq/L Carbon Dioxide 28 (21-32) mEq/L Anion Gap 10.8 (5-15) BUN 35 H (7-18) mg/dL Creatinine 1.3 (0.7-1.3) mg/dL Est Cr Clr Drug Dosing 53.35 mL/min Estimated GFR (MDRD) 55 (>60) mL/min BUN/Creatinine Ratio 26.9 H (14-18) Glucose 258 H (70-99) mg/dL Calcium 8.5 (8.5-10.1) mg/dL Total Bilirubin 0.8 (0.2-1.0) mg/dL AST 26 (15-37) U/L ALT 41 (16-63) U/L Alkaline Phosphatase 90 (46-116) U/L Ammonia 21 (11-32) umol/L C-Reactive Protein 4.9 H* (<1.0) mg/dL Total Protein 6.3 L (6.4-8.2) g/dl Albumin 2.2 L (3.4-5.0) g/dl Globulin 4.1 gm/dL Albumin/Globulin Ratio 0.5 L (1-2) Giovanni Results Last 24 Hours: Microbiology 03/06/21 09:43 Blood Culture - Final Blood - Venous 03/06/21 09:35 Blood Culture - Final Blood Med Orders - Current: Current Medications Acetaminophen (Acetaminophen 325 Mg Tab) 650 mg PO Q4H PRN PRN Reason: Pain (Mild 1-3)/fever Hydrocodone Bitart/Acetaminophen (Acetaminophen/Hydrocodone 325-5 Mg Tab) 1 tab PO Q4H PRN PRN Reason: Pain (moderate 4-6) Albuterol (Albuterol 6.7 Gm Inhaler) 0 gm INH Q6H PRN PRN Reason: sob wheezing Albuterol/Ipratropium (Albuterol/Ipratropium 3.0-0.5 Mg/3 Ml Neb Soln) 3 ml NEB Q4HRRT PRN PRN Reason: Shortness of Breath Last Admin: 03/12/21 07:45 Dose: 3 ml Documented by: Baricitinib (Baricitinib 2 Mg Tab) 2 mg PO Q24H [facility] Stop: 03/20/21 21:31 Last Admin: 03/11/21 20:50 Dose: Not Given Documented by: Dexamethasone (Dexamethasone 10 Mg/Ml Sdv) 20 mg IVPUSH DAILY [facility] Stop: 03/14/21 23:59 Last Admin: 03/12/21 08:48 Dose: 20 mg Documented by: Dexamethasone (Dexamethasone 4 Mg Tab) 6 mg PO DAILY [facility] Enoxaparin Sodium (Enoxaparin 100 Mg/1 Ml Syringe) 90 mg 1 mg/kg (90 mg) SUBCUT BID [facility] Last Admin: 03/12/21 10:45 Dose: 90 mg Documented by: Fluticasone Propionate (Fluticasone Propionate Nasal [place] 16 Gm Bottle) 0 gm NASBOTH DAILY [facility] Last Admin: 03/12/21 08:51 Dose: Not Given Documented by: Sodium Chloride (Sodium Chloride 0.45%) 1,000 mls @ 65 mls/hr IV ASDIRECTED [facility] Stop: 03/12/21 14:00 Last Admin: 03/12/21 10:43 Dose: 65 mls/hr Documented by: Multivitamins/Minerals 10 ml/Amino Ac/Electrol/Dextrose/Calcium 1,010 mls @ 35 mls/hr IV TITRATE [facility] Stop: 03/13/21 13:29 Non-Formulary Medication (Nf Drug) 540 mls @ 45 mls/hr IVPUSH ONETIME ONE Stop: 03/13/21 12:29 Fat Emulsion Intravenous (Intralipid 20%) 500 mls @ 62.5 mls/hr IV MoWeFr [facility] Sodium Chloride (Sodium Chloride 0.45%) 1,000 mls @ 50 mls/hr IV ASDIRECTED [facility] Lorazepam (Lorazepam 2 Mg/Ml Sdv) 1 - 2 mg IVPUSH Q1H PRN; Protocol PRN Reason: Withdrawal Symptoms Last Admin: 03/12/21 08:14 Dose: 2 mg Documented by: Ondansetron HCl (Ondansetron 4 Mg/2 Ml Sdv) 4 mg IV Q6H PRN PRN Reason: Nausea/Vomiting Pantoprazole Sodium (Pantoprazole 40 Mg Vial) 40 mg IVPUSH DAILY [facility] Last Admin: 03/12/21 08:49 Dose: 40 mg Documented by: Pharmacy Consult (Pharmacy Consult Order) 1 each .XX DAILY PRN PRN Reason: LABS AND ELECTROLYTES Sodium Chloride (Sodium Chloride 0.9% 10 Ml Syringe) 10 ml FLUSH ONETIME PRN PRN Reason: Keep Vein Open Last Admin: 03/09/21 18:57 Dose: 30 ml Documented by: Trazodone HCl (Trazodone 50 Mg Tab) 50 mg PO BEDTIME PRN PRN Reason: Insomnia Last Admin: 03/08/21 23:28 Dose: 50 mg Documented by: Discontinued Medications Albuterol (Albuterol 6.7 Gm Inhaler) 0 gm INH Q6H [facility] Last Admin: 03/12/21 03:41 Dose: 2 puff Documented by: Apixaban (Apixaban 5 Mg Tab) 5 mg PO BID [facility] Last Admin: 03/10/21 09:26 Dose: Not Given Documented by: Aspirin (Aspirin 81 Mg Tab.Chew) 324 mg PO ONETIME ONE Stop: 03/06/21 12:46 Last Admin: 03/06/21 13:01 Dose: 324 mg Documented by: Atorvastatin Calcium (Atorvastatin 20 Mg Tab) 20 mg PO DAILY [facility] Last Admin: 03/11/21 10:05 Dose: Not Given Documented by: Calcium Carbonate/Glycine (Calcium Carbonate 500 Mg Tab.Chew) 1,000 mg PO ONETIME ONE Stop: 03/07/21 09:38 Last Admin: 03/07/21 09:53 Dose: 1,000 mg Documented by: Dexamethasone (Dexamethasone 10 Mg/Ml Sdv) 6 mg IVPUSH DAILY [facility] Stop: 03/15/21 09:01 Last Admin: 03/08/21 08:29 Dose: 6 mg Documented by: Enoxaparin Sodium (Enoxaparin 40 Mg/0.4 Ml Syringe) 40 mg SUBCUT DAILY [facility] Enoxaparin Sodium (Enoxaparin 100 Mg/1 Ml Syringe) 90 mg SUBCUT ONETIME ONE Stop: 03/08/21 13:46 Last Admin: 03/08/21 14:20 Dose: 90 mg Documented by: Furosemide (Furosemide 40 Mg Tab) 40 mg PO DAILY [facility] Last Admin: 03/09/21 10:13 Dose: 40 mg Documented by: Sodium Chloride (Normal Saline) 1,000 mls @ 250 mls/hr IV ONETIME ONE Stop: 03/06/21 13:50 Last Admin: 03/06/21 09:55 Dose: 250 mls/hr Documented by: Ceftriaxone Sodium 1 gm/ (Sodium Chloride) 100 mls @ 200 mls/hr IV ONETIME ONE Stop: 03/06/21 11:04 Last Admin: 03/06/21 10:44 Dose: 200 mls/hr Documented by: Sodium Chloride (Normal Saline) 100 mls @ 60 mls/hr IV ASDIRECTED [facility] Last Admin: 03/06/21 11:10 Dose: 60 mls/hr Documented by: Sodium Chloride (Normal Saline) 1,000 mls @ 150 mls/hr IV ASDIRECTED [facility] Last Admin: 03/06/21 14:48 Dose: 150 mls/hr Documented by: Remdesivir 200 mg/ Sodium (Chloride) 250 mls @ 250 mls/hr IV ONETIME ONE Stop: 03/06/21 16:18 Last Admin: 03/06/21 16:56 Dose: 250 mls/hr Documented by: Azithromycin 500 mg/ Sodium (Chloride) 250 mls @ 250 mls/hr IV Q24H [facility] Last Admin: 03/09/21 15:54 Dose: 250 mls/hr Documented by: Remdesivir 100 mg/ Sodium (Chloride) 100 mls @ 100 mls/hr IV Q24H [facility] Stop: 03/10/21 18:14 Last Admin: 03/10/21 16:47 Dose: 100 mls/hr Documented by: Ceftriaxone Sodium 2 gm/ (Sodium Chloride) 100 mls @ 200 mls/hr IV Q24H [facility] Stop: 03/10/21 17:29 Last Admin: 03/09/21 17:10 Dose: 200 mls/hr Documented by: Dextrose/Water (Dextrose 5% In Water) 1,000 mls @ 50 mls/hr IV ASDIRECTED [facility] Last Admin: 03/11/21 10:19 Dose: 50 mls/hr Documented by: Azithromycin 500 mg/ Sodium (Chloride) 250 mls @ 250 mls/hr IV Q24H [facility] Azithromycin 500 mg/ Sodium (Chloride) 250 mls @ 250 mls/hr IV ONETIME ONE Stop: 03/10/21 15:44 Last Admin: 03/10/21 14:44 Dose: 250 mls/hr Documented by: Sodium Chloride (Sodium Chloride 0.45%) 1,000 mls @ 50 mls/hr IV ASDIRECTED [facility] Iopamidol (Iopamidol 755 Mg/Ml 100 Ml Bottle) 100 ml IVPUSH ONETIME ONE Stop: 03/06/21 10:41 Last Admin: 03/06/21 11:09 Dose: 100 ml Documented by: Lorazepam (Lorazepam 2 Mg/Ml Sdv) 1 mg IVPUSH Q6H PRN; Protocol PRN Reason: Anxiety Last Admin: 03/09/21 01:37 Dose: 1 mg Documented by: Lorazepam (Lorazepam 2 Mg/Ml Sdv) Confirm Administered Dose 2 mg .ROUTE .STK-MED ONE Stop: 03/09/21 01:26 Last Admin: 03/09/21 02:20 Dose: Not Given Documented by: Lorazepam (Lorazepam 2 Mg/Ml Sdv) 1 - 3 mg IVPUSH Q1H PRN; Protocol PRN Reason: Anxiety Lorazepam (Lorazepam 2 Mg/Ml Sdv) 1 - 3 mg IVPUSH Q1H PRN; Protocol PRN Reason: Anxiety Last Admin: 03/09/21 13:55 Dose: 1 mg Documented by: Lorazepam (Lorazepam 2 Mg/Ml Sdv) 1 mg IM ONETIME ONE Stop: 03/11/21 21:12 Last Admin: 03/11/21 21:16 Dose: Not Given Documented by: Midazolam HCl (Midazolam 1 Mg/Ml 2 Ml Sdv) 1 - 2 mg IVPUSH ONETIME ONE Stop: 03/12/21 09:18 Last Admin: 03/12/21 09:38 Dose: 1 mg Documented by: Pantoprazole Sodium (Pantoprazole 40 Mg Tab.Cr) 40 mg PO BIDAC [facility] Last Admin: 03/10/21 05:38 Dose: Not Given Documented by: - Exam Central Line Total Time: 0Days 3Hours Urinary Catheter Total Time: 0Days 10Hours Physical Findings Comments:: General: confusion and sleeping HEENT: Conjunctiva Clear, Mucosa Moist & [address] Neck: Supple Lungs: Crackles (Bibasilar crackles). No: Normal Respiratory Effort (Increased rate) Cardiovascular: Regular Rate, Regular Rhythm GI/Abdominal Exam: Normal Bowel Sounds, Soft, Non-Tender, No Organomegaly, No Distention, No Abnormal Bruit, No Mass Back Exam: Normal Inspection Extremities: Normal Inspection, Normal Range of Motion, Non-Tender, No Pedal Edema, Normal Capillary Refill Skin: Warm, Dry, Intact Neuro Extensive - Mental Status: confusion, sleeping, Neuro Extensive - Motor, Sensory, Reflexes: Does not seem to have low focal neurologic deficits (difficulty completing due to confusion and being sleeping) Psychiatric: sleeping - Patient Data Lab Results Last 24 hrs: Laboratory Results - last 24 hr 03/12/21 03/12/21 03/12/21 Range/Units 06:10 06:10 06:10 WBC 17.24 H (4.23-9.07) K/mm3 RBC 5.60 (4.63-6.08) M/mm3 Hgb 16.9 (13.7-17.5) gm/dl Hct 51.7 H (40.1-51.0) % MCV 92.3 H (79.0-92.2) fl MCH 30.2 (25.7-32.2) pg MCHC 32.7 (32.2-35.5) g/dl RDW Std Deviation 45.5 H (35.1-43.9) fL Plt Count 138 L (163-337) K/mm3 MPV 12.0 (9.4-12.3) fl Neut % (Auto) 92.4 H (34.0-67.9) % Lymph % (Auto) 3.2 L (21.8-53.1) % Walton % (Auto) 3.5 L (5.3-12.2) % Eos % (Auto) 0.1 L (0.8-7.0) Baso % (Auto) 0.2 (0.1-1.2) % Neut # (Auto) 15.93 H (1.78-5.38) K/mm3 Lymph # (Auto) 0.56 L (1.32-3.57) K/mm3 Walton # (Auto) 0.61 (0.30-0.82) K/mm3 Eos # (Auto) 0.01 L (0.04-0.54) K/mm3 Baso # (Auto) 0.03 (0.01-0.08) K/mm3 Manual Slide Review Abnormal smear Sodium 148 H (136-145) mEq/L Potassium 3.8 (3.5-5.1) mEq/L Chloride 113 H (98-107) mEq/L Carbon Dioxide 28 (21-32) mEq/L Anion Gap 10.8 (5-15) BUN 35 H (7-18) mg/dL Creatinine 1.3 (0.7-1.3) mg/dL Est Cr Clr Drug Dosing 53.35 mL/min Estimated GFR (MDRD) 55 (>60) mL/min BUN/Creatinine Ratio 26.9 H (14-18) Glucose 258 H (70-99) mg/dL Calcium 8.5 (8.5-10.1) mg/dL Total Bilirubin 0.8 (0.2-1.0) mg/dL AST 26 (15-37) U/L ALT 41 (16-63) U/L Alkaline Phosphatase 90 (46-116) U/L Ammonia 21 (11-32) umol/L C-Reactive Protein 4.9 H* (<1.0) mg/dL Total Protein 6.3 L (6.4-8.2) g/dl Albumin 2.2 L (3.4-5.0) g/dl Globulin 4.1 gm/dL Albumin/Globulin Ratio 0.5 L (1-2) Result Diagrams: 03/12/21 06:10 03/12/21 06:10 Giovanni Results Last 24 hrs: Microbiology 03/06/21 09:43 Blood Culture - Final Blood - Venous 03/06/21 09:35 Blood Culture - Final Blood Sepsis Event Note - Evaluation Sepsis Screening Result: No Definite Risk - Focused Exam Vital Signs: Vital Signs Temp Temp Pulse Pulse Resp BP BP 03/12/21 12:23 36.3 C 104 H 24 H 153/95 H 03/12/21 09:13 158/98 H 03/12/21 08:36 159/109 H 03/12/21 08:34 36.1 C 114 H 28 H 163/109 H 03/12/21 07:47 03/12/21 03:48 36.6 C 87 30 H 149/75 H 03/12/21 03:41 Pulse Ox Pulse Ox 03/12/21 12:23 91 L 03/12/21 09:13 03/12/21 08:36 03/12/21 08:34 92 L 03/12/21 07:47 90 L 03/12/21 03:48 85 L 03/12/21 03:41 90 L - Problem List Review Problem List Initiated/Reviewed/Updated: Yes - My Orders Last 24 Hours: My Active Orders 03/11/21 17:30 BIPAP Adult [RT BiPAP/CPAP] [RC] ASDIRECTED 03/12/21 07:46 Albuterol [Proventil HFA] 0 gm INH Q6H PRN 03/12/21 08:30 Sodium Chloride 0.45% 1,000 ml IV ASDIRECTED 03/12/21 09:00 Central Line PICC Insertion [Central Venous Line Insertion] [OM.PC] Routine 03/12/21 11:18 Pharmacy Consult [Consult to Pharmacy] 1 each .XX DAILY PRN 03/12/21 13:30 Fat Emulsion [Intralipid 20%] 500 ml IV MoWeFr MVI, Adult with Vitamin K [Infuvite Adult] 10 ml AA 5%/Calcium/D20W/Lytes [Clinimix E 10/10] 1,000 ml IV TITRATE Sodium Chloride 0.45% 1,000 ml IV ASDIRECTED 03/13/21 00:30 Non-Formulary Medication [NF Drug] 1 each IVPUSH ONETIME 03/13/21 05:00 CBC WITH AUTO DIFF [HEME] DAILY COMPREHENSIVE METABOLIC PN,CMP [CHEM] DAILY CRP [C-REACTIVE PROTEIN] [CHEM] DAILY 03/13/21 05:11 MAGNESIUM [CHEM] AM PHOSPHORUS [CHEM] AM 03/14/21 05:00 CBC WITH AUTO DIFF [HEME] DAILY COMPREHENSIVE METABOLIC PN,CMP [CHEM] DAILY CRP [C-REACTIVE PROTEIN] [CHEM] DAILY 03/14/21 05:11 MAGNESIUM [CHEM] AM PHOSPHORUS [CHEM] AM 03/15/21 09:00 dexAMETHasone 6 mg PO DAILY - Plan Plan:: 65-year-old male with COVID-19 pneumonia and history of DVT COVID-19 pneumonia Acute hypoxic respiratory failure * Pulse ox and oxygen therapy, high flow/BiPAP as needed to maintain oxygen saturation greater than 90% * CT angiogram which showed slightly prominent lymph nodes most likely residual from patient's parenchymal process. Diffuse parenchymal densities within both sides of the chest stable from prior chest x-ray. No findings of pulmonary embolus. * Initial elevation in troponin resolved and likely secondary to increased cardiac output and covid 19 infection * Initial CRP significantly elevated at 23. * CRP daily * Initially high lactic acid of 2.5 resolved to 1.5 with fluids and oxygenation * Completed 5 day course of remdesivir, * completed Rocephin and azithromycin. * Continue dexamethasone to 20mg daily on 03/08 x 5 days, followed by 6mg daily * He has elevation of creatinine. I would not like to order CTA chest. He had CTA chest on 03/06 - Negative for PE. Anyway, he is on therapeutic anticoagulation. * Eliquis is on hold (03/10) due to difficulty taking pills (sleeping and confusion) low (he is on ativan for alcohol withdrawal) and lovenox 90mg bid was ordered. 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 * Last occurrence was 2 years ago. * This places him at a high risk for recurrent VTE considering Covid increases thrombosis * US Doppler showed DVT within the distal right superficial femoral or popliteal vein. * I do not think this is a case of treatment failure with Eliquis because I was reported that 1 dose was missed on 03/07. but he is now on lovenox 90mg bid Hypertension/hyperlipidemia Chronic alcohol abuse/alcohol withdrawal * drinks alcohol every day for 3 to 4 years. But as , he last use of alcohol was 15-20 days ago. * CIWA protocol was initiated. * CT of head negative for acute change * MRI of brain: Unable to performed * Ammonia 21 * I would like to place him on one-to-one and then hold Ativan to see how he does. But we have short staff today. * urine drug screen was not done in the ER. But do not see he has any daniel of substance abuse * He may need a neurology * Continue to monitor Plan * Admit to medical floor * HF/BIPAP PRN to keep SPO2 above 90%. Currently on high flow nasal cannula * I-S, prone positioning, RT, and Covid specific routine care * Albuterol, duo nebs as needed * Continue dexamethasone * Continue baricitinib * Completed remdesivir * Follow CBC, CMP, mag, and C-reactive protein. * Reconcile home meds and continue as appropriate * Will start TPN * VTE prophylaxis Lovenox * CODE STATUS: DNR/DNI * Prognosis: Very guarded. Updated to Because of his significant worsening in oxygen saturations Dr. Mcintosh and I recommended baricitinib to her. Dr. Mcintosh and I spoke with Tre to provide information about baricitinib. Dr. Micntosh and I offered the "fax sheet for patients and parents/caregivers, for baricitinib" to read and review. Dr. Mcintosh and Misty stated that therapy has been approved by an emergency use authorization process and has not fully been FDA reviewed or approved. Dr. Mcintosh and I shared potential risks from the therapy including increased risk for serious infections, anaphylaxis, and reaction to medication. Dr. Mcintosh and I discussed there are other potential treatment options that are currently not FDA approved to treat COVID-19. Offered opportunity to ask questions and all questions were answered. Tre voiced understanding and agreed to proceed with treatment. Disposition: Length of stay greater then 96 hours due to slow response to treatment. Prognosis: Very guarded
[2021-03-12] MEDS ORDERED: MVI, Adult with Vitamin K 10 ML in AA 5%/Calcium/D20W/Lytes 1,000 ML IV SCH ×2 (13:30)
[2021-03-12] MEDS: Fat Emulsion 500 ML IV SCH (13:37)
[2021-03-13] MEDS ORDERED: Non-Formulary Medication 1 EACH IVPUSH ONE (00:30)
[2021-03-13] MEDS: LORazepam 2 MG/ML SDV IVPUSH PRN ×3 (02:32→20:53)
[2021-03-13] MEDS: Sodium Chloride 0.45% 1,000 ML IV SCH (05:08)
[2021-03-13] MEDS: Albuterol/Ipratropium 3.0-0.5 MG/3 ML Neb Soln NEB PRN ×4 (05:12→20:38)
[2021-03-13] MEDS ORDERED: Bisacodyl 10 MG Supp RECTAL ONE (07:00)
[2021-03-13] MEDS: Dexamethasone 10 MG/ML SDV IVPUSH SCH (09:17)
[2021-03-13] MEDS: Fluticasone Propionate Nasal Spray 16 GM Bottle NASBOTH SCH (09:18)
[2021-03-13] MEDS: Pantoprazole 40 MG Vial IVPUSH SCH (09:19)
[2021-03-13] MEDS: Enoxaparin 100 MG/1 ML Syringe SUBCUT SCH ×3 (09:19→21:20)
[2021-03-13] MEDS: Morphine 2 MG/ML SYRINGE IVPUSH PRN ×5 (11:11→20:33)
--- NOTE | 2021-03-13 12:07 | PCM.PN ---
- General Info Date of Service: 03/13/21 Admission Dx/Problem (Free Text): Admission Diagnosis/Problem Admission Diagnosis/Problem Pneumonia Subjective Update: 65-year-old male unvaccinated for COVID-19 presented to the emergency department for the second time on 03/06/2021. He was seen initially on 02/25/2021 with symptoms including cough, low-grade fever, chills x 3 days. Is currently on TPN, but his sodium continues to increase. Respiratory effort has increased and he is in the upper 80s for respiratory rate. He continues on BiPAP with pressures of 18/12 with 15 L bled in. Oxygen saturations maintained in the mid to upper 80s. Patient is not responding to verbal commands. He does withdraw from pain though. I called his to let her know his condition. He is deteriorating and unlikely to survive. He is a DNR/DNI and at the rate of his respirations he is not likely to be able to maintain that effort. I explained to her that she should come in and see her and consider comfort measures. She called me back with who I believe was his daughter in a conference call who berated me for not having him on ivermectin. I explained to her that that was out of my control and I was unable to even order if I wanted to. Also, she blamed me for not allowing his in the hospital in the early stages of his admission and that there are "several studies" that show benefit from having a loved one in the room. I again explained to her that this was beyond my control. - Review of Systems General: Reports: Other (Obtunded) - Patient Data Vitals - Most Recent: Last Vital Signs Temp 96.8 F L 03/13/21 03:41 Pulse 98 03/13/21 03:41 Resp 48 H 03/13/21 11:58 BP 162/88 H 03/13/21 03:41 Pulse Ox 877 H 03/13/21 11:58 Weight - Most Recent: 201 lb 4.8 oz I&O - Last 24 Hours: Intake & Output 03/12/21 03/13/21 03/13/21 22:59 06:59 14:59 Intake Total 849 1366 Balance 849 1366 Lab Results Last 24 Hours: Laboratory Results - last 24 hr 03/13/21 03/13/21 03/13/21 Range/Units 08:28 08:28 08:28 WBC 22.83 H (4.23-9.07) K/mm3 RBC 5.76 (4.63-6.08) M/mm3 Hgb 17.5 (13.7-17.5) gm/dl Hct 54.1 H (40.1-51.0) % MCV 93.9 H (79.0-92.2) fl MCH 30.4 (25.7-32.2) pg MCHC 32.3 (32.2-35.5) g/dl RDW Std Deviation 47.4 H (35.1-43.9) fL Plt Count 119 L (163-337) K/mm3 MPV 11.9 (9.4-12.3) fl Neut % (Auto) 93.2 H (34.0-67.9) % Lymph % (Auto) 3.5 L (21.8-53.1) % [place] % (Auto) 2.4 L (5.3-12.2) % Eos % (Auto) 0 L (0.8-7.0) Baso % (Auto) 0.1 (0.1-1.2) % Neut # (Auto) 21.28 H (1.78-5.38) K/mm3 Lymph # (Auto) 0.79 L (1.32-3.57) K/mm3 [place] # (Auto) 0.55 (0.30-0.82) K/mm3 Eos # (Auto) 0.00 L (0.04-0.54) K/mm3 Baso # (Auto) 0.02 (0.01-0.08) K/mm3 Manual Slide Review Abnormal smear Sodium 152 H (136-145) mEq/L Potassium 3.9 (3.5-5.1) mEq/L Chloride 116 H (98-107) mEq/L Carbon Dioxide 26 (21-32) mEq/L Anion Gap 13.9 (5-15) BUN 30 H (7-18) mg/dL Creatinine 1.3 (0.7-1.3) mg/dL Est Cr Clr Drug Dosing 53.35 mL/min Estimated GFR (MDRD) 55 (>60) mL/min BUN/Creatinine Ratio 23.1 H (14-18) Glucose 287 H (70-99) mg/dL Calcium 8.9 (8.5-10.1) mg/dL Phosphorus 3.6 (2.6-4.7) mg/dL Magnesium 2.7 H (1.8-2.4) mg/dL Total Bilirubin 1.1 H (0.2-1.0) mg/dL AST 31 (15-37) U/L ALT 37 (16-63) U/L Alkaline Phosphatase 98 (46-116) U/L C-Reactive Protein 7.0 H* (<1.0) mg/dL Total Protein 6.6 (6.4-8.2) g/dl Albumin 2.3 L (3.4-5.0) g/dl Globulin 4.3 gm/dL Albumin/Globulin Ratio 0.5 L (1-2) Med Orders - Current: Current Medications Acetaminophen (Acetaminophen 325 Mg Tab) 650 mg PO Q4H PRN PRN Reason: Pain (Mild 1-3)/fever Hydrocodone Bitart/Acetaminophen (Acetaminophen/Hydrocodone 325-5 Mg Tab) 1 tab PO Q4H PRN PRN Reason: Pain (moderate 4-6) Albuterol (Albuterol 6.7 Gm Inhaler) 0 gm INH Q6H PRN PRN Reason: sob wheezing Albuterol/Ipratropium (Albuterol/Ipratropium 3.0-0.5 Mg/3 Ml Neb Soln) 3 ml NEB Q4HRRT PRN PRN Reason: Shortness of Breath Last Admin: 03/13/21 07:54 Dose: 3 ml Documented by: Baricitinib (Baricitinib 2 Mg Tab) 2 mg PO Q24H [facility] Stop: 03/20/21 21:31 Last Admin: 03/12/21 21:00 Dose: Not Given Documented by: Dexamethasone (Dexamethasone 10 Mg/Ml Sdv) 20 mg IVPUSH DAILY [facility] Stop: 03/14/21 23:59 Last Admin: 03/13/21 09:17 Dose: 20 mg Documented by: Dexamethasone (Dexamethasone 4 Mg Tab) 6 mg PO DAILY [facility] Enoxaparin Sodium (Enoxaparin 100 Mg/1 Ml Syringe) 90 mg 1 mg/kg (90 mg) SUBCUT BID [facility] Last Admin: 03/13/21 09:19 Dose: 90 mg Documented by: Fluticasone Propionate (Fluticasone Propionate Nasal [place] 16 Gm Bottle) 0 gm NASBOTH DAILY [facility] Last Admin: 03/13/21 09:18 Dose: Not Given Documented by: Multivitamins/Minerals 10 ml/Amino Ac/Electrol/Dextrose/Calcium 1,010 mls @ 35 mls/hr IV TITRATE [facility] Stop: 03/13/21 13:29 Last Admin: 03/12/21 13:37 Dose: 35 mls/hr Documented by: Non-Formulary Medication (Nf Drug) 540 mls @ 45 mls/hr IVPUSH ONETIME ONE Stop: 03/13/21 12:29 Last Admin: 03/13/21 00:30 Dose: 45 mls/hr Documented by: Fat Emulsion Intravenous (Intralipid 20%) 500 mls @ 62.5 mls/hr IV MoWeFr [facility] Last Admin: 03/12/21 13:37 Dose: 62.5 mls/hr Documented by: Sodium Chloride (Sodium Chloride 0.45%) 1,000 mls @ 50 mls/hr IV ASDIRECTED [facility] Last Admin: 03/13/21 05:08 Dose: 50 mls/hr Documented by: Lorazepam (Lorazepam 2 Mg/Ml Sdv) 1 mg IVPUSH Q6HR PRN PRN Reason: tachypnea/anxiety Last Admin: 03/13/21 09:20 Dose: 1 mg Documented by: Morphine Sulfate (Morphine 2 Mg/Ml Syringe) 2 mg IVPUSH Q1H PRN PRN Reason: Pain Last Admin: 03/13/21 11:11 Dose: 2 mg Documented by: Ondansetron HCl (Ondansetron 4 Mg/2 Ml Sdv) 4 mg IV Q6H PRN PRN Reason: Nausea/Vomiting Pantoprazole Sodium (Pantoprazole 40 Mg Vial) 40 mg IVPUSH DAILY [facility] Last Admin: 03/13/21 09:19 Dose: 40 mg Documented by: Pharmacy Consult (Pharmacy Consult Order) 1 each .XX DAILY PRN PRN Reason: LABS AND ELECTROLYTES Sodium Chloride (Sodium Chloride 0.9% 10 Ml Syringe) 10 ml FLUSH ONETIME PRN PRN Reason: Keep Vein Open Last Admin: 03/09/21 18:57 Dose: 30 ml Documented by: Trazodone HCl (Trazodone 50 Mg Tab) 50 mg PO BEDTIME PRN PRN Reason: Insomnia Last Admin: 03/08/21 23:28 Dose: 50 mg Documented by: Discontinued Medications Albuterol (Albuterol 6.7 Gm Inhaler) 0 gm INH Q6H [facility] Last Admin: 03/12/21 03:41 Dose: 2 puff Documented by: Apixaban (Apixaban 5 Mg Tab) 5 mg PO BID [facility] Last Admin: 03/10/21 09:26 Dose: Not Given Documented by: Aspirin (Aspirin 81 Mg Tab.Chew) 324 mg PO ONETIME ONE Stop: 03/06/21 12:46 Last Admin: 03/06/21 13:01 Dose: 324 mg Documented by: Atorvastatin Calcium (Atorvastatin 20 Mg Tab) 20 mg PO DAILY [facility] Last Admin: 03/11/21 10:05 Dose: Not Given Documented by: Bisacodyl (Bisacodyl 10 Mg Supp) 10 mg RECTAL ONETIME ONE Stop: 03/13/21 07:01 Last Admin: 03/13/21 07:51 Dose: Not Given Documented by: Calcium Carbonate/Glycine (Calcium Carbonate 500 Mg Tab.Chew) 1,000 mg PO ONETI ME ONE Stop: 03/07/21 09:38 Last Admin: 03/07/21 09:53 Dose: 1,000 mg Documented by: Dexamethasone (Dexamethasone 10 Mg/Ml Sdv) 6 mg IVPUSH DAILY [facility] Stop: 03/15/21 09:01 Last Admin: 03/08/21 08:29 Dose: 6 mg Documented by: Enoxaparin Sodium (Enoxaparin 40 Mg/0.4 Ml Syringe) 40 mg SUBCUT DAILY [facility] Enoxaparin Sodium (Enoxaparin 100 Mg/1 Ml Syringe) 90 mg SUBCUT ONETIME ONE Stop: 03/08/21 13:46 Last Admin: 03/08/21 14:20 Dose: 90 mg Documented by: Furosemide (Furosemide 40 Mg Tab) 40 mg PO DAILY [facility] Last Admin: 03/09/21 10:13 Dose: 40 mg Documented by: Sodium Chloride (Normal Saline) 1,000 mls @ 250 mls/hr IV ONETIME ONE Stop: 03/06/21 13:50 Last Admin: 03/06/21 09:55 Dose: 250 mls/hr Documented by: Ceftriaxone Sodium 1 gm/ (Sodium Chloride) 100 mls @ 200 mls/hr IV ONETIME ONE Stop: 03/06/21 11:04 Last Admin: 03/06/21 10:44 Dose: 200 mls/hr Documented by: Sodium Chloride (Normal Saline) 100 mls @ 60 mls/hr IV ASDIRECTED [facility] Last Admin: 03/06/21 11:10 Dose: 60 mls/hr Documented by: Sodium Chloride (Normal Saline) 1,000 mls @ 150 mls/hr IV ASDIRECTED [facility] Last Admin: 03/06/21 14:48 Dose: 150 mls/hr Documented by: Remdesivir 200 mg/ Sodium (Chloride) 250 mls @ 250 mls/hr IV ONETIME ONE Stop: 03/06/21 16:18 Last Admin: 03/06/21 16:56 Dose: 250 mls/hr Documented by: Azithromycin 500 mg/ Sodium (Chloride) 250 mls @ 250 mls/hr IV Q24H [facility] Last Admin: 03/09/21 15:54 Dose: 250 mls/hr Documented by: Remdesivir 100 mg/ Sodium (Chloride) 100 mls @ 100 mls/hr IV Q24H [facility] Stop: 03/10/21 18:14 Last Admin: 03/10/21 16:47 Dose: 100 mls/hr Documented by: Ceftriaxone Sodium 2 gm/ (Sodium Chloride) 100 mls @ 200 mls/hr IV Q24H [facility] Stop: 03/10/21 17:29 Last Admin: 03/09/21 17:10 Dose: 200 mls/hr Documented by: Dextrose/Water (Dextrose 5% In Water) 1,000 mls @ 50 mls/hr IV ASDIRECTED [facility] Last Admin: 03/11/21 10:19 Dose: 50 mls/hr Documented by: Azithromycin 500 mg/ Sodium (Chloride) 250 mls @ 250 mls/hr IV Q24H [facility] Azithromycin 500 mg/ Sodium (Chloride) 250 mls @ 250 mls/hr IV ONETIME ONE Stop: 03/10/21 15:44 Last Admin: 03/10/21 14:44 Dose: 250 mls/hr Documented by: Sodium Chloride (Sodium Chloride 0.45%) 1,000 mls @ 65 mls/hr IV ASDIRECTED [facility] Stop: 03/12/21 14:00 Last Admin: 03/12/21 10:43 Dose: 65 mls/hr Documented by: Sodium Chloride (Sodium Chloride 0.45%) 1,000 mls @ 50 mls/hr IV ASDIRECTED [facility] Iopamidol (Iopamidol 755 Mg/Ml 100 Ml Bottle) 100 ml IVPUSH ONETIME ONE Stop: 03/06/21 10:41 Last Admin: 03/06/21 11:09 Dose: 100 ml Documented by: Lorazepam (Lorazepam 2 Mg/Ml Sdv) 1 mg IVPUSH Q6H PRN; Protocol PRN Reason: Anxiety Last Admin: 03/09/21 01:37 Dose: 1 mg Documented by: Lorazepam (Lorazepam 2 Mg/Ml Sdv) Confirm Administered Dose 2 mg .ROUTE .STK-MED ONE Stop: 03/09/21 01:26 Last Admin: 03/09/21 02:20 Dose: Not Given Documented by: Lorazepam (Lorazepam 2 Mg/Ml Sdv) 1 - 3 mg IVPUSH Q1H PRN; Protocol PRN Reason: Anxiety Lorazepam (Lorazepam 2 Mg/Ml Sdv) 1 - 3 mg IVPUSH Q1H PRN; Protocol PRN Reason: Anxiety Last Admin: 03/09/21 13:55 Dose: 1 mg Documented by: Lorazepam (Lorazepam 2 Mg/Ml Sdv) 1 - 2 mg IVPUSH Q1H PRN; Protocol PRN Reason: Withdrawal Symptoms Last Admin: 03/12/21 08:14 Dose: 2 mg Documented by: Lorazepam (Lorazepam 2 Mg/Ml Sdv) 1 mg IM ONETIME ONE Stop: 03/11/21 21:12 Last Admin: 03/11/21 21:16 Dose: Not Given Documented by: Midazolam HCl (Midazolam 1 Mg/Ml 2 Ml Sdv) 1 - 2 mg IVPUSH ONETIME ONE Stop: 03/12/21 09:18 Last Admin: 03/12/21 09:38 Dose: 1 mg Documented by: Pantoprazole Sodium (Pantoprazole 40 Mg Tab.Cr) 40 mg PO BIDAC [facility] Last Admin: 03/10/21 05:38 Dose: Not Given Documented by: - Exam Quality Assessment: No: Supplemental Oxygen (BiPAP) Central Line Total Time: 0Days 18Hours Urinary Catheter Total Time: 0Days 10Hours General: Obtunded HEENT: Pupils Equal Neck: Supple Lungs: No: Normal Respiratory Effort (Increased rate in the 40s with abdominal breathing and retractions. Tracheal tugging.) Cardiovascular: Regular Rate, Regular Rhythm, Irregular Rhythm GI/Abdominal Exam: Soft, Non-Tender, Abnormal Bowel Sounds (Decreased). No: Normal Bowel Sounds Extremities: Normal Inspection, Pedal Edema (1+ on the left and 2+ on the right) Skin: Warm, Dry, Intact - Patient Data Lab Results Last 24 hrs: Laboratory Results - last 24 hr 03/13/21 03/13/21 03/13/21 Range/Units 08:28 08:28 08:28 WBC 22.83 H (4.23-9.07) K/mm3 RBC 5.76 (4.63-6.08) M/mm3 Hgb 17.5 (13.7-17.5) gm/dl Hct 54.1 H (40.1-51.0) % MCV 93.9 H (79.0-92.2) fl MCH 30.4 (25.7-32.2) pg MCHC 32.3 (32.2-35.5) g/dl RDW Std Deviation 47.4 H (35.1-43.9) fL Plt Count 119 L (163-337) K/mm3 MPV 11.9 (9.4-12.3) fl Neut % (Auto) 93.2 H (34.0-67.9) % Lymph % (Auto) 3.5 L (21.8-53.1) % [place] % (Auto) 2.4 L (5.3-12.2) % Eos % (Auto) 0 L (0.8-7.0) Baso % (Auto) 0.1 (0.1-1.2) % Neut # (Auto) 21.28 H (1.78-5.38) K/mm3 Lymph # (Auto) 0.79 L (1.32-3.57) K/mm3 [place] # (Auto) 0.55 (0.30-0.82) K/mm3 Eos # (Auto) 0.00 L (0.04-0.54) K/mm3 Baso # (Auto) 0.02 (0.01-0.08) K/mm3 Manual Slide Review Abnormal smear Sodium 152 H (136-145) mEq/L Potassium 3.9 (3.5-5.1) mEq/L Chloride 116 H (98-107) mEq/L Carbon Dioxide 26 (21-32) mEq/L Anion Gap 13.9 (5-15) BUN 30 H (7-18) mg/dL Creatinine 1.3 (0.7-1.3) mg/dL Est Cr Clr Drug Dosing 53.35 mL/min Estimated GFR (MDRD) 55 (>60) mL/min BUN/Creatinine Ratio 23.1 H (14-18) Glucose 287 H (70-99) mg/dL Calcium 8.9 (8.5-10.1) mg/dL Phosphorus 3.6 (2.6-4.7) mg/dL Magnesium 2.7 H (1.8-2.4) mg/dL Total Bilirubin 1.1 H (0.2-1.0) mg/dL AST 31 (15-37) U/L ALT 37 (16-63) U/L Alkaline Phosphatase 98 (46-116) U/L C-Reactive Protein 7.0 H* (<1.0) mg/dL Total Protein 6.6 (6.4-8.2) g/dl Albumin 2.3 L (3.4-5.0) g/dl Globulin 4.3 gm/dL Albumin/Globulin Ratio 0.5 L (1-2) Result Diagrams: 03/13/21 08:28 03/13/21 08:28 Sepsis Event Note - Evaluation Sepsis Screening Result: Severe Sepsis Risk - Focused Exam Vital Signs: Vital Signs Temp Pulse Resp BP Pulse Ox Pulse Ox 03/13/21 11:58 48 H 877 H 03/13/21 07:54 86 L 03/13/21 05:12 85 L 03/13/21 03:41 96.8 F L 98 48 H 162/88 H 90 L - Problem List & Annotations (1) Hypoxia SNOMED Code(s): 990423808 Code(s): R09.02 - HYPOXEMIA Status: Acute Current Visit: Yes (2) Pneumonia due to COVID-19 virus SNOMED Code(s): 695264486473320621 Code(s): U07.1 - COVID-19; J12.82 - PNEUMONIA DUE TO CORONAVIRUS DISEASE 2019 Status: Acute Current Visit: Yes (3) Deep vein thrombosis, lower right extremity SNOMED Code(s): 280675572 Code(s): I82.401 - ACUTE EMBOLISM AND THOMBOS UNSP DEEP VEINS OF R LOW EXTREM Status: Acute Current Visit: No Qualifiers: Affected thrombotic vein of extremity: popliteal Chronicity: acute Qualified Code(s): I82.431 - Acute embolism and thrombosis of right popliteal vein (4) Respiratory failure with hypoxia SNOMED Code(s): 91920157780582632 Code(s): J96.91 - RESPIRATORY FAILURE, UNSPECIFIED WITH HYPOXIA Status: Acute Current Visit: Yes - Problem List Review Problem List Initiated/Reviewed/Updated: Yes - My Orders Last 24 Hours: My Active Orders 03/13/21 10:48 Morphine 2 mg IVPUSH Q1H PRN - Plan Plan:: 65-year-old male with COVID-19 pneumonia and history of DVT COVID-19 pneumonia Acute hypoxic respiratory failure * Pulse ox and oxygen therapy, high flow/BiPAP as needed to maintain oxygen saturation greater than 90% * CT angiogram which showed slightly prominent lymph nodes most likely residual from patient's parenchymal process. Diffuse parenchymal densities within both sides of the chest stable from prior chest x-ray. No findings of pulmonary embolus. * Initial elevation in troponin resolved and likely secondary to increased cardiac output and covid 19 infection * Initial CRP significantly elevated at 23. * CRP daily; CRP increased from 4.9-7.0 overnight * Initially high lactic acid of 2.5 resolved to 1.5 with fluids and oxygenation * Completed 5 day course of remdesivir, * completed Rocephin and azithromycin. * Continue dexamethasone to 20mg daily on 03/08 x 5 days (last dose scheduled on Wednesday), followed by 6mg daily * He has elevation of creatinine. No benefit from CT of the chest. Patient already being anticoagulated. He had CTA chest on 03/06 - Negative for PE. * Eliquis is on hold (03/10) due to difficulty taking pills (sleeping and confusion) low (he is on Ativan for alcohol withdrawal) and Lovenox 90mg bid was ordered. 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 * Last occurrence was 2 years ago. * This places him at a high risk for recurrent VTE considering Covid increases thrombosis * US Doppler showed DVT within the distal right superficial femoral or popliteal vein. * He missed 1 dose of Eliquis on 1015, but this is very unlikely to be a treatment failure Hypertension/hyperlipidemia Chronic alcohol abuse/alcohol withdrawal * drinks alcohol every day for 3 to 4 years. But as , he last use of alcohol was 15-20 days ago. * CIWA protocol was initiated. * CT of head negative for acute change * MRI of brain: Unable to performed * Ammonia 21 -on March 12, 2021 * Patient appears to be uncomfortable. Will restart his Ativan and add morphine * urine drug screen was not done in the ER. But do not see he has any daniel of substance abuse * He may need a neurology * Continue to monitor Plan * Admit to medical floor * HF/BIPAP PRN to keep SPO2 above 90%. Currently on BiPAP * I-S, prone positioning, RT, and Covid specific routine care * Albuterol, duo nebs as needed * Continue dexamethasone * Continue baricitinib * Completed remdesivir * Morphine 2 mg IV every hour as needed for pain and shortness of breath * Follow CBC, CMP, mag, and C-reactive protein. * Decrease TPN secondary to hyponatremia. Will wait for family decision on comfort measures before addressing new changes. * VTE therapeutic Lovenox * CODE STATUS: DNR/DNI * Prognosis: Poor. Updated to . I recommend the come in and see him because in my opinion he is at end-of-life. There are no beds available in the surrounding region and patient does not want to be intubated. Because of his significant worsening in oxygen saturations Dr. Mcintosh and I recommended baricitinib to her. Dr. Mcintosh and I spoke with Tre to provide information about baricitinib. Dr. Mcintosh and I offered the "fax sheet for patients and parents/caregivers, for baricitinib" to read and review. Dr. Mcintosh and I stated that therapy has been approved by an emergency use authorization process and has not fully been FDA reviewed or approved. Dr. Mcintosh and I shared potential risks from the therapy including increased risk for serious infections, anaphylaxis, and reaction to medication. Dr. Mcintosh and I discussed there are other potential treatment options that are currently not FDA approved to treat COVID-19. Offered opportunity to ask questions and all questions were answered. Tre voiced understanding and agreed to proceed with treatment. Disposition: Length of stay greater then 96 hours due to slow response to treatment. Prognosis: Poor
[2021-03-13] MEDS: Insulin Lispro 100 Unit/ML 3 ML KwikPen SUBCUT SCH ×2 (15:56→19:25)
[2021-03-13] MEDS: MVI, Adult with Vitamin K 10 ML in AA 5%/Calcium/D20W/Lytes 1,000 ML IV SCH ×2 (15:58)
[2021-03-14] MEDS: Insulin Lispro 100 Unit/ML 3 ML KwikPen SUBCUT SCH ×6 (00:35→19:37)
[2021-03-14] MEDS: Morphine 2 MG/ML SYRINGE IVPUSH PRN ×8 (00:47→22:30)
[2021-03-14] MEDS: Sodium Chloride 0.45% 1,000 ML IV SCH ×2 (00:52→21:10)
[2021-03-14] MEDS: LORazepam 2 MG/ML SDV IVPUSH PRN ×2 (08:25→16:46)
[2021-03-14] MEDS: Enoxaparin 100 MG/1 ML Syringe SUBCUT SCH ×2 (08:31→21:10)
[2021-03-14] MEDS: Pantoprazole 40 MG Vial IVPUSH SCH (08:31)
[2021-03-14] MEDS: Dexamethasone 10 MG/ML SDV IVPUSH SCH (08:33)
[2021-03-14] MEDS: Fluticasone Propionate Nasal Spray 16 GM Bottle NASBOTH SCH (08:41)
[2021-03-14] MEDS: Fat Emulsion 500 ML IV SCH (14:49)
--- NOTE | 2021-03-14 15:54 | PCM.PN ---
- General Info Date of Service: 03/14/21 Admission Dx/Problem (Free Text): Admission Diagnosis/Problem Admission Diagnosis/Problem Pneumonia Subjective Update: Tre was very combative and pulling at his mask most of the day. He has significant drops in his oxygen saturations when he does pull off his BiPAP. 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 Patient is unable to take orally at this time tamara opportunities for anticoagulation few. Unable to communicate Functional Status: Reports: Other - Patient Data Vitals - Most Recent: Last Vital Signs Temp 97.3 F 03/14/21 15:13 Pulse 83 03/14/21 15:13 Resp 24 H 03/14/21 15:13 BP 146/102 H 03/14/21 15:13 Pulse Ox 91 L 03/14/21 15:29 Weight - Most Recent: 201 lb 4.8 oz I&O - Last 24 Hours: Intake & Output 03/14/21 03/14/21 03/14/21 06:59 14:59 22:59 Intake Total 742 Balance 742 Lab Results Last 24 Hours: Laboratory Results - last 24 hr 03/13/21 03/13/21 03/14/21 Range/Units 15:49 19:20 00:27 WBC (4.23-9.07) K/mm3 RBC (4.63-6.08) M/mm3 Hgb (13.7-17.5) gm/dl Hct (40.1-51.0) % MCV (79.0-92.2) fl MCH (25.7-32.2) pg MCHC (32.2-35.5) g/dl RDW Std Deviation (35.1-43.9) fL Plt Count (163-337) K/mm3 MPV (9.4-12.3) fl Neut % (Auto) (34.0-67.9) % Lymph % (Auto) (21.8-53.1) % Edgar % (Auto) (5.3-12.2) % Eos % (Auto) (0.8-7.0) Baso % (Auto) (0.1-1.2) % Neut # (Auto) (1.78-5.38) K/mm3 Lymph # (Auto) (1.32-3.57) K/mm3 Edgar # (Auto) (0.30-0.82) K/mm3 Eos # (Auto) (0.04-0.54) K/mm3 Baso # (Auto) (0.01-0.08) K/mm3 Manual Slide Review Sodium (136-145) mEq/L Potassium (3.5-5.1) mEq/L Chloride (98-107) mEq/L Carbon Dioxide (21-32) mEq/L Anion Gap (5-15) BUN (7-18) mg/dL Creatinine (0.7-1.3) mg/dL Est Cr Clr Drug Dosing mL/min Estimated GFR (MDRD) (>60) mL/min BUN/Creatinine Ratio (14-18) Glucose (70-99) mg/dL POC Glucose 335 H 397 H 356 H (70-99) mg/dL Calcium (8.5-10.1) mg/dL Phosphorus (2.6-4.7) mg/dL Magnesium (1.8-2.4) mg/dL Total Bilirubin (0.2-1.0) mg/dL AST (15-37) U/L ALT (16-63) U/L Alkaline Phosphatase (46-116) U/L C-Reactive Protein (<1.0) mg/dL Total Protein (6.4-8.2) g/dl Albumin (3.4-5.0) g/dl Globulin gm/dL Albumin/Globulin Ratio (1-2) 03/14/21 03/14/21 03/14/21 Range/Units 03:17 06:51 06:56 WBC 18.45 H (4.23-9.07) K/mm3 RBC 5.07 (4.63-6.08) M/mm3 Hgb 15.5 D (13.7-17.5) gm/dl Hct 48.7 (40.1-51.0) % MCV 96.1 H (79.0-92.2) fl MCH 30.6 (25.7-32.2) pg MCHC 31.8 L (32.2-35.5) g/dl RDW Std Deviation 48.8 H (35.1-43.9) fL Plt Count 85 L (163-337) K/mm3 MPV 12.5 H (9.4-12.3) fl Neut % (Auto) 93.1 H (34.0-67.9) % Lymph % (Auto) 4.0 L (21.8-53.1) % Edgar % (Auto) 2.4 L (5.3-12.2) % Eos % (Auto) 0 L (0.8-7.0) Baso % (Auto) 0.1 (0.1-1.2) % Neut # (Auto) 17.16 H (1.78-5.38) K/mm3 Lymph # (Auto) 0.74 L (1.32-3.57) K/mm3 Edgar # (Auto) 0.45 (0.30-0.82) K/mm3 Eos # (Auto) 0.00 L (0.04-0.54) K/mm3 Baso # (Auto) 0.02 (0.01-0.08) K/mm3 Manual Slide Review Abnormal smear Sodium (136-145) mEq/L Potassium (3.5-5.1) mEq/L Chloride (98-107) mEq/L Carbon Dioxide (21-32) mEq/L Anion Gap (5-15) BUN (7-18) mg/dL Creatinine (0.7-1.3) mg/dL Est Cr Clr Drug Dosing mL/min Estimated GFR (MDRD) (>60) mL/min BUN/Creatinine Ratio (14-18) Glucose (70-99) mg/dL POC Glucose 293 H 288 H (70-99) mg/dL Calcium (8.5-10.1) mg/dL Phosphorus (2.6-4.7) mg/dL Magnesium (1.8-2.4) mg/dL Total Bilirubin (0.2-1.0) mg/dL AST (15-37) U/L ALT (16-63) U/L Alkaline Phosphatase (46-116) U/L C-Reactive Protein (<1.0) mg/dL Total Protein (6.4-8.2) g/dl Albumin (3.4-5.0) g/dl Globulin gm/dL Albumin/Globulin Ratio (1-2) 03/14/21 03/14/21 03/14/21 Range/Units 06:56 06:56 11:27 WBC (4.23-9.07) K/mm3 RBC (4.63-6.08) M/mm3 Hgb (13.7-17.5) gm/dl Hct (40.1-51.0) % MCV (79.0-92.2) fl MCH (25.7-32.2) pg MCHC (32.2-35.5) g/dl RDW Std Deviation (35.1-43.9) fL Plt Count (163-337) K/mm3 MPV (9.4-12.3) fl Neut % (Auto) (34.0-67.9) % Lymph % (Auto) (21.8-53.1) % Edgar % (Auto) (5.3-12.2) % Eos % (Auto) (0.8-7.0) Baso % (Auto) (0.1-1.2) % Neut # (Auto) (1.78-5.38) K/mm3 Lymph # (Auto) (1.32-3.57) K/mm3 Edgar # (Auto) (0.30-0.82) K/mm3 Eos # (Auto) (0.04-0.54) K/mm3 Baso # (Auto) (0.01-0.08) K/mm3 Manual Slide Review Sodium 149 H (136-145) mEq/L Potassium 4.6 (3.5-5.1) mEq/L Chloride 118 H (98-107) mEq/L Carbon Dioxide 27 (21-32) mEq/L Anion Gap 8.6 (5-15) BUN 32 H (7-18) mg/dL Creatinine 1.2 (0.7-1.3) mg/dL Est Cr Clr Drug Dosing 57.79 mL/min Estimated GFR (MDRD) > 60 (>60) mL/min BUN/Creatinine Ratio 26.7 H (14-18) Glucose 263 H (70-99) mg/dL POC Glucose 248 H (70-99) mg/dL Calcium 8.8 (8.5-10.1) mg/dL Phosphorus 3.6 (2.6-4.7) mg/dL Magnesium 2.9 H (1.8-2.4) mg/dL Total Bilirubin 0.8 (0.2-1.0) mg/dL AST 18 (15-37) U/L ALT 27 (16-63) U/L Alkaline Phosphatase 87 (46-116) U/L C-Reactive Protein 9.2 H* (<1.0) mg/dL Total Protein 5.7 L (6.4-8.2) g/dl Albumin 1.9 L (3.4-5.0) g/dl Globulin 3.8 gm/dL Albumin/Globulin Ratio 0.5 L (1-2) 03/14/21 Range/Units 15:15 WBC (4.23-9.07) K/mm3 RBC (4.63-6.08) M/mm3 Hgb (13.7-17.5) gm/dl Hct (40.1-51.0) % MCV (79.0-92.2) fl MCH (25.7-32.2) pg MCHC (32.2-35.5) g/dl RDW Std Deviation (35.1-43.9) fL Plt Count (163-337) K/mm3 MPV (9.4-12.3) fl Neut % (Auto) (34.0-67.9) % Lymph % (Auto) (21.8-53.1) % Edgar % (Auto) (5.3-12.2) % Eos % (Auto) (0.8-7.0) Baso % (Auto) (0.1-1.2) % Neut # (Auto) (1.78-5.38) K/mm3 Lymph # (Auto) (1.32-3.57) K/mm3 Edgar # (Auto) (0.30-0.82) K/mm3 Eos # (Auto) (0.04-0.54) K/mm3 Baso # (Auto) (0.01-0.08) K/mm3 Manual Slide Review Sodium (136-145) mEq/L Potassium (3.5-5.1) mEq/L Chloride (98-107) mEq/L Carbon Dioxide (21-32) mEq/L Anion Gap (5-15) BUN (7-18) mg/dL Creatinine (0.7-1.3) mg/dL Est Cr Clr Drug Dosing mL/min Estimated GFR (MDRD) (>60) mL/min BUN/Creatinine Ratio (14-18) Glucose (70-99) mg/dL POC Glucose 276 H (70-99) mg/dL Calcium (8.5-10.1) mg/dL Phosphorus (2.6-4.7) mg/dL Magnesium (1.8-2.4) mg/dL Total Bilirubin (0.2-1.0) mg/dL AST (15-37) U/L ALT (16-63) U/L Alkaline Phosphatase (46-116) U/L C-Reactive Protein (<1.0) mg/dL Total Protein (6.4-8.2) g/dl Albumin (3.4-5.0) g/dl Globulin gm/dL Albumin/Globulin Ratio (1-2) Med Orders - Current: Current Medications Acetaminophen (Acetaminophen 325 Mg Tab) 650 mg PO Q4H PRN PRN Reason: Pain (Mild 1-3)/fever Hydrocodone Bitart/Acetaminophen (Acetaminophen/Hydrocodone 325-5 Mg Tab) 1 tab PO Q4H PRN PRN Reason: Pain (moderate 4-6) Albuterol (Albuterol 6.7 Gm Inhaler) 0 gm INH Q6H PRN PRN Reason: sob wheezing Albuterol/Ipratropium (Albuterol/Ipratropium 3.0-0.5 Mg/3 Ml Neb Soln) 3 ml NEB Q4HRRT PRN PRN Reason: Shortness of Breath Last Admin: 03/13/21 20:38 Dose: 3 ml Documented by: Baricitinib (Baricitinib 2 Mg Tab) 2 mg PO Q24H [facility] Stop: 03/20/21 21:31 Last Admin: 03/13/21 21:20 Dose: Not Given Documented by: Dexamethasone (Dexamethasone 10 Mg/Ml Sdv) 6 mg IVPUSH DAILY [facility] Enoxaparin Sodium (Enoxaparin 100 Mg/1 Ml Syringe) 90 mg 1 mg/kg (90 mg) SUBCUT BID [facility] Last Admin: 03/14/21 08:31 Dose: 90 mg Documented by: Fluticasone Propionate (Fluticasone Propionate Nasal [place] 16 Gm Bottle) 0 gm NASBOTH DAILY [facility] Last Admin: 03/14/21 08:41 Dose: Not Given Documented by: Fat Emulsion Intravenous (Intralipid 20%) 500 mls @ 62.5 mls/hr IV MoWeFr [facility] Last Admin: 03/14/21 14:49 Dose: 62.5 mls/hr Documented by: Sodium Chloride (Sodium Chloride 0.45%) 1,000 mls @ 50 mls/hr IV ASDIRECTED [facility] Last Admin: 03/14/21 00:52 Dose: 50 mls/hr Documented by: Multivitamins/Minerals 10 ml/Amino Ac/Electrol/Dextrose/Calcium 1,010 mls @ 35 mls/hr IV Q24H [facility] Last Admin: 03/13/21 15:58 Dose: 35 mls/hr Documented by: Insulin Human Lispro (Insulin Lispro 100 Unit/Ml 3 Ml Kwikpen) 0 unit SUBCUT Q4H [facility]; Protocol Last Admin: 03/14/21 15:26 Dose: 3 unit Documented by: Lorazepam (Lorazepam 2 Mg/Ml Sdv) 1 mg IVPUSH Q6HR PRN PRN Reason: tachypnea/anxiety Last Admin: 03/14/21 08:25 Dose: 1 mg Documented by: Morphine Sulfate (Morphine 2 Mg/Ml Syringe) 2 mg IVPUSH Q1H PRN PRN Reason: Pain Last Admin: 03/14/21 13:23 Dose: 2 mg Documented by: Ondansetron HCl (Ondansetron 4 Mg/2 Ml Sdv) 4 mg IV Q6H PRN PRN Reason: Nausea/Vomiting Pantoprazole Sodium (Pantoprazole 40 Mg Vial) 40 mg IVPUSH DAILY [facility] Last Admin: 03/14/21 08:31 Dose: 40 mg Documented by: Pharmacy Consult (Pharmacy Consult Order) 1 each .XX DAILY PRN PRN Reason: LABS AND ELECTROLYTES Trazodone HCl (Trazodone 50 Mg Tab) 50 mg PO BEDTIME PRN PRN Reason: Insomnia Last Admin: 03/08/21 23:28 Dose: 50 mg Documented by: Discontinued Medications Albuterol (Albuterol 6.7 Gm Inhaler) 0 gm INH Q6H [facility] Last Admin: 03/12/21 03:41 Dose: 2 puff Documented by: Apixaban (Apixaban 5 Mg Tab) 5 mg PO BID [facility] Last Admin: 03/10/21 09:26 Dose: Not Given Documented by: Aspirin (Aspirin 81 Mg Tab.Chew) 324 mg PO ONETIME ONE Stop: 03/06/21 12:46 Last Admin: 03/06/21 13:01 Dose: 324 mg Documented by: Atorvastatin Calcium (Atorvastatin 20 Mg Tab) 20 mg PO DAILY [facility] Last Admin: 03/11/21 10:05 Dose: Not Given Documented by: Bisacodyl (Bisacodyl 10 Mg Supp) 10 mg RECTAL ONETIME ONE Stop: 03/13/21 07:01 Last Admin: 03/13/21 07:51 Dose: Not Given Documented by: Calcium Carbonate/Glycine (Calcium Carbonate 500 Mg Tab.Chew) 1,000 mg PO ONETIME ONE Stop: 03/07/21 09:38 Last Admin: 03/07/21 09:53 Dose: 1,000 mg Documented by: Dexamethasone (Dexamethasone 10 Mg/Ml Sdv) 6 mg IVPUSH DAILY [facility] Stop: 03/15/21 09:01 Last Admin: 03/08/21 08:29 Dose: 6 mg Documented by: Dexamethasone (Dexamethasone 10 Mg/Ml Sdv) 20 mg IVPUSH DAILY [facility] Stop: 03/14/21 23:59 Last Admin: 03/14/21 08:33 Dose: 20 mg Documented by: Dexamethasone (Dexamethasone 4 Mg Tab) 6 mg PO DAILY [facility] Enoxaparin Sodium (Enoxaparin 40 Mg/0.4 Ml Syringe) 40 mg SUBCUT DAILY [facility] Enoxaparin Sodium (Enoxaparin 100 Mg/1 Ml Syringe) 90 mg SUBCUT ONETIME ONE Stop: 03/08/21 13:46 Last Admin: 03/08/21 14:20 Dose: 90 mg Documented by: Furosemide (Furosemide 40 Mg Tab) 40 mg PO DAILY [facility] Last Admin: 03/09/21 10:13 Dose: 40 mg Documented by: Sodium Chloride (Normal Saline) 1,000 mls @ 250 mls/hr IV ONETIME ONE Stop: 03/06/21 13:50 Last Admin: 03/06/21 09:55 Dose: 250 mls/hr Documented by: Ceftriaxone Sodium 1 gm/ (Sodium Chloride) 100 mls @ 200 mls/hr IV ONETIME ONE Stop: 03/06/21 11:04 Last Admin: 03/06/21 10:44 Dose: 200 mls/hr Documented by: Sodium Chloride (Normal Saline) 100 mls @ 60 mls/hr IV ASDIRECTED [facility] Last Admin: 03/06/21 11:10 Dose: 60 mls/hr Documented by: Sodium Chloride (Normal Saline) 1,000 mls @ 150 mls/hr IV ASDIRECTED [facility] Last Admin: 03/06/21 14:48 Dose: 150 mls/hr Documented by: Remdesivir 200 mg/ Sodium (Chloride) 250 mls @ 250 mls/hr IV ONETIME ONE Stop: 03/06/21 16:18 Last Admin: 03/06/21 16:56 Dose: 250 mls/hr Documented by: Azithromycin 500 mg/ Sodium (Chloride) 250 mls @ 250 mls/hr IV Q24H [facility] Last Admin: 03/09/21 15:54 Dose: 250 mls/hr Documented by: Remdesivir 100 mg/ Sodium (Chloride) 100 mls @ 100 mls/hr IV Q24H [facility] Stop: 03/10/21 18:14 Last Admin: 03/10/21 16:47 Dose: 100 mls/hr Documented by: Ceftriaxone Sodium 2 gm/ (Sodium Chloride) 100 mls @ 200 mls/hr IV Q24H [facility] Stop: 03/10/21 17:29 Last Admin: 03/09/21 17:10 Dose: 200 mls/hr Documented by: Dextrose/Water (Dextrose 5% In Water) 1,000 mls @ 50 mls/hr IV ASDIRECTED [facility] Last Admin: 03/11/21 10:19 Dose: 50 mls/hr Documented by: Azithromycin 500 mg/ Sodium (Chloride) 250 mls @ 250 mls/hr IV Q24H [facility] Azithromycin 500 mg/ Sodium (Chloride) 250 mls @ 250 mls/hr IV ONETIME ONE Stop: 03/10/21 15:44 Last Admin: 03/10/21 14:44 Dose: 250 mls/hr Documented by: Sodium Chloride (Sodium Chloride 0.45%) 1,000 mls @ 65 mls/hr IV ASDIRECTED [facility] Stop: 03/12/21 14:00 Last Admin: 03/12/21 10:43 Dose: 65 mls/hr Documented by: Multivitamins/Minerals 10 ml/Amino Ac/Electrol/Dextrose/Calcium 1,010 mls @ 35 mls/hr IV TITRATE [facility] Stop: 03/13/21 13:29 Last Admin: 03/12/21 13:37 Dose: 35 mls/hr Documented by: Non-Formulary Medication (Nf Drug) 540 mls @ 45 mls/hr IVPUSH ONETIME ONE Stop: 03/13/21 12:29 Last Admin: 03/13/21 00:30 Dose: 45 mls/hr Documented by: Sodium Chloride (Sodium Chloride 0.45%) 1,000 mls @ 50 mls/hr IV ASDIRECTED [facility] Iopamidol (Iopamidol 755 Mg/Ml 100 Ml Bottle) 100 ml IVPUSH ONETIME ONE Stop: 03/06/21 10:41 Last Admin: 03/06/21 11:09 Dose: 100 ml Documented by: Lorazepam (Lorazepam 2 Mg/Ml Sdv) 1 mg IVPUSH Q6H PRN; Protocol PRN Reason: Anxiety Last Admin: 03/09/21 01:37 Dose: 1 mg Documented by: Lorazepam (Lorazepam 2 Mg/Ml Sdv) Confirm Administered Dose 2 mg .ROUTE .STK-MED ONE Stop: 03/09/21 01:26 Last Admin: 03/09/21 02:20 Dose: Not Given Documented by: Lorazepam (Lorazepam 2 Mg/Ml Sdv) 1 - 3 mg IVPUSH Q1H PRN; Protocol PRN Reason: Anxiety Lorazepam (Lorazepam 2 Mg/Ml Sdv) 1 - 3 mg IVPUSH Q1H PRN; Protocol PRN Reason: Anxiety Last Admin: 03/09/21 13:55 Dose: 1 mg Documented by: Lorazepam (Lorazepam 2 Mg/Ml Sdv) 1 - 2 mg IVPUSH Q1H PRN; Protocol PRN Reason: Withdrawal Symptoms Last Admin: 03/12/21 08:14 Dose: 2 mg Documented by: Lorazepam (Lorazepam 2 Mg/Ml Sdv) 1 mg IM ONETIME ONE Stop: 03/11/21 21:12 Last Admin: 03/11/21 21:16 Dose: Not Given Documented by: Midazolam HCl (Midazolam 1 Mg/Ml 2 Ml Sdv) 1 - 2 mg IVPUSH ONETIME ONE Stop: 03/12/21 09:18 Last Admin: 03/12/21 09:38 Dose: 1 mg Documented by: Pantoprazole Sodium (Pantoprazole 40 Mg Tab.Cr) 40 mg PO BIDAC [facility] Last Admin: 03/10/21 05:38 Dose: Not Given Documented by: Sodium Chloride (Sodium Chloride 0.9% 10 Ml Syringe) 10 ml FLUSH ONETIME PRN PRN Reason: Keep Vein Open Last Admin: 03/09/21 18:57 Dose: 30 ml Documented by: - Exam Quality Assessment: Supplemental Oxygen (BiPAP) Central Line Total Time: 2Days 3Hours Urinary Catheter Total Time: 0Days 10Hours General: No: Alert HEENT: Pupils Equal Neck: Supple Lungs: Crackles (Throughout). No: Normal Respiratory Effort (Increased respiratory rate and effort) Cardiovascular: Regular Rate, Regular Rhythm GI/Abdominal Exam: Soft, Non-Tender, Abnormal Bowel Sounds - Patient Data Lab Results Last 24 hrs: Laboratory Results - last 24 hr 03/13/21 03/13/21 03/14/21 Range/Units 15:49 19:20 00:27 WBC (4.23-9.07) K/mm3 RBC (4.63-6.08) M/mm3 Hgb (13.7-17.5) gm/dl Hct (40.1-51.0) % MCV (79.0-92.2) fl MCH (25.7-32.2) pg MCHC (32.2-35.5) g/dl RDW Std Deviation (35.1-43.9) fL Plt Count (163-337) K/mm3 MPV (9.4-12.3) fl Neut % (Auto) (34.0-67.9) % Lymph % (Auto) (21.8-53.1) % Edgar % (Auto) (5.3-12.2) % Eos % (Auto) (0.8-7.0) Baso % (Auto) (0.1-1.2) % Neut # (Auto) (1.78-5.38) K/mm3 Lymph # (Auto) (1.32-3.57) K/mm3 Edgar # (Auto) (0.30-0.82) K/mm3 Eos # (Auto) (0.04-0.54) K/mm3 Baso # (Auto) (0.01-0.08) K/mm3 Manual Slide Review Sodium (136-145) mEq/L Potassium (3.5-5.1) mEq/L Chloride (98-107) mEq/L Carbon Dioxide (21-32) mEq/L Anion Gap (5-15) BUN (7-18) mg/dL Creatinine (0.7-1.3) mg/dL Est Cr Clr Drug Dosing mL/min Estimated GFR (MDRD) (>60) mL/min BUN/Creatinine Ratio (14-18) Glucose (70-99) mg/dL POC Glucose 335 H 397 H 356 H (70-99) mg/dL Calcium (8.5-10.1) mg/dL Phosphorus (2.6-4.7) mg/dL Magnesium (1.8-2.4) mg/dL Total Bilirubin (0.2-1.0) mg/dL AST (15-37) U/L ALT (16-63) U/L Alkaline Phosphatase (46-116) U/L C-Reactive Protein (<1.0) mg/dL Total Protein (6.4-8.2) g/dl Albumin (3.4-5.0) g/dl Globulin gm/dL Albumin/Globulin Ratio (1-2) 03/14/21 03/14/21 03/14/21 Range/Units 03:17 06:51 06:56 WBC 18.45 H (4.23-9.07) K/mm3 RBC 5.07 (4.63-6.08) M/mm3 Hgb 15.5 D (13.7-17.5) gm/dl Hct 48.7 (40.1-51.0) % MCV 96.1 H (79.0-92.2) fl MCH 30.6 (25.7-32.2) pg MCHC 31.8 L (32.2-35.5) g/dl RDW Std Deviation 48.8 H (35.1-43.9) fL Plt Count 85 L (163-337) K/mm3 MPV 12.5 H (9.4-12.3) fl Neut % (Auto) 93.1 H (34.0-67.9) % Lymph % (Auto) 4.0 L (21.8-53.1) % Edgar % (Auto) 2.4 L (5.3-12.2) % Eos % (Auto) 0 L (0.8-7.0) Baso % (Auto) 0.1 (0.1-1.2) % Neut # (Auto) 17.16 H (1.78-5.38) K/mm3 Lymph # (Auto) 0.74 L (1.32-3.57) K/mm3 Edgar # (Auto) 0.45 (0.30-0.82) K/mm3 Eos # (Auto) 0.00 L (0.04-0.54) K/mm3 Baso # (Auto) 0.02 (0.01-0.08) K/mm3 Manual Slide Review Abnormal smear Sodium (136-145) mEq/L Potassium (3.5-5.1) mEq/L Chloride (98-107) mEq/L Carbon Dioxide (21-32) mEq/L Anion Gap (5-15) BUN (7-18) mg/dL Creatinine (0.7-1.3) mg/dL Est Cr Clr Drug Dosing mL/min Estimated GFR (MDRD) (>60) mL/min BUN/Creatinine Ratio (14-18) Glucose (70-99) mg/dL POC Glucose 293 H 288 H (70-99) mg/dL Calcium (8.5-10.1) mg/dL Phosphorus (2.6-4.7) mg/dL Magnesium (1.8-2.4) mg/dL Total Bilirubin (0.2-1.0) mg/dL AST (15-37) U/L ALT (16-63) U/L Alkaline Phosphatase (46-116) U/L C-Reactive Protein (<1.0) mg/dL Total Protein (6.4-8.2) g/dl Albumin (3.4-5.0) g/dl Globulin gm/dL Albumin/Globulin Ratio (1-2) 03/14/21 03/14/21 03/14/21 Range/Units 06:56 06:56 11:27 WBC (4.23-9.07) K/mm3 RBC (4.63-6.08) M/mm3 Hgb (13.7-17.5) gm/dl Hct (40.1-51.0) % MCV (79.0-92.2) fl MCH (25.7-32.2) pg MCHC (32.2-35.5) g/dl RDW Std Deviation (35.1-43.9) fL Plt Count (163-337) K/mm3 MPV (9.4-12.3) fl Neut % (Auto) (34.0-67.9) % Lymph % (Auto) (21.8-53.1) % Edgar % (Auto) (5.3-12.2) % Eos % (Auto) (0.8-7.0) Baso % (Auto) (0.1-1.2) % Neut # (Auto) (1.78-5.38) K/mm3 Lymph # (Auto) (1.32-3.57) K/mm3 Edgar # (Auto) (0.30-0.82) K/mm3 Eos # (Auto) (0.04-0.54) K/mm3 Baso # (Auto) (0.01-0.08) K/mm3 Manual Slide Review Sodium 149 H (136-145) mEq/L Potassium 4.6 (3.5-5.1) mEq/L Chloride 118 H (98-107) mEq/L Carbon Dioxide 27 (21-32) mEq/L Anion Gap 8.6 (5-15) BUN 32 H (7-18) mg/dL Creatinine 1.2 (0.7-1.3) mg/dL Est Cr Clr Drug Dosing 57.79 mL/min Estimated GFR (MDRD) > 60 (>60) mL/min BUN/Creatinine Ratio 26.7 H (14-18) Glucose 263 H (70-99) mg/dL POC Glucose 248 H (70-99) mg/dL Calcium 8.8 (8.5-10.1) mg/dL Phosphorus 3.6 (2.6-4.7) mg/dL Magnesium 2.9 H (1.8-2.4) mg/dL Total Bilirubin 0.8 (0.2-1.0) mg/dL AST 18 (15-37) U/L ALT 27 (16-63) U/L Alkaline Phosphatase 87 (46-116) U/L C-Reactive Protein 9.2 H* (<1.0) mg/dL Total Protein 5.7 L (6.4-8.2) g/dl Albumin 1.9 L (3.4-5.0) g/dl Globulin 3.8 gm/dL Albumin/Globulin Ratio 0.5 L (1-2) 03/14/ Range/Units 15:15 WBC (4.23-9.07) K/mm3 RBC (4.63-6.08) M/mm3 Hgb (13.7-17.5) gm/dl Hct (40.1-51.0) % MCV (79.0-92.2) fl MCH (25.7-32.2) pg MCHC (32.2-35.5) g/dl RDW Std Deviation (35.1-43.9) fL Plt Count (163-337) K/mm3 MPV (9.4-12.3) fl Neut % (Auto) (34.0-67.9) % Lymph % (Auto) (21.8-53.1) % Edgar % (Auto) (5.3-12.2) % Eos % (Auto) (0.8-7.0) Baso % (Auto) (0.1-1.2) % Neut # (Auto) (1.78-5.38) K/mm3 Lymph # (Auto) (1.32-3.57) K/mm3 Edgar # (Auto) (0.30-0.82) K/mm3 Eos # (Auto) (0.04-0.54) K/mm3 Baso # (Auto) (0.01-0.08) K/mm3 Manual Slide Review Sodium (136-145) mEq/L Potassium (3.5-5.1) mEq/L Chloride (98-107) mEq/L Carbon Dioxide (21-32) mEq/L Anion Gap (5-15) BUN (7-18) mg/dL Creatinine (0.7-1.3) mg/dL Est Cr Clr Drug Dosing mL/min Estimated GFR (MDRD) (>60) mL/min BUN/Creatinine Ratio (14-18) Glucose (70-99) mg/dL POC Glucose 276 H (70-99) mg/dL Calcium (8.5-10.1) mg/dL Phosphorus (2.6-4.7) mg/dL Magnesium (1.8-2.4) mg/dL Total Bilirubin (0.2-1.0) mg/dL AST (15-37) U/L ALT (16-63) U/L Alkaline Phosphatase (46-116) U/L C-Reactive Protein (<1.0) mg/dL Total Protein (6.4-8.2) g/dl Albumin (3.4-5.0) g/dl Globulin gm/dL Albumin/Globulin Ratio (1-2) Result Diagrams: 03/14/21 06:56 03/14/21 06:56 Sepsis Event Note - Evaluation Sepsis Screening Result: Severe Sepsis Risk - Focused Exam Vital Signs: Vital Signs Temp Pulse Resp BP Pulse Ox Pulse Ox 03/14/21 15:29 91 L 03/14/21 15:13 97.3 F 83 24 H 146/102 H 82 L 03/14/21 12:20 97.9 F 92 24 H 114/68 83 L 03/14/21 08:58 36 H 03/14/21 08:01 97.7 F 93 24 H 140/89 83 L - Problem List & Annotations (1) Hypoxia SNOMED Code(s): 395479443 Code(s): R09.02 - HYPOXEMIA Status: Acute Current Visit: Yes (2) Pneumonia due to COVID-19 virus SNOMED Code(s): 330939075592584532 Code(s): U07.1 - COVID-19; J12.82 - PNEUMONIA DUE TO CORONAVIRUS DISEASE 2019 Status: Acute Current Visit: Yes (3) Deep vein thrombosis, lower right extremity SNOMED Code(s): 483234836 Code(s): I82.401 - ACUTE EMBOLISM AND THOMBOS UNSP DEEP VEINS OF R LOW EXTREM Status: Acute Current Visit: No Qualifiers: Affected thrombotic vein of extremity: popliteal Chronicity: acute Qualified Code(s): I82.431 - Acute embolism and thrombosis of right popliteal vein (4) Respiratory failure with hypoxia SNOMED Code(s): 81404732784348908 Code(s): J96.91 - RESPIRATORY FAILURE, UNSPECIFIED WITH HYPOXIA Status: Acute Current Visit: Yes - Problem List Review Problem List Initiated/Reviewed/Updated: Yes - My Orders Last 24 Hours: My Active Orders 03/13/21 15:00 Insulin Lispro [HumaLOG] See Protocol SUBCUT Q4H 03/13/21 19:25 Renew/Continue Central Line Access [OM.PC] Routine 03/15/21 09:00 dexAMETHasone [Decadron] 6 mg IVPUSH DAILY - Plan Plan:: 65-year-old male with COVID-19 pneumonia and history of DVT COVID-19 pneumonia Acute hypoxic respiratory failure * Pulse ox and oxygen therapy, high flow/BiPAP as needed to maintain oxygen saturation greater than 90% * CT angiogram which showed slightly prominent lymph nodes most likely residual from patient's parenchymal process. Diffuse parenchymal densities within both sides of the chest stable from prior chest x-ray. No findings of pulmonary embolus. * Initial elevation in troponin resolved and likely secondary to increased cardiac output and covid 19 infection * Initial CRP significantly elevated at 23. * CRP daily; CRP increasing 4.9-7.0-9.2 * Initially high lactic acid of 2.5 resolved to 1.5 with fluids and oxygenation * Completed 5 day course of remdesivir, * completed Rocephin and azithromycin. * Continue dexamethasone to 20mg daily on 03/08 x 5 days (last dose scheduled on Wednesday), followed by 6mg daily * No benefit from CT of the chest. Patient already being anticoagulated. He had CTA chest on 03/06 - Negative for PE. * Eliquis is on hold (03/10) due to difficulty taking pills (sleeping and confusion) low (he is on Ativan for alcohol withdrawal) and Lovenox 90mg bid was ordered. * Platelets down to 85,000. 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 * Last occurrence was 2 years ago. * This places him at a high risk for recurrent VTE considering Covid increases thrombosis * US Doppler showed DVT within the distal right superficial femoral or popliteal vein. * He missed 1 dose of Eliquis on 1015, but this is very unlikely to be a tr eatment failure * Patient has increased risk of bleeding secondary to low platelets and on Lovenox Hypertension/hyperlipidemia Chronic alcohol abuse/alcohol withdrawal * drinks alcohol every day for 3 to 4 years. But as , he last use of alcohol was 15-20 days ago. * CIWA protocol was initiated. * CT of head negative for acute change * MRI of brain: Unable to performed * Ammonia 21 -on March 12, 2021 * Patient appears to be uncomfortable. Will restart his Ativan and add morphine * urine drug screen was not done in the ER. But do not see he has any daniel of substance abuse * He may need a neurology * Continue to monitor Plan * Admit to medical floor * HF/BIPAP PRN to keep SPO2 above 90%. Currently on BiPAP * I-S, prone positioning, RT, and Covid specific routine care * Albuterol, duo nebs as needed * Continue dexamethasone * Continue baricitinib * Completed remdesivir * Morphine 2 mg IV every hour as needed for pain and shortness of breath * Follow CBC, CMP, mag, and C-reactive protein. * Decrease TPN secondary to hyponatremia. Will wait for family decision on comfort measures before addressing new changes. * VTE therapeutic Lovenox * CODE STATUS: DNR/DNI * Prognosis: Poor. Had a long conversation with the about his condition. Patient has a very high mortality rate and he also does not want to be intubated. She still wants us to continue doing everything up to intubation. Because of his significant worsening in oxygen saturations Dr. Mcintosh and I recommended baricitinib to her. Dr. Mcintosh and I spoke with Tre to provide information about baricitinib. Dr. Mcintosh and I offered the "fax sheet for patients and parents/caregivers, for baricitinib" to read and review. Dr. Mcintosh and Misty stated that therapy has been approved by an emergency use authorization process and has not fully been FDA reviewed or approved. Dr. Mcintosh and Misty shared potential risks from the therapy including increased risk for serious infections, anaphylaxis, and reaction to medication. Dr. Mcintosh and Misty discussed there are other potential treatment options that are currently not FDA approved to treat COVID-19. Offered opportunity to ask questions and all questions were answered. Tre voiced understanding and agreed to proceed with treatment. Disposition: Length of stay greater then 96 hours due to slow response to treatment. Prognosis: Poor
[2021-03-14] MEDS: MVI, Adult with Vitamin K 10 ML in AA 5%/Calcium/D20W/Lytes 1,000 ML IV SCH ×2 (16:00)
[2021-03-14] MEDS ORDERED: LORazepam 2 MG/ML SDV IVPUSH PRN (22:33)
[2021-03-15] MEDS: Insulin Lispro 100 Unit/ML 3 ML KwikPen SUBCUT SCH (00:45)
[2021-03-15 02:06] VITALS: PULSE 99
[2021-03-15 02:38] VITALS: BP 142/82
[2021-03-15] MEDS ORDERED: Dexamethasone 10 MG/ML SDV IVPUSH SCH (09:00)
[2021-03-15] MEDS ORDERED: Dexamethasone 4 MG Tab PO SCH (09:00)
--- NOTE | 2021-03-24 16:32 | PCM.DCSUM1 ---
Discharge Summary - Hospital Course HPI Initial Comments: 65-year-old male unvaccinated for COVID-19 presented to the emergency department for the second time on 03/06/2021. He was seen initially on 02/25/2021. On that admission he complained of a cough, low-grade fever, chills that were off and on for 3 days. Unfortunately patient is a very poor historian so history was obtained through the emergency department notes mainly. During the 02/25/2021 visit the physician asked to do a COVID-19 swab and the patient refused due to "cancer risk from the swab." During that visit the chest x-ray was normal and he was sent home. Patient returned yesterday and found to be severely hypoxemic with oxygen saturations in the 70s on room air. Also patient was severely dyspneic and unable to speak more than 1 or 2 words in a sentence. Patient does have a history of right-sided DVT x2 or 3 and he is on Eliquis. Most recent clot appears to be 2 years ago. He also has a history of hypertension, hyperlipidemia, and GERD. He is taking furosemide, which is likely due to edema in the right leg, but not sure why. Patient stopped smoking in 1989 and stopped drinking over a month ago. Patient was kept overnight in the emergency department because of no beds available on inpatient [facility]. He was placed on high flow nasal cannula and is currently on 60 L and 85% with oxygen saturations in the mid 80s. Patient was also started on remdesivir, dexamethasone, ceftriaxone, and azithromycin. Assessment/Plan Comment:: 65-year-old male with COVID-19 pneumonia and history of DVT COVID-19 pneumonia Respiratory failure * Patient seen yesterday and put on high flow nasal cannula * CT angiogram which showed slightly prominent lymph nodes most likely residual from patient's parenchymal process. Diffuse parenchymal densities within both sides of the chest stable from prior chest x-ray. No findings of pulmonary embolus. * Initial elevation in troponin resolved and likely secondary to increased cardiac output * Initial CRP significantly elevated at 23 * Initially high lactic acid of 2.5 resolved to 1.5 with fluids and oxygenation * Currently on remdesivir, dexamethasone, Rocephin, and azithromycin. History of DVT in the right leg, anticoagulated with Eliquis * Currently taking Eliquis 5 mg twice daily * DVT occurred in the right leg at least 2 times possibly 3. * Last occurrence was 2 years ago. * This places him at a high risk for recurrent VTE considering Covid increases thrombosis * On Lasix 40 mg every morning, presumably for dependent edema Hypertension/hyperlipidemia Plan * Admit to medical floor * FiO2 to keep SPO2 above 87%. Currently on high flow nasal cannula * I-S, prone positioning, RT, and Covid specific routine care * Albuterol, duo nebs as needed * Continue remdesivir, dexamethasone, Rocephin, and azithromycin * Consider baricitinib or Actemra, will discuss with patient and give him the emergency use authorization handout. * Follow CBC, CMP, mag, and C-reactive protein. * Reconcile home meds and continue as appropriate * VTE prophylaxis with Eliquis * CODE STATUS: DNR/DNI * Prognosis is fair to poor. On high flow nasal cannula with risk factors of obesity and hypertension. - Mortality Measure Prognosis:: Poor Diagnosis: Stroke: No - Discharge Data Discharge Date: 03/14/21 Discharge Disposition: 20 Condition: - Referral to Home Health Primary Care Physician: Khang Fernando PA-C - Discharge Diagnosis/Problem(s) (1) Hypoxia SNOMED Code(s): 561549913 ICD Code: R09.02 - HYPOXEMIA Status: Acute (2) Pneumonia due to COVID-19 virus SNOMED Code(s): 103302113811538333 ICD Code: U07.1 - COVID-19; J12.82 - PNEUMONIA DUE TO CORONAVIRUS DISEASE 2019 Status: Acute (3) Deep vein thrombosis, lower right extremity SNOMED Code(s): 159424380 ICD Code: I82.401 - ACUTE EMBOLISM AND THOMBOS UNSP DEEP VEINS OF R LOW EXTREM Status: Acute Qualifiers: Affected thrombotic vein of extremity: popliteal Chronicity: acute Qualified Code(s): I82.431 - Acute embolism and thrombosis of right popliteal vein (4) Respiratory failure with hypoxia SNOMED Code(s): 64613517139375958 ICD Code: J96.91 - RESPIRATORY FAILURE, UNSPECIFIED WITH HYPOXIA Status: Acute - Patient Summary/Data Consults: Consultations 03/07/21 15:40 Respiratory Care Assess and Treatment [CONS] Routine Hospital Course: 65-year-old male with COVID-19 pneumonia and history of DVT COVID-19 pneumonia Acute hypoxic respiratory failure * Pulse ox and oxygen therapy, high flow/BiPAP as needed to maintain oxygen saturation greater than 90% * CT angiogram which showed slightly prominent lymph nodes most likely residual from patient's parenchymal process. Diffuse parenchymal densities within both sides of the chest stable from prior chest x-ray. No findings of pulmonary embolus. * Initial elevation in troponin resolved and likely secondary to increased cardiac output and covid 19 infection * Initial CRP significantly elevated at 23. * CRP daily; CRP increasing 4.9-7.0-9.2 * Initially high lactic acid of 2.5 resolved to 1.5 with fluids and oxygenation * Completed 5 day course of remdesivir, * completed Rocephin and azithromycin. * Continue dexamethasone to 20mg daily on 03/08 x 5 days (last dose scheduled on Wednesday), followed by 6mg daily * No benefit from CT of the chest. Patient already being anticoagulated. He had CTA chest on 03/06 - Negative for PE. * Eliquis is on hold (03/10) due to difficulty taking pills (sleeping and confusion) low (he is on Ativan for alcohol withdrawal) and Lovenox 90mg bid was ordered. * Platelets down to 85,000. 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 * Last occurrence was 2 years ago. * This places him at a high risk for recurrent VTE considering Covid increases thrombosis * US Doppler showed DVT within the distal right superficial femoral or popliteal vein. * He missed 1 dose of Eliquis on 101, but this is very unlikely to be a treatment failure * Patient has increased risk of bleeding secondary to low platelets and on Lovenox Hypertension/hyperlipidemia Chronic alcohol abuse/alcohol withdrawal * drinks alcohol every day for 3 to 4 years. But as , he last use of alcohol was 15-20 days ago. * CITX protocol was initiated. * CT of head negative for acute change * MRI of brain: Unable to performed * Ammonia 21 -on March 12, 2021 * Patient appears to be uncomfortable. Will restart his Ativan and add morphine * urine drug screen was not done in the ER. But do not see he has any daniel of substance abuse * He may need a neurology * Continue to monitor Plan * Admit to medical floor * HF/BIPAP PRN to keep SPO2 above 90%. Currently on BiPAP * I-S, prone positioning, RT, and Covid specific routine care * Albuterol, duo nebs as needed * Continue dexamethasone * Continue baricitinib * Completed remdesivir * Morphine 2 mg IV every hour as needed for pain and shortness of breath * Follow CBC, CMP, mag, and C-reactive protein. * Decrease TPN secondary to hyponatremia. Will wait for family decision on comfort measures before addressing new changes. * VTE therapeutic Lovenox * CODE STATUS: DNR/DNI * Prognosis: Poor. Had a long conversation with the about his condition. Patient has a very high mortality rate and he also does not want to be intubated. She still wants us to continue doing everything up to intubation. Because of his significant worsening in oxygen saturations Dr. Mcintosh and I recommended baricitinib to her. Dr. Mcintosh and I spoke with Tre to provide information about baricitinib. Dr. Mcintosh and Misty offered the "fax sheet for patients and parents/caregivers, for baricitinib" to read and review. Dr. Mcintosh and Misty stated that therapy has been approved by an emergency use authorization process and has not fully been FDA reviewed or approved. Dr. Mcintosh and Misty shared potential risks from the therapy including increased risk for serious infections, anaphylaxis, and reaction to medication. Dr. Mcintosh and Misty discussed there are other potential treatment options that are currently not FDA approved to treat COVID-19. Offered opportunity to ask questions and all questions were answered. Tre voiced understanding and agreed to proceed with treatment. - Discharge Plan *PRESCRIPTION DRUG MONITORING PROGRAM REVIEWED*: Not Applicable *COPY OF PRESCRIPTION DRUG MONITORING REPORT IN PATIENT BENNY: Not Applicable Home Medications: Home Meds Omeprazole 20 mg PO BID 06/07/15 [History] atorvaSTATin [Lipitor] 20 mg PO DAILY 03/21/16 [History] Furosemide 40 mg PO DAILY 06/04/16 [History] Apixaban [Eliquis] 5 mg PO BID 08/25/18 [History] Cholecalciferol (Vitamin D3) [Vitamin D] 50 mcg PO DAILY 08/25/18 [History] Albuterol [Proventil HFA] 2 puff INH Q6HR 12/22/19 [History] Fluticasone Propionate [24 Hour Allergy] 2 spray NASBOTH DAILY 12/22/19 [ History] Lutein/Minerals/Vit A,C & E [Ocuvite] 1 tab PO DAILY 03/07/21 [History] Patient Handouts: COVID-19 Frequently Asked Questions, COVID-19, 10 Things You Can Do to Manage Your COVID-19 Symptoms at Home - [facility] (12/06/2020), Sepsis, Self Care, Adult Forms: ED Department Discharge Referrals: Khang Fernando PA-C [Primary Care Provider] - - Discharge Summary/Plan Comment DC Time >30 min.: Yes Total # of Minutes for Discharge Time: 60 minutes - Patient Data Vitals - Most Recent: Last Vital Signs Temp 98.2 F 03/14/21 21:08 Pulse 99 03/14/21 21:08 Resp 30 H 03/14/21 21:08 BP 142/82 H 03/14/21 21:08 Pulse Ox 65 L 03/14/21 22:30 Weight - Most Recent: 201 lb 4.8 oz Med Orders - Current: Current Medications Discontinued Medications Acetaminophen (Acetaminophen 325 Mg Tab) 650 mg PO Q4H PRN PRN Reason: Pain (Mild 1-3)/fever Hydrocodone Bitart/Acetaminophen (Acetaminophen/Hydrocodone 325-5 Mg Tab) 1 tab PO Q4H PRN PRN Reason: Pain (moderate 4-6) Albuterol (Albuterol 6.7 Gm Inhaler) 0 gm INH Q6H [facility] Last Admin: 03/12/21 03:41 Dose: 2 puff Documented by: Albuterol (Albuterol 6.7 Gm Inhaler) 0 gm INH Q6H PRN PRN Reason: sob wheezing Albuterol/Ipratropium (Albuterol/Ipratropium 3.0-0.5 Mg/3 Ml Neb Soln) 3 ml NEB Q4HRRT PRN PRN Reason: Shortness of Breath Last Admin: 03/13/21 20:38 Dose: 3 ml Documented by: Apixaban (Apixaban 5 Mg Tab) 5 mg PO BID [facility] Last Admin: 03/10/21 09:26 Dose: Not Given Documented by: Aspirin (Aspirin 81 Mg Tab.Chew) 324 mg PO ONETIME ONE Stop: 03/06/21 12:46 Last Admin: 03/06/21 13:01 Dose: 324 mg Documented by: Atorvastatin Calcium (Atorvastatin 20 Mg Tab) 20 mg PO DAILY [facility] Last Admin: 03/11/21 10:05 Dose: Not Given Documented by: Baricitinib (Baricitinib 2 Mg Tab) 2 mg PO Q24H [facility] Stop: 03/20/21 21:31 Last Admin: 03/14/21 21:10 Dose: Not Given Documented by: Bisacodyl (Bisacodyl 10 Mg Supp) 10 mg RECTAL ONETIME ONE Stop: 03/13/21 07:01 Last Admin: 03/13/21 07:51 Dose: Not Given Documented by: Calcium Carbonate/Glycine (Calcium Carbonate 500 Mg Tab.Chew) 1,000 mg PO ONETIME ONE Stop: 03/07/21 09:38 Last Admin: 03/07/21 09:53 Dose: 1,000 mg Documented by: Dexamethasone (Dexamethasone 10 Mg/Ml Sdv) 6 mg IVPUSH DAILY [facility] Stop: 03/15/21 09:01 Last Admin: 03/08/21 08:29 Dose: 6 mg Documented by: Dexamethasone (Dexamethasone 10 Mg/Ml Sdv) 20 mg IVPUSH DAILY [facility] Stop: 03/14/21 23:59 Last Admin: 03/14/21 08:33 Dose: 20 mg Documented by: Dexamethasone (Dexamethasone 4 Mg Tab) 6 mg PO DAILY [facility] Dexamethasone (Dexamethasone 10 Mg/Ml Sdv) 6 mg IVPUSH DAILY [facility] Enoxaparin Sodium (Enoxaparin 40 Mg/0.4 Ml Syringe) 40 mg SUBCUT DAILY [facility] Enoxaparin Sodium (Enoxaparin 100 Mg/1 Ml Syringe) 90 mg SUBCUT ONETIME ONE Stop: 03/08/21 13:46 Last Admin: 03/08/21 14:20 Dose: 90 mg Documented by: Enoxaparin Sodium (Enoxaparin 100 Mg/1 Ml Syringe) 90 mg 1 mg/kg (90 mg) SUBCUT BID [facility] Last Admin: 03/14/21 21:10 Dose: 90 mg Documented by: Fluticasone Propionate (Fluticasone Propionate Nasal Superior 16 Gm Bottle) 0 gm NASBOTH DAILY [facility] Last Admin: 03/14/21 08:41 Dose: Not Given Documented by: Furosemide (Furosemide 40 Mg Tab) 40 mg PO DAILY [facility] Last Admin: 03/09/21 10:13 Dose: 40 mg Documented by: Sodium Chloride (Normal Saline) 1,000 mls @ 250 mls/hr IV ONETIME ONE Stop: 03/06/21 13:50 Last Admin: 03/06/21 09:55 Dose: 250 mls/hr Documented by: Ceftriaxone Sodium 1 gm/ (Sodium Chloride) 100 mls @ 200 mls/hr IV ONETIME ONE Stop: 03/06/21 11:04 Last Admin: 03/06/21 10:44 Dose: 200 mls/hr Documented by: Sodium Chloride (Normal Saline) 100 mls @ 60 mls/hr IV ASDIRECTED [facility] Last Admin: 03/06/21 11:10 Dose: 60 mls/hr Documented by: Sodium Chloride (Normal Saline) 1,000 mls @ 150 mls/hr IV ASDIRECTED [facility] Last Admin: 03/06/21 14:48 Dose: 150 mls/hr Documented by: Remdesivir 200 mg/ Sodium (Chloride) 250 mls @ 250 mls/hr IV ONETIME ONE Stop: 03/06/21 16:18 Last Admin: 03/06/21 16:56 Dose: 250 mls/hr Documented by: Azithromycin 500 mg/ Sodium (Chloride) 250 mls @ 250 mls/hr IV Q24H [facility] Last Admin: 03/09/21 15:54 Dose: 250 mls/hr Documented by: Remdesivir 100 mg/ Sodium (Chloride) 100 mls @ 100 mls/hr IV Q24H [facility] Stop: 03/10/21 18:14 Last Admin: 03/10/21 16:47 Dose: 100 mls/hr Documented by: Ceftriaxone Sodium 2 gm/ (Sodium Chloride) 100 mls @ 200 mls/hr IV Q24H [facility] Stop: 03/10/21 17:29 Last Admin: 03/09/21 17:10 Dose: 200 mls/hr Documented by: Dextrose/Water (Dextrose 5% In Water) 1,000 mls @ 50 mls/hr IV ASDIRECTED [facility] Last Admin: 03/11/21 10:19 Dose: 50 mls/hr Documented by: Azithromycin 500 mg/ Sodium (Chloride) 250 mls @ 250 mls/hr IV Q24H [facility] Azithromycin 500 mg/ Sodium (Chloride) 250 mls @ 250 mls/hr IV ONETIME ONE Stop: 03/10/21 15:44 Last Admin: 03/10/21 14:44 Dose: 250 mls/hr Documented by: Sodium Chloride (Sodium Chloride 0.45%) 1,000 mls @ 65 mls/hr IV ASDIRECTED [facility] Stop: 03/12/21 14:00 Last Admin: 03/12/21 10:43 Dose: 65 mls/hr Documented by: Multivitamins/Minerals 10 ml/Amino Ac/Electrol/Dextrose/Calcium 1,010 mls @ 35 mls/hr IV TITRATE [facility] Stop: 03/13/21 13:29 Last Admin: 03/12/21 13:37 Dose: 35 mls/hr Documented by: Non-Formulary Medication (Nf Drug) 540 mls @ 45 mls/hr IVPUSH ONETIME ONE Stop: 03/13/21 12:29 Last Admin: 03/13/21 00:30 Dose: 45 mls/hr Documented by: Fat Emulsion Intravenous (Intralipid 20%) 500 mls @ 62.5 mls/hr IV MoWeFr [facility] Last Admin: 03/14/21 14:49 Dose: 62.5 mls/hr Documented by: Sodium Chloride (Sodium Chloride 0.45%) 1,000 mls @ 50 mls/hr IV ASDIRECTED [facility] Sodium Chloride (Sodium Chloride 0.45%) 1,000 mls @ 50 mls/hr IV ASDIRECTED [facility] Last Admin: 03/14/21 21:10 Dose: 50 mls/hr Documented by: Multivitamins/Minerals 10 ml/Amino Ac/Electrol/Dextrose/Calcium 1,010 mls @ 35 mls/hr IV Q24H [facility] Last Admin: 03/14/21 16:00 Dose: 35 mls/hr Documented by: Insulin Human Lispro (Insulin Lispro 100 Unit/Ml 3 Ml Kwikpen) 0 unit SUBCUT Q4H [facility]; Protocol Last Admin: 03/15/21 00:45 Dose: Not Given Documented by: Iopamidol (Iopamidol 755 Mg/Ml 100 Ml Bottle) 100 ml IVPUSH ONETIME ONE Stop: 03/06/21 10:41 Last Admin: 03/06/21 11:09 Dose: 100 ml Documented by: Lorazepam (Lorazepam 2 Mg/Ml Sdv) 1 mg IVPUSH Q6H PRN; Protocol PRN Reason: Anxiety Last Admin: 03/09/21 01:37 Dose: 1 mg Documented by: Lorazepam (Lorazepam 2 Mg/Ml Sdv) Confirm Administered Dose 2 mg .ROUTE .STK-MED ONE Stop: 03/09/21 01:26 Last Admin: 03/09/21 02:20 Dose: Not Given Documented by: Lorazepam (Lorazepam 2 Mg/Ml Sdv) 1 - 3 mg IVPUSH Q1H PRN; Protocol PRN Reason: Anxiety Lorazepam (Lorazepam 2 Mg/Ml Sdv) 1 - 3 mg IVPUSH Q1H PRN; Protocol PRN Reason: Anxiety Last Admin: 03/09/21 13:55 Dose: 1 mg Documented by: Lorazepam (Lorazepam 2 Mg/Ml Sdv) 1 - 2 mg IVPUSH Q1H PRN; Protocol PRN Reason: Withdrawal Symptoms Last Admin: 03/12/21 08:14 Dose: 2 mg Documented by: Lorazepam (Lorazepam 2 Mg/Ml Sdv) 1 mg IM ONETIME ONE Stop: 03/11/21 21:12 Last Admin: 03/11/21 21:16 Dose: Not Given Documented by: Lorazepam (Lorazepam 2 Mg/Ml Sdv) 1 mg IVPUSH Q6HR PRN PRN Reason: tachypnea/anxiety Last Admin: 03/14/21 16:46 Dose: 1 mg Documented by: Lorazepam (Lorazepam 2 Mg/Ml Sdv) 1 mg IVPUSH Q1H PRN PRN Reason: tachypnea/anxiety Last Admin: 03/14/21 22:40 Dose: 1 mg Documented by: Midazolam HCl (Midazolam 1 Mg/Ml 2 Ml Sdv) 1 - 2 mg IVPUSH ONETIME ONE Stop: 03/12/21 09:18 Last Admin: 03/12/21 09:38 Dose: 1 mg Documented by: Morphine Sulfate (Morphine 2 Mg/Ml Syringe) 2 mg IVPUSH Q1H PRN PRN Reason: Pain Last Admin: 03/14/21 22:30 Dose: 2 mg Documented by: Ondansetron HCl (Ondansetron 4 Mg/2 Ml Sdv) 4 mg IV Q6H PRN PRN Reason: Nausea/Vomiting Pantoprazole Sodium (Pantoprazole 40 Mg Tab.Cr) 40 mg PO BIDAC [facility] Last Admin: 03/10/21 05:38 Dose: Not Given Documented by: Pantoprazole Sodium (Pantoprazole 40 Mg Vial) 40 mg IVPUSH DAILY [facility] Last Admin: 03/14/21 08:31 Dose: 40 mg Documented by: Pharmacy Consult (Pharmacy Consult Order) 1 each .XX DAILY PRN PRN Reason: LABS AND ELECTROLYTES Sodium Chloride (Sodium Chloride 0.9% 10 Ml Syringe) 10 ml FLUSH ONETIME PRN PRN Reason: Keep Vein Open Last Admin: 03/09/21 18:57 Dose: 30 ml Documented by: Trazodone HCl (Trazodone 50 Mg Tab) 50 mg PO BEDTIME PRN PRN Reason: Insomnia Last Admin: 03/08/21 23:28 Dose: 50 mg Documented by:
== END 2021-03-15 01:19 | disposition expired | DRG 177 ==
LOC: JD.ED 08:56 → UNDOADMIN 03-07 10:11 → JD.MS 03-07 10:11
PROVIDERS: ADMIT Family Medicine; ATTEND Family Medicine
PROC: 8E0ZXY6 Isolation (ICD-10-PCS; principal; 2021-03-06)
PROC: XW033E5 Introduction of Remdesivir Anti-infective into Peripheral Vein, Percutaneous Approach, New Technology Group 5 (ICD-10-PCS; 2021-03-06)
PROC: 3E0333Z Introduction of Anti-inflammatory into Peripheral Vein, Percutaneous Approach (ICD-10-PCS; 2021-03-06)
PROC: 5A0955A Assistance with Respiratory Ventilation, Greater than 96 Consecutive Hours, High Flow/Velocity Cannula (ICD-10-PCS; 2021-03-08)
PROC: XW0DXM6 Introduction of Baricitinib into Mouth and Pharynx, External Approach, New Technology Group 6 (ICD-10-PCS; 2021-03-10)
PROC: 05H633Z Insertion of Infusion Device into Left Subclavian Vein, Percutaneous Approach (ICD-10-PCS; 2021-03-12)
PROC: 3E0336Z Introduction of Nutritional Substance into Peripheral Vein, Percutaneous Approach (ICD-10-PCS; 2021-03-12)
DX: U07.1 COVID-19 (principal); J12.89 Other viral pneumonia; R09.02 Hypoxemia; J12.82 Pneumonia due to coronavirus disease 2019; I10 Essential (primary) hypertension; J96.01 Acute respiratory failure with hypoxia; G47.30 Sleep apnea, unspecified; I82.431 Acute embolism and thrombosis of right popliteal vein; F10.239 Alcohol dependence with withdrawal, unspecified; E87.1 Hypo-osmolality and hyponatremia; E78.5 Hyperlipidemia, unspecified; Z66 Do not resuscitate; E66.9 Obesity, unspecified; R51.9 Headache, unspecified; K21.9 Gastro-esophageal reflux disease without esophagitis; K44.9 Diaphragmatic hernia without obstruction or gangrene; M54.9 Dorsalgia, unspecified; M54.2 Cervicalgia; G89.29 Other chronic pain; M19.90 Unspecified osteoarthritis, unspecified site; R77.8 Other specified abnormalities of plasma proteins; E86.0 Dehydration; H54.7 Unspecified visual loss; J32.9 Chronic sinusitis, unspecified; I12.9 Hypertensive chronic kidney disease with stage 1 through stage 4 chronic kidney disease, or unspecified chronic kidney disease; N18.9 Chronic kidney disease, unspecified; D69.6 Thrombocytopenia, unspecified; R31.9 Hematuria, unspecified; Z86.16 Personal history of COVID-19; Z98.890 Other specified postprocedural states; Z87.891 Personal history of nicotine dependence; Z91.030 Bee allergy status; Z79.51 Long term (current) use of inhaled steroids; Z79.899 Other long term (current) drug therapy; Z86.718 Personal history of other venous thrombosis and embolism; Z79.01 Long term (current) use of anticoagulants; Z68.30 Body mass index [BMI] 30.0-30.9, adult
CPT/HCPCS: 36415 ×2; 36600; 71045; 71275; 80048; 80053; 80076; 81001; 82728; 82803; 83605 ×3; 83735 ×2; 83880; 84145; 84484 ×3; 85025; 85379; 85610; 85730; 86140; 87040 ×2; 93005; 96365; 96366; 96375; 99285; A9270 ×4; J0456; J0696; J1100 ×2; J7030 ×2; J7050 ×2; Q9967; U0002; 36569; 36573; 51701; 70450; 70450-26; 82140; 82947; 84100; 93971-26-RT; 93971-RT; 94640; 94660; 94762; 99223; 99232; 99233; C1751; C9113; J1650; J1815; J2060; J2250; J2270; J7060; J7620-GY